=== PATIENT | male | born 1990 | race Caucasian/White ===

== ENCOUNTER 2021-05-21 18:14 | Emergency (ER) | payer OTHER, SELFPAY ==
[2021-05-21 18:15] VITALS: BP 151/82; PULSE 81; RESP 20; TEMP 37.2; O2SAT 97; BMI 54.2
[2021-05-21 18:50] LABS: UTC Strep Screen (Rapid) Positive (Negative)
[2021-05-21 18:51] LABS: UTC Influenza A Antigen Negative (Negative); UTC Influenza B Antigen Negative (Negative)
--- NOTE | 2021-05-21 19:00 | HMH.EDUTC ---
[facility] [place] Disposition Clinical Impression: Strep sore throat Disposition: Home, Self-Care Condition on Discharge: Good Instructions: DI for Strep Throat Additional Instructions: Start antibiotics today be sure to take it as ordered with the full length of time although you should start feeling better in 24-48 hours. Change toothbrush and toothpaste 24-48 hours after starting antibiotics Tylenol or Motrin as needed for fever or pain Encourage fluids, water, Gatorade, Powerade, try cold fluids, popsicles, ice cream will make it feel better You are contagious for 24 hours. Avoid kissing anyone, no eating or drinking after anyone. You are contagious. Follow-up the ER for new or worsening symptoms or no noticeable improvement over the next 24-48 hours. Follow-up with PCP this week. Prescriptions: Azithromycin [Zithromax 200mg/5ml Oral Susp.] 500 mg PO ONCE 5 Days #100 ml Transmission Status: Pending to [facility] Referrals: Kaelyn Sanchez [Primary Care Provider] - Time of Disposition: 19:04 Medical Decision Making - Marin Inquiry Pt receiving controlled substance: No Vital Signs: 05/21/21 18:15 Temperature 99.0 F Temperature Source Oral Pulse Rate [Right Brachial] 81 Respiratory Rate 20 Blood Pressure [Right Arm] 151/82 H Blood Pressure Mean [Right Arm] 105 Blood Pressure Source [Right Arm] Automatic Cuff Blood Pressure Position [Right Arm] Sitting 02 Sat by Pulse Oximetry 97 Oxygen Delivery Method Room Air - Lab Data Lab Results 05/21/21 18:33: Influenza Type A Ag Negative, Influenza Type B Ag Negative 05/21/21 18:33: Strep Scn Rapid Clinic Positive A Orders (Tests/Meds): ORDERS Category Date Time Status Covid-19 Nasal PCR ([facility]) Routine Lab 05/21/21 18:[address] [facility] [place] HPI - General Chief complaint: Urgent Treatment Center Stated complaint: SORE THROAT,sob. COVID TEST Time Seen by Provider: 05/21/21 19:01 Mode of Arrival: Ambulatory Source of Information: Patient Limitations: No Limitations Description of Symptoms (Recalled from Triage Doc. by RN): PATIENT C/O SOA, SORE THROAT, AND FATIGUE X 2 DAYS. RECENTLY EXPOSED TO COVID HEENT Symptoms (Recalled from RN notes): Yes Resp Symptoms (Recalled from RN notes): No Skin Symptoms (Recalled from RN notes): No MS Symptoms (Recalled from RN notes): No Functional Status (Recalled from RN notes): WNL - History of Present Illness Provider Complaint: 31 yr old male presents for sore throat and soa. - Related Data Previous Rx's Medication Instructions Recorded Azithromycin [Zithromax 200mg/5ml 500 mg PO ONCE 5 Days #100 ml 05/21/21 Oral Susp.] Allergies Allergy/AdvReac Type Severity Reaction Status Date / Time No Known Allergies Allergy Verified 05/21/21 18:39 - Worker's Comp Is this a Worker's Comp case?: No [facility] History - Hepatitis A Screen Drug use history?: No High risk sexual behaviors?: No History of sexually transmitted infection?: No Currently employed?: No Childcare worker?: No Do you have indoor plumbing?: Yes Do you have electricity?: Yes Attestation statement:: This patient has been screened for Hepatitis A risk factors. I have reviewed the patient's past medical history: Yes ROS Obtained: Yes Systems reviewed as appropriate & no additional complaints - Constitutional Constitutional: Reports system reviewed and no additional complaints, except as docu, Denies fever(s) - Eyes Eyes: Reports system reviewed and no additional complaints, except as docu, Denies blurry vision - ENT Ears, Nose, Mouth, and Throat: Reports system reviewed and no additional complaints, except as docu, Reports sore throat - Cardiovascular Cardiovascular: Reports system reviewed and no additional complaints, except as docu, Denies chest pain - Respiratory Respiratory: Reports system reviewed and no additional complaints, except as docu, Reports shortness of breath, Denies chest congestion, Reports cough - Ga
[2021-05-21 19:06] VITALS: BP 151/82; PULSE 81; RESP 20; TEMP 37.2; O2SAT 97
== END 2021-05-21 19:13 | disposition home or self-care (01) ==
PROVIDERS: Emergency Provider Nurse Practitioner Family; PCP Nurse Practitioner Family
DX: J02.0 Streptococcal pharyngitis (principal)
CPT/HCPCS: 87804; 87880; 99203; C9803; G0463; U0003; U0005

== ENCOUNTER 2021-05-31 07:42 | Emergency (ER) | payer OTHER, SELFPAY ==
[2021-05-31 07:44] VITALS: BP 152/105; PULSE 88; RESP 18; TEMP 36.7; O2SAT 98; BMI 54.2
--- NOTE | 2021-05-31 08:06 | XR_ITS ---
PROCEDURE: XR CHEST 2V CLINICAL HISTORY: coughing up blood COMPARISON: No exams were available for comparison FINDINGS: The cardiomediastinal silhouette and pulmonary vascularity are within normal limits. The lungs are clear without infiltrates, suspicious nodules, or pleural effusions. Degenerative changes thoracic spine with mild kyphosis IMPRESSION: No acute findings. Dictated by: Jarrett Aguirre MD 05/31/2021 08:52 Jarrett Aguirre MD in [place] 05/31/2021 08:52
--- NOTE | 2021-05-31 08:24 | ECG_ITS ---
APPROVED REPORT Exam: Resting ECG HR:75 bpm ECG Measurements Heart Rate 75 AXES LA 148 P 30 QRSd 94 QRS 22 QT 376 T 16 QTc 419 Conclusion Normal sinus rhythm Normal ECG Electronically signed by : Zaire Downey MD 05/31/2021 20:33:43
[2021-05-31 08:42] LABS: Chloride 104 mmol/L (98-107); Sodium 140 mmol/L (136-145)
[2021-05-31 08:45] LABS: Alanine Aminotransferase 44 U/L (12-78); Albumin Level 4.5 g/dl (3.5-5.0); Albumin/Globulin Ratio 1.4 (1.1-1.8); Alkaline Phosphatase 73 U/L (38-126); Aspartate Amino Transferase 40 U/L (17-59); Bilirubin,Total 0.4 mg/dl (0.2-1.3); Blood Urea Nitrogen 15 mg/dl (9-20); Calcium 9.1 mg/dl (8.4-10.2); Carbon Dioxide 26 mmol/L (22.0-30.0); Creatinine Clearance Estimated 129 mL/min (50-200); Estimated Glomerular Filt Rate 98 ml/min (>60); GFR (African American) 118 ML/MIN (>60); Globulin 3.3 g/dL (1.3-3.2); Glucose 130 mg/dl (74-100); Total Protein,Serum 7.8 g/dl (6.3-8.2)
[2021-05-31 08:58] LABS: Troponin I < 0.01 ng/ml (0.00-0.034)
--- NOTE | 2021-05-31 09:29 | HMH.EDGENADL ---
ED Disposition Clinical Impression: Hemoptysis Disposition: Home, Self-Care Condition on Discharge: Fair Referrals: Kaelyn Sanchez [Primary Care Provider] - - Critical Care Critical Care Time: No Attestation: On 05/31/21, the high probability of a clinically significant, sudden or life threatening deterioration of the following system(s) required my full and direct attention, intervention and personal management. The time I documented below is in addition to time spent performing reported procedures but includes the following listed in this critical care notation. Medical Decision Making - Medical Records Medical records reviewed: Yes: I reviewed the patient's medical records. - Marin Inquiry Pt receiving controlled substance: No Marin was queried for this patient: No Vital Signs: 05/31/21 07:44 Temperature 98.1 F Temperature Source Oral Pulse Rate [Right Radial] 88 Respiratory Rate 18 Blood Pressure [Right Arm] 152/105 H Blood Pressure Mean [Right Arm] 120 Blood Pressure Source [Right Arm] Automatic Cuff Blood Pressure Position [Right Arm] Sitting 02 Sat by Pulse Oximetry 98 Oxygen Delivery Method Room Air - Lab Data Lab results reviewed: Yes: I reviewed the patient's lab results. Lab Results 05/31/21 08:15: WBC 9.7, RBC 5.21, Hgb 14.0 L, Hct 43.4, MCV 83.2, MCH 26.9 L, MCHC 32.4, RDW 14.5, Plt Count 288, MPV 8.6, Neut % (Auto) 72.7, Lymph % (Auto) 17.1, [place] % (Auto) 6.8, Eos % (Auto) 2.5, Baso % (Auto) 0.8, Neut # (Auto) 7.1, Lymph # (Auto) 1.7, [place] # (Auto) 0.7, Eos # (Auto) 0.2, Baso # (Auto) 0.1 05/31/21 08:15: PT 10.8, INR 0.95 05/31/21 08:15: D-Dimer 0.55 H 05/31/21 08:15: Sodium 140, Potassium 4.0, Chloride 104, Carbon Dioxide 26, Anion Gap 14.0, BUN 15, Creatinine 0.90, Estimated Creat Clear 129, Estimated GFR 98, Est GFR ( Amer) 118, Glucose 130 H, Calcium 9.1, Total Bilirubin 0.4, AST 40, ALT 44, Alkaline Phosphatase 73, Troponin I < 0.01, Total Protein 7.8, Albumin 4.5, Globulin 3.3 H, Albumin/Globulin Ratio 1.4 05/31/21 11:25: Troponin I < 0.01 Result diagrams: 05/31/21 08:15 05/31/21 08:15 Orders (Tests/Meds): ED MEDICATIONS Discontinued Medications Generic Name Dose Route Start Last Admin Trade Name Dayna PRN Reason Stop Dose Admin Iopamidol 100 ml 05/31/21 11:11 05/31/21 11:10 Iopamidol-370 (76%);100ml Bottle IV 05/31/21 11:12 100 ml ONCE ONE Administration Sodium Chloride 50 ml 05/31/21 11:11 05/31/21 11:10 0.9 % Sodium Chloride 50 Ml Vial IV 05/31/21 11:12 50 ml ONCE ONE Administration Sodium Chloride 10 ml 05/31/21 11:11 05/31/21 11:10 Sodium Chloride 0.9% 10ml Syr (Rad Only) IV 05/31/21 11:12 10 ml ONCE ONE Administration ORDERS Category Date Time Status Troponin I Q3H Lab 05/31/21 14:30 Ordered Medical Decision Narrative: Patient is a 31-year-old male past medical history presenting to the ED for hemoptysis. Patient is awake, alert, not in acute distress. Patient is hemodynamically stable, afebrile. Patient's physical exam is unremarkable. Has clear breath sounds bilaterally. Extremity edema, no calf tenderness. Differential includes but is not limited to airway irritation, bronchitis, low concern for pulmonary embolism, pulmonary infarct. given this a CBC, CMP, troponin, EKG, D-dimer, chest x-ray is performed. Lab work is unremarkable except for the D-dimer which is mildly elevated, chest x-ray is unremarkable. CT PE is performed which is negative for any pulmonary embolism, airspace disease. At this point patient stable for discharge. Patient is given strict return precautions and follow-up instructions. General Adult HPI - General Chief complaint: Upper Respiratory Infection Stated complaint: spitting up blood Time Seen by Provider: 05/31/21 08:29 Mode of Arrival: Ambulatory Limitations: No Limitations Description of Symptoms (Recalled from ER Triage Doc. by RN): Pt reports he woke up this morning
--- NOTE | 2021-05-31 10:17 | PC.NURSE ---
lab staff states they are working on cbc and ddimer at this time
[2021-05-31 10:29] LABS: D-Dimer 0.55 ug/mL (0.0-0.5)
[2021-05-31 10:37] LABS: Basophils # 0.1 K/mm3 (0-0.2); Basophils % 0.8 % (0.1-2.0); Eosinophils # 0.2 K/mm3 (0.0-0.4); Eosinophils % 2.5 % (0.1-12.0); Hematocrit 43.4 % (42.0-52.0); Lymphocytes # 1.7 K/mm3 (0.7-4.5); Lymphocytes % 17.1 % (10-50); Mean Corpuscular HGB Conc 32.4 g/dL (31.8-35.4); Mean Corpuscular Hemoglobin 26.9 pg (27.0-31.2); Mean Corpuscular Volume 83.2 fl (80-94); Mean Platelet Volume 8.6 fl (7.4-10.4); Monocytes # 0.7 K/mm3 (0.1-1.0); Monocytes % 6.8 % (1.7-9.3); Neutrophils # 7.1 K/mm3 (1.8-7.8); Neutrophils % 72.7 % (37.0-80.0); Platelet Count 288 K/mm3 (142-424); Red Blood Count 5.21 M/mm3 (4.60-6.20); Red Cell Distribution Width 14.5 % (11.5-17.5); White Blood Count 9.7 K/mm3 (4.8-10.8)
--- NOTE | 2021-05-31 10:39 | CT_ITS ---
PROCEDURE INFORMATION: Exam: CTA Chest With Contrast Exam date and time: 05/31/2021 10:39 AM Age: 31 years old Clinical indication: Abnormal findings; Other: Elevated d dimer; Other: Hemopytysis; Additional info: Elevated d dimer, hemopytysis TECHNIQUE: Imaging protocol: Computed tomographic angiography of the chest with contrast. 3D rendering (Not supervised by radiologist): MIP and/or 3D reconstructed images were created by the technologist. Radiation optimization: All CT scans at this facility use at least one of these dose optimization techniques: automated exposure control; mA and/or kV adjustment per patient size (includes targeted exams where dose is matched to clinical indication); or iterative reconstruction. Contrast material: ISOVUE 370; Contrast volume: 100 ml; Contrast route: INTRAVENOUS (IV); COMPARISON: CR XR CHEST 2V 05/31/2021 8:21 AM FINDINGS: Pulmonary arteries: Normal. No pulmonary emboli. Aorta: Unremarkable. No aortic aneurysm. No aortic dissection. Lungs: Unremarkable. No consolidation. No masses. Pleural spaces: Unremarkable. No pneumothorax. No pleural effusion. Heart: Unremarkable. No cardiomegaly. No pericardial effusion. Lymph nodes: Unremarkable. No enlarged lymph nodes. Gallbladder and bile ducts: Stones in the gallbladder. No inflammatory changes. Bones/joints: Unremarkable. No acute fracture. Soft tissues: Unremarkable. IMPRESSION: Unremarkable CT angiogram chest.
[2021-05-31 10:40] LABS: INR 0.95 (0.9-1.1); Prothrombin Time 10.8 seconds (10.1-12.5)
--- NOTE | 2021-05-31 10:55 | PC.NURSE ---
Going for CAT scan
[2021-05-31 11:54] LABS: Troponin I < 0.01 ng/ml (0.00-0.034)
[2021-05-31 12:30] VITALS: BP 152/105; PULSE 88; RESP 18; TEMP 36.7; O2SAT 98
== END 2021-05-31 12:30 | disposition home or self-care (01) ==
PROVIDERS: Emergency Provider Emergency Medicine; PCP Nurse Practitioner Family
DX: J06.9 Acute upper respiratory infection, unspecified (principal)
CPT/HCPCS: 36415; 71046; 71275; 80053; 84484; 85025; 85378; 85610; 93005; 99283; Q9967

== ENCOUNTER 2021-11-05 14:55 | Emergency (ER) | payer OTHER, SELFPAY ==
[2021-11-05 15:03] VITALS: BP 137/94; PULSE 87; RESP 18; O2SAT 99; BMI 51.3
--- NOTE | 2021-11-05 15:11 | XR_ITS ---
PROCEDURE INFORMATION: Exam: XR Left Ankle Exam date and time: 11/05/2021 3:30 PM Age: 31 years old Clinical indication: Pain; Ankle and foot; Left; Additional info: Pain- and swollen- no injury just pain TECHNIQUE: Imaging protocol: XR Left ankle. Views: 3 or more views. COMPARISON: No relevant prior studies available. FINDINGS: Bones/joints: No acute fracture or dislocation. Ankle mortise is intact. Normal bone mineralization. Soft tissues: Mild soft tissue swelling at the level of the ankle joint. IMPRESSION: Soft tissue swelling.
--- NOTE | 2021-11-05 15:11 | XR_ITS ---
PROCEDURE INFORMATION: Exam: XR Left Foot Exam date and time: 11/05/2021 3:32 PM Age: 31 years old Clinical indication: Pain; Ankle and foot; Left; Additional info: Pain and swollen at ankle -- no injury just pain TECHNIQUE: Imaging protocol: XR Left foot. Views: 3 or more views. COMPARISON: CR XR ANKLE LT MIN 3V 11/05/2021 3:30 PM FINDINGS: Bones/joints: No acute fracture or dislocation. Joint spaces are preserved. Normal bone mineralization. Soft tissues: Normal. IMPRESSION: No acute findings.
[2021-11-05 15:20] VITALS: BP 137/94; PULSE 87; RESP 18; TEMP 36.7; O2SAT 99; BMI 51.3
--- NOTE | 2021-11-05 15:44 | HMH.EDUTC ---
[facility] [place] Clinical Impression: Gout attack Qualifiers: Gout site: ankle Gout etiology: unspecified cause Laterality: left Qualified Code(s): M10.9 - Gout, unspecified Disposition: Home, Self-Care Condition on Discharge: Good Instructions: Gout, DI for Gout Additional Instructions: Take medication as prescribed Follow up with your Family Doctor for further treatment and evaluation Use Crutches to get around until able to walk on foot/ankle Return if needed Straight to ER if any life threatening symptoms Prescriptions: Colchicine [Colcrys 0.6mg tablet] 0.6 mg PO DIRECTED #6 tab Transmission Status: Received by [facility] [id number] Walker [Walker, Standard] 1 each MISCELLANE DIRECTED #1 each Prescription Printed Referrals: Kaelyn Sanchez [Primary Care Provider] - As needed Time of Disposition: 17:17 Medical Decision Making - Marin Inquiry Pt receiving controlled substance: No Marin was queried for this patient: No Vital Signs: 11/05/21 15:03 11/05/21 15:20 Temperature 98.0 F Temperature Source Oral Pulse Rate [Left Radial] 87 87 Respiratory Rate 18 18 Blood Pressure [Right Arm] 137/94 H 137/94 H Blood Pressure Mean [Right Arm] 108 108 Blood Pressure Source [Right Arm] Automatic Cuff Automatic Cuff Blood Pressure Position [Right Arm] Sitting Sitting 02 Sat by Pulse Oximetry 99 99 Oxygen Delivery Method Room Air Room Air - Lab Data Lab results reviewed: Yes: I reviewed the patient's lab results. Lab Results 11/05/21 16:30: Uric Acid 9.0 H Orders (Tests/Meds): ED MEDICATIONS Discontinued Medications Generic Name Dose Route Start Last Admin Trade Name Dayna PRN Reason Stop Dose Admin Ketorolac Tromethamine 60 mg 11/05/21 17:11 11/05/21 17:20 Ketorolac 60mg/2ml Vial IM 11/05/21 17:12 60 mg ONCE ONE Administration Methylprednisolone Sodium Succinate 125 mg 11/05/21 17:11 11/05/21 17:20 Methylprednisolone Sod Succ 125mg Vial IM 11/05/21 17:12 125 mg ONCE ONE Administration - Radiology Data #1 Image(s): Ankle Image Reviewed: Yes I have reviewed radiologist's interpretation IMPRESSION: Soft tissue swelling. #2 Image(s): Foot/Toes Image Reviewed: Yes I have reviewed radiologist's interpretation IMPRESSION: No acute findings. Medical Decision Narrative: Medication discussed with pharmacy [facility] [place] HPI - General Stated complaint: left foot pain, no accident Time Seen by Provider: 11/05/21 15:45 Mode of Arrival: Ambulatory Source of Information: Patient Limitations: No Limitations Description of Symptoms (Recalled from Triage Doc. by RN): PATIENT C/O PAIN TO LEFT FOOT AND INABILITY TO BEAR WEIGHT. 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 HEENT Symptoms (Recalled from RN notes): No Resp Symptoms (Recalled from RN notes): No Skin Symptoms (Recalled from RN notes): No MS Symptoms (Recalled from RN notes): Yes Functional Status (Recalled from RN notes): WNL - History of Present Illness Provider Complaint: Pt states that he started having pain in his left foot and ankle with swelling Denies known injury States that he has pain when he tries to bear weight on it and pain shoots through his foot and ankle States that he did twist it when he was younger not sure if he may have aggrivated an old injury - Related Data Home Medications Medication Instructions Recorded Confirmed Aspirin [Aspirin 81mg EC Tab] 81 mg PO DAILY 05/31/21 05/31/21 Previous Rx's Medication Instructions Recorded Azithromycin [Zithromax 200mg/5ml 500 mg PO ONCE 5 Days #100 ml 05/21/21 Oral Susp.] Fluticasone Propionate [Flonase 1 spr NS DAILY 14 Days #9.9 ml 05/21/21 50mcg nasal spray 16gm] Colchicine [Colcrys 0.6mg tablet] 0.6 mg PO DIRECTED #6 tab 11/05/21 Walker [Walker, Standard] 1 each MISCELLANE DIRECTED #1 11/05/21 each Allergies Allergy/AdvReac Type Severity Reacti
[2021-11-05 17:25] VITALS: BP 137/94; PULSE 87; RESP 18; TEMP 36.7; O2SAT 99
== END 2021-11-05 17:30 | disposition home or self-care (01) ==
LOC: UTC 15:16 → ER 16:01 → UTC 16:13
PROVIDERS: Emergency Provider Nurse Practitioner; PCP Nurse Practitioner Family
DX: M10.072 Idiopathic gout, left ankle and foot (principal)
CPT/HCPCS: 73610; 73630; 84550; 99213; G0463

== ENCOUNTER 2022-02-03 09:40 | Emergency (ER) | payer OTHER, SELFPAY ==
--- NOTE | 2022-02-03 10:06 | EXP.UTC ---
Discharge Plan Disposition Patient Disposition: Home, Self-Care Condition: Good Prescriptions Prescriptions: New methylprednisolone [Medrol (Cristian)] 4 mg tablets,dose pack 4 mg PO DIRECTED Qty: 21 0RF Rx Instructions: Per package instructions, starting Saturday morning No Action azithromycin 200 MG/5 ML suspension for reconstitution 500 mg PO ONCE 5 Days Qty: 100 0RF Rx Instructions: 500mg po day 1 then 250 mg po day 2-5 fluticasone propionate 120 SPR/BOT bottle 1 spr NS DAILY 14 Days Qty: 9.9 0RF aspirin 81 MG tablet,delayed release (DR/EC) 81 mg PO DAILY colchicine 0.6 MG tablet 0.6 mg PO DIRECTED Qty: 6 0RF Rx Instructions: Take 2 tablets now followed by 1 tablet (0.6mg) 1 hour later. may repeat in 72 hours (3 days) if still having pain (DME) Walker [Walker, Standard] 1 EACH Each 1 each MISCELLANE DIRECTED Qty: 1 0RF Referrals Follow up/Referrals: Kaelyn Sanchez [Primary Care Provider] - See instructions Activity Restrictions/Add. Instructions Additional Instructions/Restrictions: Follow up with Kaelyn Sanchez to discuss options to prevent future attacks Clinical Impressions Clinical Impression: Gout attack Instructions Patient Instructions: DI for Gout Discharge ED Provider: Tierra Lopez [facility] General Stated complaint: gout in L foot Time Seen by Provider: 02/03/22 10:06 History of Present Illness Provider Complaint: Pain, redness, swelling left ankle since he woke up this am. History of gout in same ankle a few months ago. Started after drinking mixed drink last night. No injury. Onset (ago): day(s) Location: left and lower extremity Radiation: non-radiation Relieving factors: none Exacerbating factors: none Associated symptoms: denies other symptoms Treatments prior to arrival: none Related Data Home Medications Medication Instructions Recorded Confirmed aspirin 81 mg tablet,delayed 81 mg PO DAILY heart health 05/31/21 05/31/21 release Previous Rx's Medication Instructions Recorded azithromycin 200 mg/5 mL oral 500 mg (12.5 mL) PO ONCE 5 days 05/21/21 suspension #100 mL fluticasone propionate 50 1 spr NS DAILY 14 days #9.9 mL 05/21/21 mcg/actuation nasal spray,suspension Walker [Walker, Standard] #1 ea 11/05/21 colchicine 0.6 mg tablet 0.6 mg PO DIRECTED #6 tabs 11/05/21 methylprednisolone 4 mg tablets in 4 mg PO DIRECTED #21 tabs 02/03/22 a dose pack (Medrol (Cristian)) Allergies Allergy/AdvReac Type Severity Reaction Status Date / Time No Known Allergies Allergy Verified 02/03/22 10:22 [facility] Social History (Updated 02/03/22 @ 10:22 by Jimi Grewal RN) Smoking Status: Unknown if ever smoked alcohol intake: current current occupational status: employed ROS Obtained: Yes All systems reviewed & no additional complaints except as documented Musculoskeletal Musculoskeletal: Reports abnormal gait and Reports arthralgias Neurologic Neurologic: Reports abnormal gait Physical Exam General General appearance: alert and in no apparent distress Head Head exam: atraumatic, normocephalic and normal inspection Eye Eye exam: Present normal appearance, PERRL and EOMI ENT ENT exam: Present normal exam, normal oropharynx, mucous membranes moist, TM's normal bilaterally and normal external ear exam Neck Neck exam: Present normal inspection, full ROM and trachea midline; Absent meningismus or lymphadenopathy Chest Chest inspection: Present normal inspection and symmetric chest wall rise; Absent tenderness Respiratory Respiratory exam: Present normal lung sounds bilaterally; Absent respiratory distress Cardiovascular Cardiovascular exam: Present regular rate and normal rhythm; Absent JVD Abdominal Exam Abdominal exam: Present soft and normal bowel sounds; Absent distention, tenderness or guarding Extremities Exam Extremities exam: Present normal inspection, full ROM and normal capillary
[2022-02-03 10:17] VITALS: BP 137/84; PULSE 84; RESP 15; TEMP 37.3; O2SAT 96; BMI 51.3
[2022-02-03 10:59] VITALS: BP 137/84; PULSE 84; RESP 15; TEMP 37.3
== END 2022-02-03 11:00 | disposition home or self-care (01) ==
PROVIDERS: Emergency Provider Physician Assistant; PCP Nurse Practitioner Family
DX: M10.9 Gout, unspecified (principal)
CPT/HCPCS: 96372; 99212; G0463; J1040

== ENCOUNTER 2022-05-23 13:06 | Emergency (ER) | payer OTHER, SELFPAY ==
[2022-05-23 14:45] VITALS: BP 123/74; PULSE 78; RESP 18; TEMP 37.1; O2SAT 98; BMI 51.3
--- NOTE | 2022-05-23 14:48 | EXP.UTC ---
Discharge Plan Disposition Patient Disposition: Home, Self-Care Condition: Good Prescriptions Prescriptions: New methylprednisolone 4 mg Tablets,Dose Pack 4 mg PO DIRECTED Qty: 21 0RF No Action azithromycin 200 MG/5 ML suspension for reconstitution 500 mg PO ONCE 5 Days Qty: 100 0RF Rx Instructions: 500mg po day 1 then 250 mg po day 2-5 fluticasone propionate 120 SPR/BOT bottle 1 spr NS DAILY 14 Days Qty: 9.9 0RF methylprednisolone [Medrol (Cristian)] 4 mg tablets,dose pack 4 mg PO DIRECTED Qty: 21 0RF Rx Instructions: Per package instructions, starting Saturday morning aspirin 81 MG tablet,delayed release (DR/EC) 81 mg PO DAILY colchicine 0.6 MG tablet 0.6 mg PO DIRECTED Qty: 6 0RF Rx Instructions: Take 2 tablets now followed by 1 tablet (0.6mg) 1 hour later. may repeat in 72 hours (3 days) if still having pain (DME) Walker [Walker, Standard] 1 EACH Each 1 each MISCELLANE DIRECTED Qty: 1 0RF Referrals Follow up/Referrals: Kaelyn Sanchez [Primary Care Provider] - See instructions Activity Restrictions/Add. Instructions Additional Instructions/Restrictions: Rest the extremity, apply ice for 15 minutes as tolerated three or four times per day, Wear the nohemi wrap for compression, Elevate the extremity as tolerated while you are resting. Take the mediction as directed. Don't start the oral steroids (methylprednisone) until tomorrow since you had the shot here today. Follow up with your regular doctor. GO TO THE ER FOR ANY WORSENING SYMPTOMS Clinical Impressions Clinical Impression: Gout attack Instructions Patient Instructions: NICOLA Enriquez for Gout Discharge ED Provider: Jude Pugh [facility] General Stated complaint: possible gout flare up Time Seen by Provider: 05/23/22 14:48 History of Present Illness Provider Complaint: He states that for the past 2 days he has had right ankle pain. He has a history of gout. It usually affects his other ankle, but he states that this feels just like his normal gout symptoms and he is sure that is what it is. He denies any injury. He denies any other joint pain. Related Data Home Medications Medication Instructions Recorded Confirmed aspirin 81 mg tablet,delayed 81 mg PO DAILY heart health 05/31/21 05/31/21 release Previous Rx's Medication Instructions Recorded azithromycin 200 mg/5 mL oral 500 mg (12.5 mL) PO ONCE 5 days 05/21/21 suspension #100 mL fluticasone propionate 50 1 spr NS DAILY 14 days #9.9 mL 05/21/21 mcg/actuation nasal spray,suspension Walker [Walker, Standard] #1 ea 11/05/21 colchicine 0.6 mg tablet 0.6 mg PO DIRECTED #6 tabs 11/05/21 methylprednisolone 4 mg tablets in 4 mg PO DIRECTED #21 tabs 02/03/22 a dose pack (Medrol (Cristian)) methylprednisolone 4 mg tablets in 4 mg PO DIRECTED #21 tabs 05/23/22 a dose pack Allergies Allergy/AdvReac Type Severity Reaction Status Date / Time No Known Allergies Allergy Verified 02/03/22 10:22 [facility] Disclaimer: The information contained in this section may have been updated after the patient was seen, as this information can be updated by other users. Social History Smoking Status: Unknown if ever smoked alcohol intake: current current occupational status: employed Travel in the last 8 weeks: None ROS Obtained: Yes All systems reviewed & no additional complaints except as documented Constitutional Constitutional: Denies chills and Denies fever(s) Integumentary/Breasts Skin/Breast: Denies redness, Denies rash and Denies wounds Neurologic Neurologic: Denies paresthesias Physical Exam General General appearance: alert and in no apparent distress Head Head exam: atraumatic, normocephalic and normal inspection Eye Eye exam: Present normal appearance, PERRL and EOMI ENT ENT exam: Present normal exam, normal oropharynx, mucous membranes
[2022-05-23 15:52] VITALS: BP 123/74; PULSE 78; RESP 18; TEMP 37.1
== END 2022-05-23 15:52 | disposition home or self-care (01) ==
PROVIDERS: Emergency Provider Nurse Practitioner Family; PCP Nurse Practitioner Family
DX: M25.571 Pain in right ankle and joints of right foot (principal); M10.9 Gout, unspecified; Z79.51 Long term (current) use of inhaled steroids; Z79.52 Long term (current) use of systemic steroids; Z79.82 Long term (current) use of aspirin; Z79.899 Other long term (current) drug therapy
CPT/HCPCS: 96372; 99213; G0463

== ENCOUNTER 2022-07-25 09:59 | Emergency (ER) | payer OTHER, SELFPAY ==
[2022-07-25 10:10] VITALS: BP 156/84; PULSE 83; RESP 20; TEMP 37.1; O2SAT 97; BMI 52.9
--- NOTE | 2022-07-25 10:10 | EXP.UTC ---
Discharge Plan Disposition Patient Disposition: Home, Self-Care Condition: Good Prescriptions Prescriptions: New esomeprazole magnesium [Nexium] 20 mg capsule,delayed release(DR/EC) 20 mg PO DAILY Qty: 30 2RF benzonatate [benzonatate] 100 mg capsule 100 mg PO TIDP PRN (Reason: Cough) Qty: 30 0RF methylprednisolone 4 mg Tablets,Dose Pack 4 mg PO DIRECTED Qty: 21 0RF amoxicillin [amoxicillin] 400 mg/5 mL suspension for reconstitution 500 mg PO TID 10 Days Qty: 187.5 0RF No Action aspirin 81 MG tablet,delayed release (DR/EC) 81 mg PO DAILY colchicine 0.6 MG tablet 0.6 mg PO DIRECTED Qty: 6 0RF Rx Instructions: Take 2 tablets now followed by 1 tablet (0.6mg) 1 hour later. may repeat in 72 hours (3 days) if still having pain (DME) Walker [Walker, Standard] 1 EACH Each 1 each MISCELLANE DIRECTED Qty: 1 0RF Referrals Follow up/Referrals: Nakul Zarate II, MD [Referring] - See instructions Kaelyn Sanchez [Primary Care Provider] - See instructions Activity Restrictions/Add. Instructions Additional Instructions/Restrictions: Drink plenty of fluids. Take tylenol or ibuprofen for pain or fever. Take the medications as directed. Follow up with your regular doctor. GO TO THE ER FOR ANY WORSENING SYMPTOMS Stop the prilosec that you are taking and start taking the nexium. If your insurance won't pay for the nexium, ask the pharmacist to call me here and we can discuss what your insurance will pay for. Keep taking the famotidine (pepcid). I am putting in a referral to the GI specialist (Dr. Zarate). Please call his office and get an appointment. If these symptoms have been going on for years despite taking medications for it, then you need to be checked out better to make sure it's not something besides acid reflux causing your symptoms. A GI specialist is the right person to do this. Clinical Impressions Clinical Impression: Pharyngitis, Acid reflux disease Stand Alone Forms Stand Alone Forms: Work/School Release Instructions Patient Instructions: DI for Pharyngitis/Tonsillopharyngitis -- Adult, DI for Gastroesophageal Reflux Disease (GERD), GERD Diet, Esomeprazole Discharge ED Provider: Jude [place]ugh [facility] [place] General Stated complaint: Sore throat congestion drainage sinus pain Time Seen by Provider: 07/25/22 10:09 History of Present Illness Provider Complaint: He states that for the past 1 day he has had sore throat, sinus congestion and malaise. Related Data Home Medications Medication Instructions Recorded Confirmed aspirin 81 mg tablet,delayed 81 mg PO DAILY heart health 05/31/21 05/31/21 release Previous Rx's Medication Instructions Recorded Jesus [Jesus, Ramone] #1 ea 11/05/21 colchicine 0.6 mg tablet 0.6 mg PO DIRECTED #6 tabs 11/05/21 amoxicillin 400 mg/5 mL oral 500 mg (6.25 mL) PO TID 10 days 07/25/22 suspension #187.5 mL benzonatate 100 mg capsule 100 mg PO TIDP PRN Cough #30 caps 07/25/22 esomeprazole magnesium 20 mg 20 mg PO DAILY #30 caps 07/25/22 capsule,delayed release (Nexium) methylprednisolone 4 mg tablets in 4 mg PO DIRECTED #21 tabs 07/25/22 a dose pack Allergies Allergy/AdvReac Type Severity Reaction Status Date / Time No Known Allergies Allergy Verified 07/25/22 10:43 [facility] Disclaimer: The information contained in this section may have been updated after the patient was seen, as this information can be updated by other users. Social History Smoking Status: Unknown if ever smoked alcohol intake: current current occupational status: employed Travel in the last 8 weeks: None ROS Obtained: Yes All systems reviewed & no additional complaints except as documented Constitutional Constitutional: Reports chills and Reports fever(s) Eyes Eyes: Denies eye discharge ENT Ears, Nose, Mouth, and Throat: Reports as per HPI [facility]
[2022-07-25 10:35] LABS: UTC Strep Screen (Rapid) Negative (Negative)
[2022-07-25 11:14] VITALS: BP 156/84; PULSE 83; RESP 20; TEMP 37.1; O2SAT 97
== END 2022-07-25 11:00 | disposition home or self-care (01) ==
PROVIDERS: Emergency Provider Nurse Practitioner Family; PCP Nurse Practitioner Family
DX: J02.9 Acute pharyngitis, unspecified (principal); K21.9 Gastro-esophageal reflux disease without esophagitis
CPT/HCPCS: 87880; 99212; 99213; G0463

== ENCOUNTER 2023-12-31 01:58 | Emergency (ER) | payer MEDICAID, SELFPAY ==
[2023-12-31 01:59] VITALS: BP 126/79; PULSE 92; RESP 18; TEMP 36.4; O2SAT 98; BMI 46.2
--- NOTE | 2023-12-31 02:06 | HMH.EDGENADL ---
Discharge Plan Disposition Patient Disposition: Home, Self-Care Prescriptions Prescriptions: No Action aspirin 81 MG tablet,delayed release (DR/EC) 81 mg PO DAILY colchicine 0.6 MG tablet 0.6 mg PO DIRECTED Qty: 6 0RF Rx Instructions: Take 2 tablets now followed by 1 tablet (0.6mg) 1 hour later. may repeat in 72 hours (3 days) if still having pain (DME) Walker [Walker, Standard] 1 EACH Each 1 each MISCELLANE DIRECTED Qty: 1 0RF esomeprazole magnesium [Nexium] 20 mg capsule,delayed release(DR/EC) 20 mg PO DAILY Qty: 30 2RF benzonatate [benzonatate] 100 mg capsule 100 mg PO TIDP PRN (Reason: Cough) Qty: 30 0RF methylprednisolone 4 mg Tablets,Dose Pack 4 mg PO DIRECTED Qty: 21 0RF amoxicillin [amoxicillin] 400 mg/5 mL suspension for reconstitution 500 mg PO TID 10 Days Qty: 187.5 0RF Referrals Follow up/Referrals: Kaelyn Sanchez [Primary Care Provider] - See instructions Activity Restrictions/Add. Instructions Additional Instructions/Restrictions: Please follow-up with your primary care provider. Please return to the emergency department if you develop any new or worsening symptoms or become concerned for your health. Please take NSAIDs every 6 hours for the next few days to improve inflammation. The steroid will be in your system for the next 2 to 3 days and should help as well. Clinical Impressions Clinical Impression: Gout flare Qualifiers: Gout site: ankle Encounter type: initial encounter Laterality: right Stand Alone Forms Stand Alone Forms: Work/School Release Instructions Patient Instructions: DI for Gout Discharge ED Provider: Mohan Wilks General Adult HPI General Chief complaint: PAIN Stated complaint: right ankle pain Time Seen by Provider: 12/31/23 02:00 History of Present Illness HPI narrative: 33-year-old male with history of morbid obesity, type 2 diabetes, gout presents with right ankle pain. He reports that it has been going on for the last couple of days, he came in tonight because the pain has become unbearable. He reports the symptoms are exactly the same as his prior gout flares. He denies any injury to the area, denies any IV drug use, denies any fever or chills or other systemic symptoms. He reports that his gout is always in the ankle. Related Data Home Medications Medication Instructions Recorded Confirmed aspirin 81 mg tablet,delayed 81 mg PO DAILY heart health 05/31/21 05/31/21 release Previous Rx's Medication Instructions Recorded Walker [Ramone Lee] #1 ea 11/05/21 colchicine 0.6 mg tablet 0.6 mg PO DIRECTED #6 tabs 11/05/21 amoxicillin 400 mg/5 mL oral 500 mg (6.25 mL) PO TID 10 days 07/25/22 suspension #187.5 mL benzonatate 100 mg capsule 100 mg PO TIDP PRN Cough #30 caps 07/25/22 esomeprazole magnesium 20 mg 20 mg PO DAILY #30 caps 07/25/22 capsule,delayed release (Nexium) methylprednisolone 4 mg tablets in 4 mg PO DIRECTED #21 tabs 07/25/22 a dose pack Allergies Allergy/AdvReac Type Severity Reaction Status Date / Time No Known Allergies Allergy Verified 07/25/22 10:43 [facility] Disclaimer: The information contained in this section may have been updated after the patient was seen, as this information can be updated by other users. Social History Smoking Status: Unknown if ever smoked alcohol intake: current current occupational status: employed Travel in the last 8 weeks: None ROS Obtained: Yes All systems reviewed & no additional complaints except as documented Physical Exam General General appearance: alert, in no apparent distress and obese Head Head exam: atraumatic and normocephalic Eye Eye exam: Present normal appearance, PERRL and EOMI ENT ENT exam: Present normal oropharynx and normal external ear exam Neck Neck exam: Present normal inspection and full ROM Chest Chest inspection: Present normal inspection and symmetric chest wall rise; Absent tenderness Respiratory Respiratory exam: Present normal lung sounds bilaterally; Absent respiratory distress Cardiovascular Cardiovascular exam: Present regular rate and normal rhythm Abdominal Exam Abdominal exam: Present soft; Absent distention, tenderness or guarding Extremities Exam Extremities exam: Present joint swelling (Circumferential right ankle swelling, tenderness, mild erythema, no skin breakdown); Absent edema Back Exam Back exam: Present normal inspection; Absent tenderness Neurological Exam Neurological exam: Present alert and oriented X3; Absent motor sensory deficit Psychiatric Psychiatric exam: Present normal affect and normal mood Skin Skin exam: Present warm, dry and normal color Lymphatic Lymphatic Findings: no adenopathy Medical Decision Making Medical Records Medical records reviewed: Yes I reviewed the patient's medical records. [place] Inquiry Pt receiving controlled substance: No [place] was queried for this patient: No Vital Signs: 12/31/23 01:59 12/31/23 02:47 Temperature 97.5 F L 98.0 F Temperature Source Oral Oral Pulse Rate 88 Pulse Rate [Left] 92 H Respiratory Rate 18 18 Blood Pressure 125/75 Blood Pressure [Right Arm] 126/79 Blood Pressure Mean [Right Arm] 94 02 Sat by Pulse Oximetry 98 Oxygen Delivery Method Room Air Room Air Lab Data Lab results reviewed: Yes I reviewed the patient's lab results. Orders (Tests/Meds): ED MEDICATIONS Discontinued Medications Generic Name Dose Route Start Last Admin Trade Name Freq PRN Reason Stop Dose Admin Acetaminophen 1,000 mg 12/31/23 02:11 12/31/23 02:19 Acetaminophen 500mg Tab PO 12/31/23 02:12 Not Given ONCE ONE Acetaminophen 1,000 mg 12/31/23 02:17 12/31/23 02:43 Acetaminophen 160mg/5ml 30ml Bottle PO 12/31/23 02:18 Not Given ONCE ONE Acetaminophen 1,000 mg 12/31/23 02:43 12/31/23 02:44 Acetaminophen 325mg/10.15ml Udc PO 12/31/23 02:44 1,000 mg ONCE ONE Administration Dexamethasone 10 mg 12/31/23 02:11 12/31/23 02:19 Dexamethasone 4mg Tablet PO 12/31/23 02:12 Not Given ONCE ONE Dexamethasone Sodium Phosphate 10 mg 12/31/23 02:17 12/31/23 02:41 Dexamethasone 4mg/Ml 1ml Vial IM 12/31/23 02:18 10 mg ONCE ONE Administration Ketorolac Tromethamine 30 mg 12/31/23 02:11 12/31/23 02:41 Ketorolac 30mg/Ml Vial IM 12/31/23 02:12 30 mg ONCE ONE Administration Morphine Sulfate 4 mg 12/31/23 02:17 12/31/23 02:41 Morphine 2mg/Ml Syringe IM 12/31/23 02:18 4 mg ONCE ONE Administration Oxycodone HCl 5 mg 12/31/23 02:11 12/31/23 02:18 Oxycodone 5mg Immediate Release Tablet PO 12/31/23 02:12 Not Given ONCE ONE Medical Decision Narrative: 33-year-old male with history of obesity, hypertension, type 2 diabetes, gout presents with symptoms consistent with prior gout flares in the right ankle. History was obtained via interactive discussion with patient. On arrival, patient is [afebrile, hemodynamically stable, satting appropriately, alert, oriented x4, GCS 15], moving all extremities spontaneously. Full physical exam performed and significant for right ankle swelling and tenderness Differential includes but is not limited to gout, pseudogout, septic arthritis. Given patient history, exam and workup, patient's presentation most likely represents acute gout flare. Joint tap was considered, but after discussion with patient it was decided that we will elect to treat it as a presumptive gout flare. There is no reason to suspect a underlying septic joint at this time. Patient reports that he has difficulty swallowing pills. Given this, patient was treated with IM Toradol 30, IM morphine 4 mg, IM dexamethasone 10 mg, p.o. Tylenol liquid 1 g. Patient was discharged in stable condition with instructions to follow-up with PCP and take NSAIDs for the next few days. Procedures Risk/Benefits of Procedure(s) Were Explained: Yes Critical Care Critical Care Time Critical Care Time: No
[2023-12-31] MEDS: DEXAMETHASONE 4MG/ML 1ML VIAL 10 MG IM (02:41)
[2023-12-31] MEDS: MORPHINE 2MG/ML SYRINGE 4 MG IM (02:41)
[2023-12-31] MEDS: KETOROLAC 30MG/ML VIAL 30 MG IM (02:41)
[2023-12-31] MEDS: ACETAMINOPHEN 325MG/10.15ML UDC 1000 MG PO (02:44)
[2023-12-31 02:47] VITALS: BP 125/75; PULSE 88; RESP 18; TEMP 36.7; O2SAT 98
== END 2023-12-31 02:56 | disposition home or self-care (01) ==
PROVIDERS: Emergency Provider Emergency Medicine; PCP Nurse Practitioner Family
DX: M10.071 Idiopathic gout, right ankle and foot (principal); M25.571 Pain in right ankle and joints of right foot
CPT/HCPCS: 96372; 99283; J1100; J1885; J2270

== ENCOUNTER 2024-07-10 08:21 | Emergency (ER) | payer MEDICAID, SELFPAY ==
[2024-07-10 08:42] VITALS: BP 124/80; PULSE 91; RESP 19; TEMP 37; O2SAT 99; BMI 55.1
--- NOTE | 2024-07-10 08:46 | ED_ITS ---
Discharge Plan Disposition Patient Disposition: Home, Self-Care Condition: Good Prescriptions Prescriptions: No Action losartan 50 mg tablet 50 mg PO DAILY Patient Comments: TAKE ONE TABLET BY MOUTH EVERY DAY metformin 500 mg tablet 500 mg PO DAILY aspirin 81 mg tablet,delayed release (DR/EC) 81 mg PO DAILY famotidine 20 mg tablet 20 mg PO BID Patient Comments: TAKE ONE TABLET BY MOUTH TWICE DAILY NEEDED metoprolol tartrate 50 mg tablet 50 mg PO BID Patient Comments: TAKE ONE TABLET BY MOUTH TWICE DAILY WITH A MEAL omeprazole 20 mg capsule,delayed release(DR/EC) 20 mg PO BID Patient Comments: TAKE ONE CAPSULE BY MOUTH TWICE DAILY FOR 7 DAYS then take 1 capsule once daily allopurinol 300 mg tablet 300 mg PO DAILY Patient Comments: TAKE ONE TABLET BY MOUTH ONCE DAILY FOR GOUT fluticasone propionate 50 mcg/actuation spray,suspension 1 spray INTRANASAL DAILY Patient Comments: Gans 1 spray into each nostril every day. loratadine 10 mg tablet 10 mg PO DAILY Patient Comments: TAKE ONE TABLET BY MOUTH EVERY DAY for allergies Ozempic 0.25 mg or 0.5 mg (2 mg/3 mL) pen injector 0.25 mg SQ WEEKLY Patient Comments: INJECT 0.5 MG WEEKLY SUBCUTANEOUSLY FOR DIABETES Referrals Follow up/Referrals: Kaelyn Sanchez [Primary Care Provider] - See instructions Activity Restrictions/Add. Instructions Additional Instructions/Restrictions: Rest the extremity, Elevate the extremity as tolerated while you are resting. Take the medications as directed. Follow up with your regular doctor. GO TO THE ER FOR ANY WORSENING SYMPTOMS Clinical Impressions Clinical Impression: Gout attack Stand Alone Forms Stand Alone Forms: Work/School Release Instructions Patient Instructions: DI for Gout, Dexamethasone Print Language Print Language: Serbian Discharge ED Provider: Jude Pugh [facility] [place] HPI General Stated complaint: foot pain, no acc Mode of Arrival: Ambulatory Source of Information: Patient Limitations: No Limitations Time Seen by Provider: 07/10/24 08:45 Description of Symptoms (Recalled from Triage Doc. by RN): PATIENT C/O GOUT PAIN TO LEFT FOOT X 3 DAYS HEENT Symptoms (Recalled from RN notes): No Resp Symptoms (Recalled from RN notes): No Skin Symptoms (Recalled from RN notes): No MS Symptoms (Recalled from RN notes): Yes Functional Status (Recalled from RN notes): WNL Related Data Home Medications ?Medication ?Instructions ?Recorded ?Confirmed allopurinol 300 mg tablet 300 mg PO DAILY 07/10/24 07/10/24 aspirin 81 mg tablet,delayed 81 mg PO DAILY 07/10/24 07/10/24 release famotidine 20 mg tablet 20 mg PO BID 07/10/24 07/10/24 fluticasone propionate 50 1 spray intranasal DAILY 07/10/24 07/10/24 mcg/actuation nasal spray,suspension loratadine 10 mg tablet 10 mg PO DAILY 07/10/24 07/10/24 losartan 50 mg tablet 50 mg PO DAILY 07/10/24 07/10/24 metformin 500 mg tablet 500 mg PO DAILY 07/10/24 07/10/24 metoprolol tartrate 50 mg tablet 50 mg PO BID 07/10/24 07/10/24 omeprazole 20 mg capsule,delayed 20 mg PO BID 07/10/24 07/10/24 release semaglutide 0.25 mg or 0.5 mg (2 0.25 mg SQ WEEKLY 07/10/24 07/10/24 mg/3 mL) subcutaneous pen injector (Citizen.VC) Allergies Allergy/AdvReac Type Severity Reaction Status Date / Time No Known Allergies Allergy Verified 07/25/22 10:43 Worker's Comp Is this a Worker's Comp case?: No [facility] Disclaimer: The information contained in this section may have been updated after the patient was seen, as this information can be updated by other users. Medical History (Updated 07/10/24 @ 09:28 by Jude Pugh APRN) Anxiety Diabetes mellitus, type 2 Hypertension Social History Smoking Status: Unknown if ever smoked alcohol intake: current current occupational status: employed Travel in the last 8 weeks: None Have you lived/traveled outside [place] in past 30 days?: No Contact w/someone who lives/traveled outside [place] past 30 days?: No Exposure to someone with infectious disease in past 14 days?: No Do you have a fever (greater than 100.4 F or 38 C)?: No Have you tested positive for COVID-19: No Exposed to someone with COVID-19 in past 14 days?: No Do you have a sore throat?: No Do you have a cough?: No Do you have any weakness?: No Do you have any diarrhea?: No Are you experiencing any unusual bleeding?: No Do you have any muscle aches/pain?: No Do you have any abdominal pain?: No Are you experiencing loss of taste or smell?: No ROS Obtained: Yes All systems reviewed & no additional complaints except as documented Constitutional Constitutional: Denies chills and Denies fever(s) Eyes Eyes: Denies eye discharge ENT Ears, Nose, Mouth, and Throat: Denies dizziness, Denies otalgia and Denies sore throat Cardiovascular Cardiovascular: Denies chest pain Respiratory Respiratory: Denies shortness of breath, Denies chest congestion, Denies cough, Denies stridor and Denies wheezing Gastrointestinal Gastrointestingal: Denies nausea or vomiting Musculoskeletal Musculoskeletal: Reports as per HPI and Denies numbness Integumentary/Breasts Skin/Breast: Denies redness, Denies rash and Denies wounds Neurologic Neurologic: Denies dizziness, Denies numbness, Denies paresthesias and Denies radicular pain Allergic/Immunologic Allergic/Immunologic: Denies wheezing Physical Exam General General appearance: alert and in no apparent distress Head Head exam: atraumatic, normocephalic and normal inspection Eye Eye exam: Present normal appearance, PERRL and EOMI ENT ENT exam: Present normal exam, normal oropharynx, mucous membranes moist, TM's normal bilaterally and normal external ear exam Neck Neck exam: Present normal inspection, full ROM and trachea midline; Absent meningismus or lymphadenopathy Chest Chest inspection: Present normal inspection and symmetric chest wall rise; Absent tenderness Respiratory Respiratory exam: Present normal lung sounds bilaterally; Absent respiratory distress Cardiovascular Cardiovascular exam: Present regular rate and normal rhythm; Absent JVD Abdominal Exam Abdominal exam: Present soft and normal bowel sounds; Absent distention, tenderness or guarding Extremities Exam Extremities exam: Present normal capillary refill; Absent calf tenderness Expanded Lower Extremity Exam Left: Knee exam: Present normal inspection, full ROM and knee extension intact; Absent tenderness Lower leg exam: Present normal inspection, full ROM and Achilles tendon intact; Absent tenderness or Homans' sign Ankle exam: Present normal inspection and full ROM; Absent tenderness or swelling Foot/toe exam: Present tenderness and swelling; Absent abrasion, laceration, ecchymosis, deformity, crepitus, dislocation, erythema, amputation, puncture wound, foreign body, calcaneal tenderness, tenderness at base of 5th metatarsal, nail avulsion or subungual hematoma Top foot image: 2 1. area of tenderness Neurovascular/Tendon exam: Present normal capillary refill, normal 2-point discrimination and normal fine/light touch; Absent pulse deficit, motor deficit, sensory deficit, tendon deficit, extremity cold to touch or pallor Gait: observed and limited by pain Back Exam Back exam: Present normal inspection; Absent tenderness Neurological Exam Neurological exam: Present alert and oriented X3 Psychiatric Psychiatric exam: Present normal affect and normal mood Skin Skin exam: Present warm, dry, intact and normal color Lymphatic Lymphatic Findings: no adenopathy Medical Decision Making Medical Records Medical records reviewed: No I reviewed the patient's medical records. Screening: Per USPSTF and CDC recommendations, given the prevalence of disease in our region, it is our hospital?s policy to screen for HIV and viral Hepatitis for all patients aged 18 and over and those with ongoing risk factors. [place] Inquiry Pt receiving controlled substance: No Vital Signs: 07/10/24 08:42 Temperature 98.6 F Temperature Source Oral Pulse Rate [Left Brachial] 91 H Respiratory Rate 19 Blood Pressure [Left Arm] 124/80 Blood Pressure Mean [Left Arm] 94 Blood Pressure Source [Left Arm] Automatic Cuff Blood Pressure Position [Left Arm] Sitting 02 Sat by Pulse Oximetry 99 Oxygen Delivery Method Room Air
[2024-07-10] MEDS: DEXAMETHASONE 4MG/ML 1ML VIAL 8 MG IM (09:09)
[2024-07-10] MEDS: KETOROLAC 60MG/2ML VIAL 60 MG IM (09:09)
[2024-07-10 09:32] VITALS: BP 124/80; PULSE 91; RESP 19; TEMP 37; O2SAT 99
== END 2024-07-10 09:36 | disposition home or self-care (01) ==
PROVIDERS: Emergency Provider Nurse Practitioner Family; PCP Nurse Practitioner Family
DX: M10.9 Gout, unspecified (principal)
CPT/HCPCS: 99213; G0381; J1100; J1885

== ENCOUNTER 2025-04-25 10:03 | Emergency (ER) | payer MEDICAID, SELFPAY ==
--- OUTSIDE RECORDS SUMMARY | 2025-04-25 10:18 | XMS_ITS | Continuity of Care Document ---
Author Organization [place] Address [address] [place] [address] Assessment Encounter Date Assessment Date Assessment LastModified by Organization Details LastModified Time 03/16/2025 03/16/2025 Bob Munoz presented with fatigue and difficulty losing weight. His medical history included low testosterone, hypothyroidism, and vitamin D deficiency. Recent labs confirmed low vitamin D (23.3), borderline low thyroid function, and low testosterone (191). Treatment plan included daily vitamin D supplementation, levothyroxine for hypothyroidism, and biweekly testosterone injections after PSA testing and urine drug screen. Patient was instructed to sign a controlled substance agreement and follow up in 2 weeks for his next injection, with testosterone levels to be rechecked after 3 months. [email or web address] Not available 03/16/2025 15:56:36 Plan of Treatment Reminders Order Date Submit Date Provider Last Modified By Organization Details Last Modified Time Details Appointments FOLLOW UP 30 2025 08:00A Anand Sanchez APRN Not available Not available Not available Lab drug screen, urine 2024 025 [email or web address] ([place]), [facility] [place], [address], 03/17/2025 18:07:58 PSA, total, serum or plasma 2024 025 [email or web address] ([place]), [address] [place], [address], 03/17/2025 18:07:59 Referral None recorded. Procedures None recorded. Surgeries None recorded. Imaging None recorded. Medication Orders levothyro xine 25 mcg tablet 2024 [facility], [address] [place] [address], [id number], 03/17/2025 10:47:55 ergocalci ferol (vitamin D2) 1,250 mcg (50,000 unit) capsule 2024 [facility], [address] [place] [address], [id number], 03/17/2025 10:47:55 testoster one cypionate 200 mg/mL intramusc ular oil 2024 [facility], [address] [place] [address], [id number], 03/16/2025 12:18:58 testoster one cypionate 200 mg/mL intramusc ular oil 2024 [email or web address] Not available 03/16/2025 12:20:32 Patient TargetsNo targets recorded. Patient InstructionsNo instructions recorded. Reason for Referral None Reported. Results Created Date Observation Date Name Description Value Unit Range Abnormal Flag Note LastModifiedBy Organization Detail LastModifiedTime 03/02/2003/03/2025 CMP14 +EGFR glucose 148 mg/dL 70-99 above high normal Not Available [facility] ([facility]) [address] [place], [address], 03/03/2025 13:08:23 03/02/20 25 03/03/2025 CMP14 +EGFR BUN 11 mg/dL 6-20 normal Not Available [facility] ([facility]) [address] [place], [address], 03/03/2025 13:08:23 03/02/20 25 03/03/2025 CMP14 +EGFR creatinine 1.13 mg/dL 0.76-1 .27 normal Not Available [facility] ([facility]) [address] [facility] [place], [address], 03/03/2025 13:08:23 03/02/20 25 03/03/2025 CMP14 +EGFR eGFR 87 mL/mi n/1.7 3 >59 normal Not Available [facility] ([facility]) [address] [facility], [place], [address], 03/03/2025 13:08:23 03/02/20 25 03/03/2025 CMP14 +EGFR BUN/creatini ne ratio 10 9-20 normal Not Available [facility] ([facility]) [address] [facility], [place], [address], 03/03/2025 13:08:23 03/02/20 25 03/03/2025 CMP14 +EGFR sodium 139 mmol/ L 134-14 4 normal Not Available [facility] ([facility]) [address] [place], [address], 03/03/2025 13:08:23 03/02/20 25 03/03/2025 CMP14 +EGFR potassium 4.6 mmol/ L 3.5-5. 2 normal Not Available [facility] ([facility]) [address] [facility], [place], [address], 03/03/2025 13:08:23 03/02/20 25 03/03/2025 CMP14 +EGFR chloride 102 mmol/ L 96-106 normal Not Available [facility] ([facility]) [address] [place], [address], 03/03/2025 13:08:23 03/02/20 25 03/03/2025 CMP14 +EGFR carbon dioxide, total 22 mmol/ L 20-29 normal Not Available [facility] ([facility]) [address] [place], [address], 03/03/2025 13:08:23 03/02/20 25 03/03/2025 CMP14 +EGFR calcium 9.0 mg/dL 8.7-10 .2 normal Not Available [facility] ([facility]) [address] [facility] [place], [address], 03/03/2025 13:08:23 03/02/20 25 03/03/2025 CMP14 +EGFR protein, total 6.9 g/dL 6.0-8. 5 normal Not Available [facility] ([facility]) [address] [place], [address], 03/03/2025 13:08:23 03/02/20 25 03/03/2025 CMP14 +EGFR albumin 4.1 g/dL 4.1-5. 1 normal Not Available [facility] ([facility]) [address] [facility] [place], [address], 03/03/2025 13:08:23 03/02/20 25 03/03/2025 CMP14 +EGFR globulin, total 2.8 g/dL 1.5-4. 5 Not Available [facility] ([facility]) [address] [facility] [place], [address], 03/03/2025 13:08:23 03/02/20 25 03/03/2025 CMP14 +EGFR bilirubin, total 0.3 mg/dL 0.0-1. 2 normal Not Available [facility] ([facility]) [address] [facility] [place], [address], 03/03/2025 13:08:23 03/02/20 25 03/03/2025 CMP14 +EGFR alkaline phosphatase 116 IU/L 47-123 normal Ple ase note refer ence inter ruperto phillip e Not Available [facility] ([facility]) [address] [facility] [place], [address], 03/03/2025 13:08:23 03/02/20 25 03/03/2025 CMP14 +EGFR AST (SGOT) 14 IU/L 0-40 normal Not Available [facility] ([facility]) [address] [facility], [place], [address], 03/03/2025 13:08:23 03/02/20 25 03/03/2025 CMP14 +EGFR ALT (SGPT) 18 IU/L 0-44 normal Not Available [facility] ([facility]) [address] [facility], [place], [address], 03/03/2025 13:08:23 03/02/20 25 03/03/2025 CBC WITH DIFFE RENTI AL/PL ATELE T WBC 7.4 x10e3 /uL 3.4-10 .8 normal Not Available [facility] ([facility]) [address] [facility] [place], [address], 03/03/2025 13:08:24 03/02/20 25 03/03/2025 CBC WITH DIFFE RENTI AL/PL ATELE T RBC 4.77 x10e6 /uL 4.14-5 .80 normal Not Available [facility] ([facility]) [address] [facility], [place], [address], 03/03/2025 13:08:24 03/02/20 25 03/03/2025 CBC WITH DIFFE RENTI AL/PL ATELE T hemoglobin 12.0 g/dL 13.0-1 7.7 below low normal Not Available [facility] ([facility]) [address] [place], [address], 03/03/2025 13:08:24 03/02/20 25 03/03/2025 CBC WITH DIFFE RENTI AL/PL ATELE T hematocrit 39.8 % 37.5-5 1.0 normal Not Available [facility] ([facility]) [address] [place], [address], 03/03/2025 13:08:24 03/02/20 25 03/03/2025 CBC WITH DIFFE RENTI AL/PL ATELE T MCV 83 fL 79-97 normal Not Available [facility] ([facility]) [address] [place], [address], 03/03/2025 13:08:24 03/02/20 25 03/03/2025 CBC WITH DIFFE RENTI AL/PL ATELE T MCH 25.2 pg 26.6-3 3.0 below low normal Not Available [facility] ([facility]) [address] [facility], [place], [address], 03/03/2025 13:08:24 03/02/20 25 03/03/2025 CBC WITH DIFFE RENTI AL/PL ATELE T MCHC 30.2 g/dL 31.5-3 5.7 below low normal Not Available [facility] ([facility]) [address] [facility], [place], [address], 03/03/2025 13:08:24 03/02/20 25 03/03/2025 CBC WITH DIFFE RENTI AL/PL ATELE T RDW 13.7 % 11.6-1 5.4 Not Available [facility] ([facility]) [address] [facility], [place], [address], 03/03/2025 13:08:24 03/02/20 25 03/03/2025 CBC WITH DIFFE RENTI AL/PL ATELE T platelets 252 x10e3 /uL 150-45 0 normal Not Available [facility] ([facility]) [address] [facility], [place], [address], 03/03/2025 13:08:24 03/02/20 25 03/03/2025 CBC WITH DIFFE RENTI AL/PL ATELE T neutrophils 60 % not estab. normal Not Available [facility] ([facility]) [address] [place], [address], 03/03/2025 13:08:24 03/02/20 25 03/03/2025 CBC WITH DIFFE RENTI AL/PL ATELE T lymphs 26 % not estab. normal Not Available [facility] ([facility]) [address] [place], [address], 03/03/2025 13:08:24 03/02/20 25 03/03/2025 CBC WITH DIFFE RENTI AL/PL ATELE T monocytes 7 % not estab. normal Not Available [facility] ([facility]) [address] [facility], [place], [address], 03/03/2025 13:08:24 03/02/20 25 03/03/2025 CBC WITH DIFFE RENTI AL/PL ATELE T eos 5 % not estab. normal Not Available [facility] ([facility]) [address] [place], [address], 03/03/2025 13:08:24 03/02/20 25 03/03/2025 CBC WITH DIFFE RENTI AL/PL ATELE T basos 1 % not estab. 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 0 normal Not Available [facility] ([facility]) [address] [place], [address], 03/03/2025 13:08:24 03/02/20 25 03/03/2025 CBC WITH DIFFE RENTI AL/PL ATELE T lymphs (absolute) 1.9 x10e3 /uL 0.7-3. 1 normal Not Available [facility] ([facility]) [address] [place], [address], 03/03/2025 13:08:24 03/02/20 25 03/03/2025 CBC WITH DIFFE RENTI AL/PL ATELE T monocytes(ab solute) 0.5 x10e3 /uL 0.1-0. 9 normal Not Available [facility] ([facility]) [address] [facility], [place], [address], 03/03/2025 13:08:24 03/02/20 25 03/03/2025 CBC WITH DIFFE RENTI AL/PL ATELE T eos (absolute) 0.4 x10e3 /uL 0.0-0. 4 normal Not Available [facility] ([facility]) [address] [facility], [place], [address], 03/03/2025 13:08:24 03/02/20 25 03/03/2025 CBC WITH DIFFE RENTI AL/PL ATELE T baso (absolute) 0.1 x10e3 /uL 0.0-0. 2 normal Not Available [facility] ([facility]) [address] [facility], [place], [address], 03/03/2025 13:08:24 03/02/20 25 03/03/2025 CBC WITH DIFFE RENTI AL/PL ATELE T immature granulocytes 1 % not estab. Not Available [facility] ([facility]) [address] [facility], [place], [address], 03/03/2025 13:08:24 03/02/20 25 03/03/2025 CBC WITH DIFFE RENTI AL/PL ATELE T immature grans (abs) 0.1 x10e3 /uL 0.0-0. 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 Not Available [facility] ([facility]) [address] [facility], [place], [address], 03/03/2025 13:08:24 03/02/20 25 03/03/2025 LIPID PANEL cholesterol, total 136 mg/dL 100-19 9 normal Not Available [facility] ([facility]) [address] [place], [address], 03/03/2025 13:08:24 03/02/20 25 03/03/2025 LIPID PANEL triglyceride s 210 mg/dL 0-149 above high normal Not Available [facility] ([facility]) [address] [place], [address], 03/03/2025 13:08:24 03/02/20 25 03/03/2025 LIPID PANEL HDL cholesterol 29 mg/dL >39 below low normal Not Available [facility] ([facility]) [address] [place], [address], 03/03/2025 13:08:24 03/02/20 25 03/03/2025 LIPID PANEL VLDL cholesterol kristina 35 mg/dL 5-40 Not Available [facility] ([facility]) [address] [place], [address], 03/03/2025 13:08:24 03/02/20 25 03/03/2025 LIPID PANEL LDL chol calc ([facility]) 72 mg/dL 0-99 Not Available [facility] ([facility]) [address] [place], [address], 03/03/2025 13:08:24 03/02/20 25 03/03/2025 LIPID PANEL LDL calc 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 normal Not Available [facility] ([facility]) [address] [place], [address], 03/03/2025 13:08:25 03/02/2003/03/2025 ALBUM IN/CR EATIN INE RATIO ,URIN E albumin, urine 8.5 ug/mL not estab. Not Available [facility] ([facility]) [address] [place], [address], 03/03/2025 13:08:25 03/02/2003/03/2025 ALBUM IN/CR EATIN INE RATIO ,URIN E alb/creat ratio 6 mg/g_ creat 0-29 Kat l: 0 - 29 Moder ately incre ased: 30 - 300 Sever oleg incre ased: >300 Not Available [facility] ([facility]) [address] [place], [address], 03/03/2025 13:08:25 03/02/2003/03/2025 TESTO STERO NE testosterone 191 NG/dL 264-91 6 below low normal Adult male refer ence inter ruperto is based on a popul ation of healt hy nonob manjula males (BMI <30) betwe en 19 and 39 years old. Joy catherine et.al . JCEM 2017, 102;1 161-1 173. PMID: 18297 103. Not Available [facility] ([facility]) [address] [place], [address], 03/03/2025 13:08:25 03/02/2003/03/2025 VITAM IN D, 25-HY DROXY vitamin D, 25-hydroxy 23.3 NG/mL 30.0-1 00.0 below low normal Vitam in D defic iency has been defin ed by the Insti tute of Medic ine and an Endoc rine Socie ty pract ice guide line as a level of serum 25-OH vitam in D less than 20 ng/mL (1,2) . The Endoc rine Socie ty went on to furth er defin e vitam in D insuf ficie ncy as a level betwe en 21 and 29 ng/mL (2). 1. IOM (Inst itute of Medic ine). 2010. Dieta ry refer ence ari es for calci um and D. Victorina mcgowan [place]: The [facility] . 2. Sulma javier [place], Scott zamorano [place], Bisch off-F errar i LERMA, et al. Evalu ation , treat ment, and preve ntion of vitam in D defic iency : an Endoc rine Socie ty clini kristina pract ice guide line. JCEM. 2010; 96(7) :1911 -30. Not Available [facility] ([facility]) [address] [place], [address], 03/03/2025 13:08:26 03/02/20 25 03/03/2025 TSH RFX ON ABNOR MAL TO FREE T4 TSH 5.350 uIU/m L 0.450- 4.500 above high normal Not Available [facility] ([facility]) [address] [place], [address], 03/03/2025 13:08:27 03/02/20 25 03/03/2025 TSH RFX ON ABNOR MAL TO FREE T4 T4,free (direct) 0.98 NG/dL 0.82-1 .77 normal Not Available [facility] ([facility]) [address] [place], [address], 03/03/2025 13:08:27 03/02/20 25 03/02/2025 HbA1c (hemo globi n A1c), blood HbA1c 6.3 Not Available [address], [place], [address], 03/02/2025 11:42:14 03/16/2003/16/2025 [id number] 0 7 DRUG- SCR drug screen comment: Commen t This bereket sis is perfo rmed by immun oassa y. Posit malcom findi ngs are uncon firme d bereket tical test resul ts; if resul ts do not suppo rt expec murray clini kristina findi ng, confi rmati on by an alter swapna metho dolog y is recom dedrick d. Patie nt metab olic varia bles, speci fic drug chemi stry, and speci men aden cteri stics can affec t test outco me. Techn ical consu ltati on is avail able at [facility] @[facility] or.c om, or call toll free [phone]. Not Available [facility] ([facility]) [address] [place], [address], 03/17/2025 18:07:58 03/16/2003/17/2025 [id number] 0 7 DRUG- SCR amphetamines , urine Negati ve NG/mL cutoff =1000 Amphe tamin e test inclu sixto Amphe tamin e and Metha mphet amine . Not Available [facility] ([facility]) [address] [place], [address], 03/17/2025 18:07:58 03/16/20 25 03/17/2025 [id number] 0 7 DRUG- SCR barbiturates Negati ve NG/mL cutoff =200 Not Available [facility] ([facility]) [address] [place], [address], 03/17/2025 18:07:58 03/16/20 25 03/17/2025 [id number] 0 7 DRUG- SCR benzodiazepi disha Negati ve NG/mL cutoff =300 Not Available [facility] ([facility]) [address] [place], [address], 03/17/2025 18:07:58 03/16/20 25 03/17/2025 [id number] 0 7 DRUG- SCR cannabinoid Positi ve NG/mL cutoff =50 abnormal Not Available [facility] ([facility]) [address] [place], [address], 03/17/2025 18:07:58 03/16/20 25 03/17/2025 [id number] 0 7 DRUG- SCR cocaine (metab.) Negati ve NG/mL cutoff =300 Not Available [facility] ([facility]) [address] [facility], [place], [address], 03/17/2025 18:07:58 03/16/20 25 03/17/2025 [id number] 0 7 DRUG- SCR opiates Negati ve NG/mL cutoff =300 Opiat e test inclu sixto Codei ne and Morph ine only. Not Available [facility] ([facility]) [address] [place], [address], 03/17/2025 18:07:58 03/16/20 25 03/17/2025 [id number] 0 7 DRUG- SCR phencyclidin e Negati ve NG/mL cutoff =25 Not Available [facility] ([facility]) [address] [facility], [place], [address], 03/17/2025 18:07:58 03/16/20 25 03/17/2025 PROST ATE-S PECIF IC AG prostate specific Ag 0.4 NG/mL 0.0-4. 0 normal Leonel ECLIA metho dolog y. Accor ding to the Ameri can Urolo gical Assoc iatio n, Serum PSA shoul d decre ase and remai n at undet ectab le level s after radic al prost atect yarely. The AUA defin es bioch emica l recur rence as an initi al PSA value 0.2 ng/mL or great er follo wed by a subse quent confi rmato ry PSA value 0.2 ng/mL or great er. Value s obtai bette with diffe rent assay metho ds or kits canno t be used inter phillip eably . Resul ts canno t be inter prete d as absol [place] evide nce of the prese nce or absen ce of yajaira gu se. Not Available [facility] ([facility]) [address] [facility], [place], [address], 03/17/2025 18:07:58 Result Notes None recorded. Problems Name Problem SNOMED Code Status Onset Date Resolution Date Notes Provider Name and Address Organization Details Recorded Time Hyperten sive disorder 62036938 Completed 201601/24/2017 Problem Code: I10; Problem Code Type: ICD-10; Not Available [facility] 22:37:50 Pain in right knee Completed 201602/23/2017 Problem Code: M25.561; Problem Code Type: ICD-10; Not Available [facility] 22:37:52 Benign essentia l hyperten artemio [id number] Completed 201609/20/2017 Problem Code: 401.1; Problem Code Type: ICD-9; Not Available [facility] 2 22:37:57 Knee pain Completed 201602/23/2017 Problem Code: 719.46; Problem Code Type: ICD-9; Not Available [facility] 22:37:59 Severe obesity [id number] 104 Completed 201609/20/2017 Problem Code: E66.01; Problem Code Type: ICD-10; Not Available [facility] 22:37:50 Generali zed anxiety disorder 46085023 Completed 201609/20/2017 Problem Code: F41.1; Problem Code Type: ICD-10; Not Available [facility] 22:37:50 Morbid obesity 421610983 Completed 201609/20/2017 Problem Code: 278.01; Problem Code Type: ICD-9; Not Available [facility] 22:37:57 Acute laryngop haryngit is 38777950 Completed 201709/20/2017 Problem Code: J06.0; Problem Code Type: ICD-10; Not Available [facility] 2 22:37:51 Cough [id number] Completed 201709/20/2017 Problem Code: R05; Problem Code Type: ICD-10; Not Available [facility] 2 22:37:52 Acute upper respirat ory infectio n of multiple sites Completed 201709/20/2017 Problem Code: 465.8; Problem Code Type: ICD-9; Not Available [facility] 2 22:37:58 Body mass index 40+ - severely obese 914395490 Completed 201706/06/2021 Problem Code: V85.43; Problem Code Type: ICD-9; Not Available [facility] 2 22:37:59 Body mass index 30+ - obesity 434904950 Completed 201708/09/2019 Problem Code: Z68.43; Problem Code Type: ICD-10; Not Available [facility] 22:38:00 Residual hemorrho idal skin tags 39112095 Completed 201708/09/2019 Problem Code: K64.4; Problem Code Type: ICD-10; Not Available [facility] 2 22:37:52 Heartbur n 45431943 Completed 201712/20/2017 Problem Code: R12; Problem Code Type: ICD-10; Not Available [facility] 22:37:53 Body mass index 30+ - obesity 989368133 Completed 201708/09/2019 Problem Code: Z68.43; Problem Code Type: ICD-10; Not Available [facility] 2 22:37:56 External hemorrho ids 85306221 Completed 201706/06/2021 Problem Code: 455.3; Problem Code Type: ICD-9; Kaelyn Sanchez APRN [address] [place] [address], [address] , [facility] [employer] 14:07:34 Body mass index 40+ - severely obese [id number] Completed 201706/06/2021 Problem Code: V85.43; Problem Code Type: ICD-9; Not Available [facility] 2 22:38:01 Allergic rhinitis caused by pollen 22313773 Completed 201704/12/2018 Problem Code: J30.1; Problem Code Type: ICD-10; Not Available [facility] 2 22:37:51 Body mass index 30+ - obesity 784887365 Completed 201708/09/2019 Problem Code: Z68.43; Problem Code Type: ICD-10; Not Available [facility] 22:37:56 Body mass index 40+ - severely obese 954659211 Completed 201706/06/2021 Problem Code: V85.43; Problem Code Type: ICD-9; Not Available [facility] 22:38:01 Acute frontal sinusiti s 43593671 Completed 201903/07/2020 Problem Code: J01.10; Problem Code Type: ICD-10; Not Available [facility] 22:37:50 Acute bronchit is 18105442 Completed 201903/07/2020 Problem Code: J20.9; Problem Code Type: ICD-10; ALEKS gonzalez [employer] 2 14:24:25 Wheezing 05415327 Completed 201905/04/2022 Problem Code: R06.2; Problem Code Type: ICD-10; ALEKS gonzalez [employer] 2 14:24:25 General examinat ion of patient Completed 201902/20/2021 ALKES gonzalez [employer] 2 14:24:25 Body mass index 30+ - obesity 543713780 Completed 201901/23/2021 Problem Code: Z68.43; Problem Code Type: ICD-10; Not Available [facility] 2 22:37:56 Allergic rhinitis 22284224 Active 2019 Problem Code: J30.9; Problem Code Type: ICD-10; Not Available [facility] 2 22:37:51 Umbilica l hernia 058887154 Completed 201907/15/2020 Problem Code: K42.9; Problem Code Type: ICD-10; Bia Santiago NP [address] [place], [address] , [employer] 4 14:40:56 Body mass index 30+ - obesity 628957416 Active 2019 Problem Code: Z68.43; Problem Code Type: ICD-10; Not Available [employer] 2 22:37:55 Acute bronchit is 05098733 Completed 202005/04/2022 Problem Code: J20.9; Problem Code Type: ICD-10; ALEKSMERRITT gonzalez, [employer] 2 14:24:25 Dizzines s and giddines s 974432550 Completed 202005/04/2022 Problem Code: R42; Problem Code Type: ICD-10; ALEKS gonzalez, [employer] 14:24:25 Vitamin D deficien cy 73013445 Active 2020 Problem Code: E55.9; Problem Code Type: ICD-10; Kaelyn Sanchez APRN [address] [place], [address] , [employer] 5 11:43:28 Tobacco dependen ce caused by chewing tobacco [id number] 452230 Active 2020 Problem Code: F17.220; Problem Code Type: ICD-10; Not Available [facility] 2 22:37:50 General examinat ion of patient Completed 202005/04/2022 ALEKSMERRITT gonzalez, [employer] 2 14:24:25 Body mass index 30+ - obesity 432073049 Completed 202002/20/2021 Problem Code: Z68.43; Problem Code Type: ICD-10; Not Available [employer] 2 22:37:56 Acute sinusiti s 37198872 Completed 202006/06/2021 Problem Code: J01.90; Problem Code Type: ICD-10; Kaelyn Sanchez APRN [address] [place], [address] , [employer] 5 14:07:29 COVID-19 491128021 Completed 202006/06/2021 Problem Code: U07.1; Problem Code Type: ICD-10; ALEKS gonzalez, [employer] 2 14:24:25 COVID-19 932969340 Completed 202006/06/2021 Problem Code: U07.1; Problem Code Type: ICD-10; ALEKS gonzalez, [employer] 14:24:25 Acute tonsilli tis caused by Streptoc occus 94267720424 777511 Completed 202007/20/2021 Problem Code: J03.00; Problem Code Type: ICD-10; Not Available [facility] 22:37:51 Influenz a caused by Influenz a A virus 564971839 Completed 202105/04/2022 ALEKS gonzalez, [employer] 14:24:25 COVID-19 386123106 Completed 202105/04/2022 Problem Code: U07.1; Problem Code Type: ICD-10; ALEKS gonzalez, [employer] 14:24:25 Acute sinusiti s 06227924 Completed 202105/04/2022 Problem Code: J01.90; Problem Code Type: ICD-10; Kaelyn Sancehz APRN [address] [place], [address] , [employer] 5 14:07:29 Myositis 78465636 Completed 202105/04/2022 Problem Code: M60.9; Problem Code Type: ICD-10; ALEKS gonzalez, [employer] 2 14:24:25 Dyspnea 629984933 Completed 202105/04/2022 Problem Code: R06.02; Problem Code Type: ICD-10; ALEKS gonzalez, [employer] 2 14:24:25 Finding of sensatio n of nose 646248631 Completed 202105/04/2022 Problem Code: R43.9; Problem Code Type: ICD-10; ALEKS gonzalez, [employer] 2 14:24:25 Exposure to SARS-CoV -2 Completed 202105/04/2022 Problem Code: Z20.822; Problem Code Type: ICD-10; ALEKS gonzalez, [employer] 2 14:24:25 Noninfec tious gastroen teritis 86430935 Completed 202105/04/2022 ALEKS gonzalez, [employer]. 2 14:24:25 Umbilica l hernia 692358731 Active 2023 Problem Code: K42.9; Problem Code Type: ICD-10; Bia Santiago NP [address] [place], [address] , [employer] 4 14:40:56 Type 2 diabetes mellitus without complica tion 356908592 Active 2023 Kaelyn Sanchez APRN [address] [place] [address], [address] [place] [address] , [employer] 5 12:09:41 Essentia l hyperten artemio 92854481 Active 2023 Kaelyn Sanchez APRN [address] [place], [address] , [employer] 5 11:42:00 Gastroes ophageal reflux disease without esophagi tis 339191308 Active 2024 Bia Santiago NP [address] [place], [address] , [employer] 5 14:14:09 Streptoc occal sore throat 64669963 Active 2024 Bia Santiago NP [address] [place] [address], [address] , [employer] 14:41:39 Sore throat 952690068 Active 2024 Bia Santiago NP [address] [place] [address], [address] , [employer] 14:41:40 Type 2 diabetes mellitus 23299146 Active 2024 Kaelyn Sanchez APRN [address] [place] [address], [address] , [employer] 14:14:00 Recurren t sinusiti s 417248006 Active 2024 Kaelyn Sanchez APRN [address] [place] [address], [address] , [employer] 14:18:29 Fatigue 65455818 Active 2024 Kaelyn Sanchez APRN [address] [place] [address], [address] , [employer] 11:49:34 Acquired hypothyr oidism 490049205 Active 2024 Kaelyn Sanchez APRN [address] [place] [address], [address] , [employer] 11:46:15 Male hypogona dism 67412754 Active 2024 Kaelyn Sanchez APRN [address] [place] [address], [address] , [employer] 11:46:25 Problem Notes None recorded. Procedures Surgical History Date Name Laterality Status Provider Name and Address Organization Details Recorded Time 5 Skin Tag Removal completed Kaelyn Sanchez APRN [address] [place] [address], [address], [employer] 07/13/2024 16:37:13 4 Cerumen Removal completed Kaelyn Sanchez APRN [address] [place] [address], [address], [employer] 07/15/2023 10:09:28 Imaging Results None recorded. Procedure Notes None recorded. Medical Equipment None Reported. Allergies Allergen ID Allergen Name Allergen Category Reaction Reaction Severity Criticality Documentation Date Start Date Code Code System Note Provider Name and Address Organization Details Recorded Time 81628 hydrochlo rothiazid e medicatio n other Not available low 02/05/2023 5487 RxNorm GOUT Kaelyn Daniel, FOOD SERVICES COORDINATOR [address] [place], [address], [facility] [employer]. 15:34:21 Medications Name Sig Start Date Stop Date Status Note LastModified by Organization Details LastModified Time losartan 50 mg tablet TAKE ONE TABLET BY MOUTH DAILY active Not Available Not Available No t Available metformin 500 mg tablet TAKE ONE TABLET BY MOUTH IN THE MORNING AND IN THE EVENING WITH A MEAL active Not Available Not Available No t Available promethazi ne-DM 6.25 mg-15 mg/5 mL oral syrup Take 1 teaspoon by mouth q 4 to 6 hr 09/20 completed Not Available Not Available Not Available atorvastat in 10 mg tablet take 1 tablet (10 mg) by oral route once daily at bedtime 05/04 completed not been taking Not Available Not Available Not Available azithromyc in 250 mg tablet TAKE 2 TABLETS BY MOUTH ON DAY 1, THEN TAKE 1 TABLET DAILY ON DAYS 2-5 07/23 completed Not Available Not Available Not Available metoprolol succinate ER 50 mg tablet,ext ended release 24 hr Take 1 tablet(s ) by mouth bid 07/31 completed Not Available Not Available Not Available citalopram 10 mg tablet TAKE ONE TABLET BY MOUTH AT BEDTIME 06/18 completed Not Available Not Available Not Available amoxicilli n 250 mg-potassi um clavulanat e 62.5 mg/5 mL oral suspension take 10 millilit ers by oral route every 8 hours for 10 days 01/26 completed Not Available Not Available Not Available fluconazol e 200 mg tablet TAKE 1 TABLET 1 TIME EACH DAY FOR 14 DAYS 11/21 completed Not Available Not Available Not Available famotidine 40 mg tablet TAKE 1 TABLET 2 TIMES EACH DAY FOR HEARTBUR N 11/21 completed Not Available Not Available Not Available amlodipine 5 mg tablet Take 1 tablet(s ) by mouth daily 12/05 completed Not Available Not Available Not Available allopurino l 100 mg tablet Take 1 tablet every day by oral route. 06/18 completed Not Available Not Available Not Available aspirin 81 mg tablet,del ayed release TAKE ONE TABLET BY MOUTH ONCE DAILY active Not Available Not Available No t Available ondansetro n 8 mg disintegra ting tablet PLACE 1 TABLET ON TOP OF THE TONGUE AND ALLOW TO DISSOLVE EVERY 8 HOURS NEEDED FOR NAUSEA AND VOMITING 05/04 completed Not Available Not Available Not Available levothyrox ine 25 mcg tablet TAKE 1 TABLET BY MOUTH EVERY DAY IN THE MORNING FOR thyroid active Not Available Not Available No t Available Kenalog 40 mg/mL suspension for injection Take 1 mL by injectio n route. 02/13 completed Not Available Not Available Not Available lancets Use to check glucose BID 09/14 completed Not Available Not Available Not Available famotidine 20 mg tablet TAKE ONE TABLET BY MOUTH TWICE DAILY NEEDED active Not Available Not Available No t Available benzonatat e 100 mg capsule TAKE 1 CAPSULE 3 TIMES EACH DAY NEEDED FOR COUGH 11/21 completed Not Available Not Available Not Available oseltamivi r 75 mg capsule TAKE ONE CAPSULE BY MOUTH TWICE DAILY FOR 5 DAYS FOR flu 04/20 completed Not Available Not Available Not Available metoprolol tartrate 50 mg tablet TAKE ONE TABLET BY MOUTH TWICE DAILY with meals 2024 active Not Available Not Available Not Avai lable indomethac in 50 mg capsule Take 1 capsule 3 times a day by oral route with meals for 5 days. 02/13 completed Not Available Not Available Not Available omeprazole 20 mg capsule,de layed release active Not Available Not Available Not Available hydrocorti sone 2.5 % topical cream APPLY A THIN LAYER TO THE AFFECTED AREA(S) BY TOPICAL ROUTE 2 TIMES PER DAY 05/18 completed Not Available Not Available Not Available allopurino l 300 mg tablet TAKE ONE TABLET BY MOUTH ONCE DAILY FOR GOUT 03/02 completed Not Available Not Available Not Available amoxicilli n 400 mg/5 mL oral suspension Take 7 mL by mouth every 12 hours for 10 days. discard any remainin g liquid 11/11 completed Not Available Not Available Not Available testostero ne cypionate 200 mg/mL intramuscu lar oil Inject 1 mL into muscel every 2 weeks active Not Available Not Available No t Available azithromyc in 200 mg/5 mL oral suspension TAKE 12.5 ML (2 AND 1/2 TEASPOON FUL) TODAY. THEN, TAKE 6.25 ML (1 and 1/4 TEASPOON FUL) 1 TIME EACH DAY FOR 4 DAYS 05/04 completed Not Available Not Available Not Available polyethyle ne glycol 3350 17 gram/dose oral powder mix 17 g with liquid and drink every day by oral route as needed, for constipa tion. active Not Available Not Available No t Available methylpred nisolone 4 mg tablets in a dose pack TAKE ACCORDIN G TO PACKAGE INSTRUCT IONS 11/21 completed Not Available Not Available Not Available Vitamin D2 1,250 mcg (50,000 unit) capsule TAKE 1 CAPSULE BY MOUTH EVERY WEEK active Not Available Not Available No t Available losartan 50 mg-hydroch lorothiazi de 12.5 mg tablet TAKE 1 TABLET 1 TIME EACH DAY 02/05 completed Not Available Not Available Not Available colchicine 0.6 mg tablet TAKE TWO TABLETS BY MOUTH EVERY DAY NEEDED FOR 3 DAYS FOR GOUT flare active Not Available Not Available No t Available Naprosyn 500 mg tablet Take 1 tablet(s ) by mouth bid 04/25 completed Not Available Not Available Not Available ondansetro n 4 mg disintegra ting tablet Place 1 tablet every 4-6 hours by translin gual route as needed. 09/14 completed Not Available Not Available Not Available fluticason e propionate 50 mcg/actuat ion nasal spray,susp ension [place] 1 spray into each nostril every day. active Not Available Not Available No t Available loratadine 10 mg tablet TAKE ONE TABLET BY MOUTH EVERY DAY FOR allergie s active Not Available Not Available No t Available amoxicilli n 875 mg-potassi um clavulanat e 125 mg tablet Take 1 tablet every 12 hours by oral route with meal(s) for 10 days, for Sinus. 09/15 completed Not Available Not Available Not Available Ventolin HFA 90 mcg/actuat ion aerosol inhaler INHALE ONE TO TWO puffs BY MOUTH EVERY 4 HOURS NEEDED active Not Available Not Available No t Available esomeprazo le magnesium 20 mg capsule,de layed release Take 1 capsule every day by oral route. 02/13 completed Not Available Not Available Not Available rosuvastat in 10 mg tablet TAKE ONE TABLET BY MOUTH EVERY DAY 01/14 completed Not Available Not Available Not Available Prilosec OTC 20 mg tablet,del ayed release Take 1 tablet BID x 7 days PO then take 1 tablet QD PO. 09/14 completed Not Available Not Available Not Available cefdinir 250 mg/5 mL oral suspension take 10 ML BY MOUTH EVERY DAY FOR 10 DAYS, FOR sinus 03/16 completed Not Available Not Available Not Available selenium sulfide 2.25 % shampoo 11/21 completed Not Available Not Available Not Available OneTouch Verio test strips USE TO TEST BLOOD SUGAR 2 TIMES EACH DAY active Not Available Not Available No t Available OneTouch Verio Flex Meter Use to check glucose active Not Available Not Available No t Available Anusol-HC 2.5 % topical cream with perineal applicator Apply thin film to affected area tid 02/04 completed Not Available Not Available Not Available Ozempic 0.25 mg or 0.5 mg (2 mg/1.5 mL) subcutaneo us pen injector Inject 0.25 mg every week by subcutan eous route, for Diabetes . 03/16 completed Not Available Not Available Not Available OneTouch Ultra Blue Test Strip USE TO TEST BLOOD SUGAR 2 TIMES EACH DAY 2021 active Not Available Not Available Not Avai lable OneTouch Delica Plus Lancet 33 gauge USE TO TEST BLOOD SUGAR 2 TIMES EACH DAY active Not Available Not Available No t Available OneTouch Delica Plus Lancet 30 gauge active Not Available Not Available Not Available Mounjaro 2.5 mg/0.5 mL subcutaneo us pen injector Inject 0.5 mL every week by subcutan eous route, for diabetic . 11/11 completed Not Available Not Available Not Available Astepro Allergy 205.5 mcg (0.15 %) nasal spray [place] 1 spray twice a day by intranas al route. 03/16 completed Not Available Not Available Not Available Ozempic 0.25 mg or 0.5 mg (2 mg/3 mL) subcutaneo us pen injector Inject 0.5 mg every week by subcutan eous route, for Diabetes . active Not Available Not Available No t Available Vitals Date Recorded Body height Body mass index (BMI) Body weight Body temperature Heart rate Oxygen saturation Oxygen saturation in Arterial blood by Pulse oximetry Systolic And Diastolic Provider Name and Address Organization Details Last Updated DateTime 187.96 cm 52.6 kg/m2 307364. 15 g 97 [degF] 85 /min 95 % 95 % 138/82 mm[Hg] ROSA WALDROP [employer] 11:31:47 Social History Question Answer Notes LastModified by Organizat ion Details LastModified Time Tobacco Smoking Status Former Smoker Mary gonzalez, [employer]. 01/20/2024 16:04:43 Do You Have An Advance Directive? No Information not available 05/04/2022 Is Your Home Air Conditioned? Yes Information not available 11/21/2022 Do You Wear A Helmet When Biking? No [email or web address] Information not available 06/11/2024 Are You Blind Or Do You Have Difficulty Seeing? No Information not available 05/04/2022 Are You A Caregiver? No [email or web address] Information not available 02/13/2023 In The 14 Days Before Symptom Onset, Have You Had Close Contact With A Laboratory-confir med COVID-19 While That Case Was Ill? No Information not available 05/04/2022 In The 14 Days Before Symptom Onset, Have You Had Close Contact With A Person Who Is Under Investigation For COVID-19 While That Person Was Ill? No [email or web address] Information not available 05/04/2022 Have You Been To An Area Known To Be High Risk For COVID-19? No [email or web address] Information not available 05/04/2022 Are You Deaf Or Do You Have Serious Difficulty Hearing? No [email or web address] Information not available 05/04/2022 What Type Of Diet Are You Following? REGULAR [email or web address] Information not available 06/11/2024 Who Is Your Employer? [employer] [email or web address] Information not available 01/15/2024 Have There Been Any Changes To Your Family Or Social Situation? No [email or web address] Information no t available 02/13/2023 When Did You Quit Smoking? 1-5yearssincel [email or web address] Information not available 01/28/2024 Are There Any Guns Present In Your Home? Yes [email or web address] Information not available 05/04/2022 Which Of Your Hands Is Dominant? Right Information not available 12/19/2022 Do You Have A Medical Power Of Heel Gouger? No [email or web address] Information not available 05/04/2022 What Was The Date Of Your Most Recent Tobacco Screening? 03/16/2025 Information not available 03/16/2025 What Is Your Current Pack Years? 10-19packyears Information not available 01/28/2024 Do You Have Any Pets? Yes [email or web address] Information not available 02/13/2023 What Is Your Relationship Status? Information not available 05/04/2022 Do You Use Your Seat Belt Or Car Seat Routinely? Yes Information not available 05/04/2022 Are You Sexually Active? Yes Information not available 06/11/2024 Do You Have Smoke And Carbon Monoxide Detectors In Your Home? Yes Information not available 11/21/2022 Are You Passively Exposed To Smoke? No Information no t available 11/21/2022 Are There Any Smokers In Your House? No Information not available 11/21/2022 Do You Participate In Social Media? Yes [email or web address] Information not available 06/11/2024 Do You Use Sunscreen Routinely? No [email or web address] Information not available 05/04/2022 Has Tobacco Cessation Counseling Been Provided? No [email or web address] Information not available 02/13/2023 Have You Recently Traveled Abroad? No Information not available 05/04/2022 Do You Have Difficulty Walking Or Climbing Stairs? No [email or web address] Information not available 05/04/2022 Are You Currently In School? No [email or web address] Information not available 05/04/2022 Do You Have Any Dietary Restrictions? No [email or web address] Information not available 06/11/2024 Sex: Male Functional Status Question Answer Note LastModified by Organizat ion Details LastModified Time Do you use any illicit or recreational drugs? No [email or web address] Information not available 02/13/2023 Do you or have you ever used any other forms of tobacco or nicotine? No [email or web address] Information not available 02/08/2024 What is your level of alcohol consumption? None [email or web address] Information not available 05/04/2022 Do you or have you ever used smokeless tobacco? Current snuff user Information not available 05/04/2022 Are you currently employed? Yes [email or web address] Information not available 02/13/2023 Do you have transportation difficulties? No [email or web address] Information not available 05/04/2022 Are you able to walk independently without assistance or assistive devices? YESWOREST [email or web address] Information not available 05/04/2022 Do you have difficulty doing errands alone? No [email or web address] Information not available 05/04/2022 Are you able to care for yourself independently? Yes [email or web address] Information not available 05/04/2022 Do you have difficulty dressing, bathing, grooming, or toileting? No [email or web address] Information not available 05/04/2022 Do you or have you ever used e-cigarettes or vape? Never used electronic cigarettes [email or web address] Information not available 02/13/2023 Mental Status Question Answer Note LastModified by Organizat ion Details LastModified Time Do you feel stressed (tense, restless, nervous, or anxious, or unable to sleep at night)? [id number] [email or web address] Information not available 06/11/2024 Do you have difficulty concentrating, remembering or making decisions? No [email or web address] Information no t available 05/04/2022 Family History Relationship Description Onset Age of this Age Resolved Age Notes LastModified by Organization Details LastModified Time Sister Family history of breast cancer [email or web address] Not available 11/2022 14:20:18 Mother Family history of Hypertension [email or web address] Not available 02/13/2023 14:20:27 Mother Family history of diabetes mellitus type 2 [email or web address] Not available 11/2022 14:21:09 Father Family history of alcoholism [email or web address] Not available 14:20:41 Paternal Grandmother Family history of Anxiety state Not available 11/2022 14:20:51 Maternal Grandmother Family history of breast cancer [email or web address] Not available 11/2022 14:20:22 Medical History Condition Response Emergency room visit since last appointm ent. N Obesity Y Acid Reflux (GERD) Y Allergies/Hayfever N Hospitalizations N Acne N Diabetes Y Hypertension Y Immunizations Vaccine Type Date Status Note Provider Nam e and Address Organization Details Recorded Time Tdap 5 completed Not Available [facility] 02/13/2022 23:17:26 Tdap 1 completed ALEKS CARDENAS null, [employer]. 05/04/2022 14:34:20 Td (adult), 2 Lf tetanus toxoid, preservative free, adsorbed 4 completed Quality Systems[employer] null, [employer] 05/04/2022 14:34:20 Hep B, adolescent or pediatric 3 completed ALEKS THERESA null, [employer] 05/04/2022 14:34:20 Hep B, adolescent or pediatric 2 completed ALEKS THERESA null, [employer] 05/04/2022 14:34:20 Influenza, split virus, trivalent, preservative 0 completed ALEKS THERESA null, [employer] 05/04/2022 14:34:20 MMR 2 completed ALEKS THERESA null, [employer] 05/04/2022 14:34:20 Hep B, adolescent or pediatric 2 completed ALEKS THERESA null, [employer] 05/04/2022 14:34:20 varicella 2 completed ALEKS THERESA null, [employer] 05/04/2022 14:34:20 Influenza, split virus, trivalent, preservative 9 completed ALEKS THERESA [facility], [facility] 05/04/2022 14:34:20 Past Encounters Encounter ID Performer Location Encounter Start Date Encounter Closed Date Diagnosis/Indication Diagnosis SNOMED-CT Code Diagnosis ICD10 Code Diagnosis IMO Codes Diagnosis [id number] [place] [address] 03/02/2025 11:13:12 03/02/2025 12:35:24 Type 2 diabetes mellitus without complication 716174748 E11.9 Increase Ozempic 0.5 mg, DM diet and exercise encouraged . No other med changes today. Essential hypertension 16811649 I10 DASH diet, exercise, continue weight loss efforts. Vitamin D deficiency 347 18977 E55.9 14417 Body mass index 40+ - severely obese 327528178 Z68.43 6466526446 Fatigue 71961719 R53.83 61402150 [id number] [place] [address] 03/16/2025 11:21:58 03/16/2025 12:45:34 Acquired hypothyroidism 866507341 E03.9 21029 Start Synthroid Male hypogonadism 200284 06 E29.1 73310608 Start biweekly testostero ne injections for 3 months, [place] reviewed, UDS and PSA obtained. 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 Vitamin D deficiency 347 28367 E55.9 05878 Start ergocal weekly for 3 months. Long-term current use of drug therapy 771388471 Z79.089 [id number] Health Concerns Section Related Observation LastModified by Organization Detai ls LastModified Time None Recorded Concern Status LastModified by Organization Details LastModified Time None Recorded Payers Encounter Date Sequence Insurance Name Policy Number Policy Gomez Covered Member ID Gomez Member ID Guarantor Name 03/16/2025 1 [facility] (MEDICAID REPLACEMENT - HMO) Bob Munoz [id number] Bob Munoz Notes Date Note Type Note Provider Name and Address Organization Details Recorded Time 5 text/html ROS as noted in the HPI Chief ComplaintFatigueHistory of Present IllnessJasalvador Munoz presents with fatigue and for lab review. He reports feeling very tired, stating I could go sleep right now. I feel tired. I'm so tired. The patient mentions difficulty losing weight despite his efforts, suggesting this may be related to his fatigue. Kaelyn Sanchez, JOSE [address] [place], [address], [facility] [employer] 03/16/2025 15:57:10
--- OUTSIDE RECORDS SUMMARY | 2025-04-25 10:18 | XMS_ITS | Continuity of Care Document ---
Author Organization [place] - [employer], [facility] Address [address] [place] [id number] Assessment No assessment recorded. Plan of Treatment Reminders Order Date Submit Date Provider Last Modified By Organization Details Last Modified Time Details Appointments FOLLOW UP 30 2025 08:00A M Steffany Sanchez APRN Not available Not available Not available Lab None recorded. Referral None recorded. Procedures None recorded. Surgeries None recorded. Imaging None recorded. Medication Orders testoster one cypionate 200 mg/mL intramusc ular oil 2024 025 [email or web address] [facility], [address] [place] [address], [address], 04/12/2025 15:19:29 Patient TargetsNo targets recorded. Patient InstructionsNo instructions recorded. Reason for Referral None Reported. Results Created Date Observation Date Name Description Value Unit Range Abnormal Flag Note LastModifiedBy Organization Detail LastModifiedTime 03/16/2003/16/2025 [id number] 0 7 DRUG- SCR drug screen comment: [...] consu ltati on is avail able at jennifer sun [email or web address], or call toll free [phone] 17. Not Available [facility] ([facility]) [address] [place], [address], 03/17/2025 18:07:58 03/16/20 25 03/17/2025 [id number] 0 7 DRUG- SCR amphetamines , urine Negati ve NG/mL cutoff =1000 Amphe tamin e test inclu sixto Amphe tamin e and Metha mphet amine . Not Available [facility] ([facility]) [address], [place], [address], 03/17/2025 18:07:58 03/16/20 25 03/17/2025 [id number] 0 7 DRUG- SCR barbiturates Negati ve NG/mL cutoff =200 Not Available [facility] ([facility]) [address] [place], [address], 03/17/2025 18:07:58 03/16/20 25 03/17/2025 [id number] 0 7 DRUG- SCR benzodiazepi disha Negati ve NG/mL cutoff =300 Not Available [facility] ([facility]) [address] [place], [address], 03/17/2025 18:07:58 03/16/20 25 03/17/2025 44007 0 7 DRUG- SCR cannabinoid Positi ve NG/mL cutoff =50 abnormal Not Available [facility] ([facility]) [address] [place], [address], 03/17/2025 18:07:58 03/16/20 25 03/17/2025 [id number] 0 7 DRUG- SCR cocaine (metab.) Negati ve NG/mL cutoff =300 Not Available [facility] ([facility]) [address] [place], [address], 03/17/2025 18:07:58 03/16/20 25 03/17/2025 72061 0 7 DRUG- SCR opiates Negati ve NG/mL cutoff =300 Opiat e test inclu sixto Codei ne and Morph ine only. Not Available [facility] ([facility]) [address], [place], [address], 03/17/2025 18:07:58 03/16/20 25 03/17/2025 [id number] 0 7 DRUG- SCR phencyclidin e Negati ve NG/mL cutoff =25 Not Available [facility] ([facility]) [address], [place], [address], 03/17/2025 18:07:58 03/16/2003/17/2025 PROST ATE-S PECIF IC AG prostate specific [...] t be inter prete d as absol miguel angel evide nce of the prese nce or absen ce of yajaira gu se. Not Available [facility] ([facility]) [address], [place], [address], 03/17/2025 18:07:58 Result Notes None recorded. Problems Name Problem SNOMED Code Status Onset Date Resolution Date Notes Provider Name and Address Organization Details Recorded Time Hyperten sive disorder 43215426 Completed 201601/24/2017 Problem Code: I10; Problem Code Type: ICD-10; Not Available [facility] 22:37:50 Pain in right knee Completed 201602/23/2017 Problem Code: M25.561; Problem Code Type: ICD-10; Not Available [facility] 22:37:52 Benign essentia l hyperten artemio 3781958 Completed 201609/20/2017 Problem Code: 401.1; Problem Code Type: ICD-9; Not Available [facility] 2 22:37:57 Knee pain Completed 201602/23/2017 Problem Code: 719.46; Problem Code Type: ICD-9; Not Available [facility] 2 22:37:59 Severe obesity [id number] 104 Completed 201609/20/2017 Problem Code: E66.01; Problem Code Type: ICD-10; Not Available [facility] 22:37:50 Generali zed anxiety disorder 66313035 Completed 201609/20/2017 Problem Code: F41.1; Problem Code Type: ICD-10; Not Available [facility] 2 22:37:50 Morbid obesity 916521010 Completed 201609/20/2017 Problem Code: 278.01; Problem Code Type: ICD-9; Not Available [facility] 22:37:57 Acute laryngop haryngit is 10843784 Completed 201709/20/2017 Problem Code: J06.0; Problem Code Type: ICD-10; Not Available [facility] 2 22:37:51 Cough 64811515 Completed 201709/20/2017 Problem Code: R05; Problem Code Type: ICD-10; Not Available [facility] 2 22:37:52 Acute upper respirat ory infectio n of multiple sites Completed 201709/20/2017 Problem Code: 465.8; Problem Code Type: ICD-9; Not Available [facility] 2 22:37:58 Body mass index 40+ - severely obese 834102643 Completed 201706/06/2021 Problem Code: V85.43; Problem Code Type: ICD-9; Not Available [facility] 2 22:37:59 Body mass index 30+ - obesity 420792574 Completed 201708/09/2019 Problem Code: Z68.43; Problem Code Type: ICD-10; Not Available [facility] 22:38:00 Residual hemorrho idal skin tags 29063506 Completed 201708/09/2019 Problem Code: K64.4; Problem Code Type: ICD-10; Not Available [facility] 2 22:37:52 Heartbur n 90071414 Completed 201712/20/2017 Problem Code: R12; Problem Code Type: ICD-10; Not Available [facility] 22:37:53 Body mass index 30+ - obesity 451845035 Completed 201708/09/2019 Problem Code: Z68.43; Problem Code Type: ICD-10; Not Available [facility] 2 22:37:56 External hemorrho ids 20119179 Completed 201706/06/2021 Problem Code: 455.3; Problem Code Type: ICD-9; Kaelyn Sanchez, JOSE [address] [place] [address], [phone] , [facility], [facility]. 5 14:07:34 Body mass index 40+ - severely obese 561798372 Completed 201706/06/2021 Problem Code: V85.43; Problem Code Type: ICD-9; Not Available [facility] 22:38:01 Allergic rhinitis caused by pollen 11087238 Completed 201704/12/2018 Problem Code: J30.1; Problem Code Type: ICD-10; Not Available [facility] 22:37:51 Body mass index 30+ - obesity 404748811 Completed 201708/09/2019 Problem Code: Z68.43; Problem Code Type: ICD-10; Not Available [facility] 22:37:56 Body mass index 40+ - severely obese 450706677 Completed 201706/06/2021 Problem Code: V85.43; Problem Code Type: ICD-9; Not Available [facility] 2 22:38:01 Acute frontal sinusiti s 03463453 Completed 201903/07/2020 Problem Code: J01.10; Problem Code Type: ICD-10; Not Available [facility] 2 22:37:50 Acute bronchit is 82788246 Completed 201903/07/2020 Problem Code: J20.9; Problem Code Type: ICD-10; ALEKS gonzalez, [employer] 2 14:24:25 Wheezing 10044227 Completed 201905/04/2022 Problem Code: R06.2; Problem Code Type: ICD-10; ALEKS gonzalez, [employer] 2 14:24:25 General examinat ion of patient Completed 201902/20/2021 ALEKS gonzalez, [employer] 2 14:24:25 Body mass index 30+ - obesity 094002892 Completed 201901/23/2021 Problem Code: Z68.43; Problem Code Type: ICD-10; Not Available [facility] 2 22:37:56 Allergic rhinitis 45726732 Active 2019 Problem Code: J30.9; Problem Code Type: ICD-10; Not Available [facility] 2 22:37:51 Umbilica l hernia 126665330 Completed 201907/15/2020 Problem Code: K42.9; Problem Code Type: ICD-10; Bia Santiago, JANET [address] [place] [address], [address] , [employer] 4 14:40:56 Body mass index 30+ - obesity 178473225 Active 2019 Problem Code: Z68.43; Problem Code Type: ICD-10; Not Available [facility] 2 22:37:55 Acute bronchit is 98045311 Completed 202005/04/2022 Problem Code: J20.9; Problem Code Type: ICD-10; ALEKS gonzalez, [employer] 2 14:24:25 Dizzines s and giddines s 473556762 Completed 202005/04/2022 Problem Code: R42; Problem Code Type: ICD-10; ALEKS GROSSNER carlos, [employer] 2 14:24:25 Vitamin D deficien cy 96404000 Active 2020 Problem Code: E55.9; Problem Code Type: ICD-10; Kaelyn Sanchez APRN [address] [place], [address] , [employer] 5 11:43:28 Tobacco dependen ce caused by chewing tobacco 48134983834 910181 Active 2020 Problem Code: F17.220; Problem Code Type: ICD-10; Not Available [facility] 2 22:37:50 General examinat ion of patient Completed 202005/04/2022 ALEKS THERESA carlos, [employer] 2 14:24:25 Body mass index 30+ - obesity 626886160 Completed 202002/20/2021 Problem Code: Z68.43; Problem Code Type: ICD-10; Not Available [facility] 22:37:56 Acute sinusiti s 99155956 Completed 202006/06/2021 Problem Code: J01.90; Problem Code Type: ICD-10; Kaelyn Sanchez APRN [address] [place], [address] , [employer] 5 14:07:29 COVID-19 735837541 Completed 202006/06/2021 Problem Code: U07.1; Problem Code Type: ICD-10; ALEKS THERESA carlos, [employer] 2 14:24:25 COVID-19 795058498 Completed 202006/06/2021 Problem Code: U07.1; Problem Code Type: ICD-10; ALEKSMERRITT gonzalez [employer] 14:24:25 Acute tonsilli tis caused by Streptoc occus 75390097576 047561 Completed 202007/20/2021 Problem Code: J03.00; Problem Code Type: ICD-10; Not Available [facility] 22:37:51 Influenz a caused by Influenz a A virus 393509419 Completed 202105/04/2022 ALEKS GROSSNER [employer] 14:24:25 COVID-19 562724946 Completed 202105/04/2022 Problem Code: U07.1; Problem Code Type: ICD-10; ALEKS CARDENAS [employer] 14:24:25 Acute sinusiti s 81908181 Completed 202105/04/2022 Problem Code: J01.90; Problem Code Type: ICD-10; aKelyn Sanchez, JOSE [address] [place] [address], [address] [facility] [employer] 14:07:29 Myositis 85578847 Completed 202105/04/2022 Problem Code: M60.9; Problem Code Type: ICD-10; ALEKS THERESA [employer] 14:24:25 Dyspnea 955700924 Completed 202105/04/2022 Problem Code: R06.02; Problem Code Type: ICD-10; ALEKS GROSSNER [employer] 14:24:25 Finding of sensatio n of nose 340423438 Completed 202105/04/2022 Problem Code: R43.9; Problem Code Type: ICD-10; ALEKSMERRITT GROSSNER [employer] 14:24:25 Exposure to SARS-CoV -2 Completed 202105/04/2022 Problem Code: Z20.822; Problem Code Type: ICD-10; [employer] 2 14:24:25 Noninfec tious gastroen teritis 77020771 Completed 202105/04/2022 ALEKS CARDENAS carlos, [employer] 2 14:24:25 Umbilica l hernia 723241167 Active 2023 Problem Code: K42.9; Problem Code Type: ICD-10; Bia Santiago NP [address] [place] [address], [address] , [employer] 4 14:40:56 Type 2 diabetes mellitus without complica tion 602806587 Active 2023 Kaelyn Sanchez APRN [address] [place] [address], [address] [place] [address] , [employer] 5 12:09:41 Essentia l hyperten artemio 68994128 Active 2023 Kaelyn Sanchez APRN [address] [place] [address], [address] , [employer] 5 11:42:00 Gastroes ophageal reflux disease without esophagi tis 103013358 Active 2024 Bia Santiago NP [address] [place] [address], [address] , [employer] 5 14:14:09 Streptoc occal sore throat 81985837 Active 2024 Bia Santiago NP [address] [place] [address], [address] , [employer] 5 14:41:39 Sore throat 108899542 Active 2024 Bia Santiago NP [address] [place] [address], [address] , [employer] 5 14:41:40 Type 2 diabetes mellitus 12946220 Active 2024 Kaelyn Sanchez APRN [address] [place] [address], [address] , [employer] 5 14:14:00 Recurren t sinusiti s 158595575 Active 2024 Kaelyn Sanchez APRN [address] [place] [address], [address] [place] [address] , [employer] 5 14:18:29 Fatigue 81368803 Active 2024 Kaelyn Sanchez APRN [address] [place] [address], [address] [place] [address] , [employer] 5 11:49:34 Acquired hypothyr oidism 432515552 Active 2024 Kaelyn Sanchez APRN [address] [place] [address], [address] [place] [address] , [employer] 5 11:46:15 Male hypogona dism 20099396 Active 2024 Kaelyn Sanchez APRN [address] [place] [address], [address] [place] [address] , [employer] 5 11:46:25 Problem Notes None recorded. Procedures Surgical History Date Name Laterality Status Provider Name and Address Organization Details Recorded Time 5 Skin Tag Removal completed Kaelyn Sanchez APRN [address] [place] [address], [address] [place] [address], [employer] 07/13/2024 16:37:13 4 Cerumen Removal completed Kaelyn Sanchez APRN [address] [place] [address], [address] [place] [address], [employer] 07/15/2023 10:09:28 Imaging Results None recorded. Procedure Notes None recorded. Medical Equipment None Reported. Allergies Allergen ID Allergen Name Allergen Category Reaction Reaction Severity Criticality Documentation Date Start Date Code Code System Note Provider Name and Address Organization Details Recorded Time 10324 hydrochlo rothiazid e medicatio n other Not available low 02/05/2023 5487 RxNorm GOUT Kaelyn Sanchez APRN [address] [place] [address], [phone], [employer] 3 15:34:21 Medications Name Sig Start Date Stop [...] propionate 50 mcg/actuat ion nasal spray,susp ension Ey[place] 1 spray into each nostril every day. [...] Allergy 205.5 mcg (0.15 %) nasal spray Eyota 1 spray twice a day by intranas al route. 03/16 completed Not Available Not Available Not Available Ozempic 0.25 mg or 0.5 mg (2 mg/3 mL) subcutaneo us pen injector Inject 0.5 mg every week by subcutan eous route, for Diabetes . active Not Available Not Available No t Available Vitals None Recorded Social History Question Answer Notes LastModified by Organizat ion Details LastModified Time Tobacco Smoking Status Former Smoker Mary gonzalez, [facility] [employer] 01/20/2024 16:04:43 Do You Have An Advance Directive? No Information not available 05/04/2022 Is Your Home Air Conditioned? Yes Information not available 11/21/2022 Do You Wear A Helmet When Biking? No [email or web address] Information not available 06/11/2024 Are You Blind Or Do You Have Difficulty Seeing? No [email or web address] Information not available 05/04/2022 Are You A Caregiver? No [email or web address] Information not available 02/13/2023 In The 14 Days Before Symptom Onset, Have You Had Close Contact With A Laboratory-confir med COVID-19 While That Case Was Ill? No [email or web address] Information not available 05/04/2022 In The 14 Days Before Symptom Onset, Have You Had Close Contact With A Person Who Is Under Investigation For COVID-19 While That Person Was Ill? No [email or web address] Information not available 05/04/2022 Have You Been To An Area Known To Be High Risk For COVID-19? No [email or web address] Information not available 05/04/2022 Are You Deaf Or Do You Have Serious Difficulty Hearing? No [email or web address] Information not available 05/04/2022 What Type Of Diet Are You Following? REGULAR [email or web address] Information not available 06/11/2024 Who Is Your Employer? [employer] [email or web address] Information not available 01/15/2024 Have There Been Any Changes To Your Family Or Social Situation? No [email or web address] Information no t available 02/13/2023 When Did You Quit Smoking? 1-5yearssincel ashlee Information not available 01/28/2024 Are There Any Guns Present In Your Home? Yes [email or web address] Information not available 05/04/2022 Which Of Your Hands Is Dominant? Right Information not available 12/19/2022 Do You Have A Medical Power Of Presales Senior Specialist? No [email or web address] Information not available 05/04/2022 What Was The Date Of Your Most Recent Tobacco Screening? 03/16/2025 Information not available 03/16/2025 What Is Your Current Pack Years? 10-19packyears Information not available 01/28/2024 Do You Have Any Pets? Yes [email or web address] Information not available 02/13/2023 What Is Your Relationship Status? [email or web address] Information not available 05/04/2022 Do You Use Your Seat Belt Or Car Seat Routinely? Yes [email or web address] Information not available 05/04/2022 Are You Sexually Active? Yes [email or web address] Information not available 06/11/2024 Do You Have Smoke And Carbon Monoxide Detectors In Your Home? Yes Information not available 11/21/2022 Are You Passively Exposed To Smoke? No Information no t available 11/21/2022 Are There Any Smokers In Your House? No Information not available 11/21/2022 Do You Participate In Social Media? Yes [email or web address] Information not available 06/11/2024 Do You Use Sunscreen Routinely? No [email or web address] Information not available 05/04/2022 Has Tobacco Cessation Counseling Been Provided? No [email or web address] Information not available 02/13/2023 Have You Recently Traveled Abroad? No [email or web address] Information not available 05/04/2022 Do You Have Difficulty Walking Or Climbing Stairs? No Information not available 05/04/2022 Are You Currently In School? No [email or web address] Information not available 05/04/2022 Do You Have Any Dietary Restrictions? No [email or web address] Information not available 06/11/2024 Sex: Male Functional Status Question Answer Note LastModified by Organizat ion Details LastModified Time Do you use any illicit or recreational drugs? No Information not available 02/13/2023 Do you or have you ever used any other forms of tobacco or nicotine? No [email or web address] Information not available 02/08/2024 What is your level of alcohol consumption? None [email or web address] Information not available 05/04/2022 Do you or have you ever used smokeless tobacco? Current snuff user [email or web address] Information not available 05/04/2022 Are you currently employed? Yes [email or web address] Information not available 02/13/2023 Do you have transportation difficulties? No Information not available 05/04/2022 Are you able to walk independently without assistance or assistive devices? YESWOREST [email or web address] Information not available 05/04/2022 Do you have difficulty doing errands alone? No [email or web address] Information not available 05/04/2022 Are you able to care for yourself independently? Yes [email or web address] Information not available 05/04/2022 Do you have difficulty dressing, bathing, grooming, or toileting? No [email or web address] Information not available 05/04/2022 Do you or have you ever used e-cigarettes or vape? Never used electronic cigarettes [email or web address] Information not available 02/13/2023 Mental Status Question Answer Note LastModified by Organizat ion Details LastModified Time Do you feel stressed (tense, restless, nervous, or anxious, or unable to sleep at night)? [id number] Information not available 06/11/2024 Do you have difficulty concentrating, remembering or making decisions? No [email or web address] Information no t available 05/04/2022 Family History Relationship Description Onset Age of this Age Resolved Age Notes LastModified by Organization Details LastModified Time Sister Family history of breast cancer [email or web address] Not available 11/2022 14:20:18 Mother Family history of Hypertension [email or web address] Not available 02/13/2023 14:20:27 Mother Family history of diabetes mellitus type 2 Not available 11/2022 14:21:09 Father Family history of alcoholism [email or web address] Not available 14:20:41 Paternal Grandmother Family history of Anxiety state [email or web address] Not available 11/2022 14:20:51 Maternal Grandmother Family history of breast cancer [email or web address] Not available 11/2022 14:20:22 Medical History Condition Response Hospitalizations N Diabetes Y Allergies/Hayfever N Acid Reflux (GERD) Y Obesity Y Emergency room visit since last appointm ent. N Hypertension Y Acne N Immunizations Vaccine Type Date Status Note Provider Nam e and Address Organization Details Recorded Time Tdap 5 completed Not Available [employer] 02/13/2022 23:17:26 Tdap 1 completed ALEKS CARDENAS [email or web address] 05/04/2022 14:34:20 Td (adult), 2 Lf tetanus toxoid, preservative free, adsorbed 4 completed ALEKS CARDENAS null, [employer] 05/04/2022 14:34:20 Hep B, adolescent or pediatric 3 completed ALEKS CARDENAS null, [employer] 05/04/2022 14:34:20 Hep B, adolescent or pediatric 2 completed ALEKS CARDENAS null, [employer] 05/04/2022 14:34:20 Influenza, split virus, trivalent, preservative 0 completed ALEKS CARDENAS null, [employer] 05/04/2022 14:34:20 MMR 2 completed ALEKS CARDENAS null, [employer] 05/04/2022 14:34:20 Hep B, adolescent or pediatric 2 completed ALEKS CARDENAS null, [employer] 05/04/2022 14:34:20 varicella 2 completed ALEKS THERESA null, [employer] 05/04/2022 14:34:20 Influenza, split virus, trivalent, preservative 9 completed ALEKS THERESA [email or web address] 05/04/2022 14:34:20 Past Encounters Encounter ID Performer Location Encounter Start Date Encounter Closed Date Diagnosis/Indication Diagnosis SNOMED-CT Code Diagnosis ICD10 Code Diagnosis IMO Codes Diagnosis Note [id number] Kaelyn [address] [address] 03/16/2025 11:21:58 03/16/2025 12:45:34 Acquired hypothyroidism 581990037 E03.9 31122 Start Synthroid Male hypogonadism 883291 06 E29.1 80978235 Start biweekly testostero ne injections for 3 months, mich reviewed, UDS and PSA obtained. [employer] controlled substance agreement obtained. Vitamin D deficiency 347 40362 E55.9 57117 Start ergocal weekly for 3 months. Long-term current use of drug therapy 938703018 Z79.576 [id number] Kaelyn [address] [place] [address] 03/29/2025 09:42:14 03/29/2025 10:11:54 Male hypogonadism 00367500 E29.1 94519748 Start biweekly testostero ne injections for 3 months, [place] reviewed, UDS and PSA obtained. [employer] controlled substance agreement obtained. [id number] Kaelyn Daniel [employer] OharaLior [address] [address] 04/12/2025 13:28:29 04/12/2025 14:00:16 Male hypogonadism 53142077 E29.1 92005483 Start biweekly testostero ne injections for 3 months, [place] reviewed, UDS and PSA obtained. [place] controlled substance agreement obtained. Health Concerns Section Related Observation LastModified by Organization Detai ls LastModified Time None Recorded Concern Status LastModified by Organization Details LastModified Time None Recorded Payers Encounter Date Sequence Insurance Name Policy Number Policy Gomez Covered Member ID Gomez Member ID Guarantor Name 04/12/2025 1 [facility] (MEDICAID REPLACEMENT - HMO) Bob Munoz [id number] Bob Munoz
--- OUTSIDE RECORDS SUMMARY | 2025-04-25 10:19 | XMS_ITS | Continuity of Care Document ---
Author Organization [place] [facility], [employer] Formerly [facility] Address [address] [place] [address] Assessment No assessment recorded. Plan of Treatment Reminders Order Date Submit Date Provider Last Modified By Organization Details Last Modified Time Details Appointments FOLLOW UP 2025 08:00A M Steffany Sanchez APRN Not available Not available Not available Lab None recorded. Referral None recorded. Procedures None recorded. Surgeries None recorded. Imaging None recorded. Medication Orders testoster one cypionate 200 mg/mL intramusc ular oil 2024 025 [email or web address] Not available 03/29/2025 11:05:35 Patient TargetsNo targets recorded. Patient InstructionsNo instructions recorded. Reason for Referral None Reported. Results Created Date Observation Date Name Description Value Unit Range Abnormal Flag Note LastModifiedBy Organization Detail LastModifiedTime 03/02/2003/03/2025 CMP14 +EGFR glucose 148 mg/dL 70-99 above high normal Not Available [facility] ([facility]) [address] [facility], [place], [address], 03/03/2025 13:08:23 03/02/20 25 03/03/2025 CMP14 +EGFR BUN 11 mg/dL 6-20 normal Not Available [facility] ([facility]) [address] [facility], [place], [address], 03/03/2025 13:08:23 03/02/20 25 03/03/2025 CMP14 +EGFR creatinine 1.13 mg/dL 0.76-1 .27 normal Not Available [facility] ([facility]) [address] [facility], [place], [address], 03/03/2025 13:08:23 03/02/20 25 03/03/2025 CMP14 +EGFR eGFR 87 mL/mi n/1.7 3 >59 normal Not Available [facility] ([facility]) [address] [facility], [place], [address], 03/03/2025 13:08:23 03/02/20 25 03/03/2025 CMP14 +EGFR BUN/creatini ne ratio 10 9-20 normal Not Available [facility] ([facility]) [address] [facility], [place], [address], 03/03/2025 13:08:23 03/02/20 25 03/03/2025 CMP14 +EGFR sodium 139 mmol/ L 134-14 4 normal Not Available [facility] ([facility]) [address] [facility], [place], [address], 03/03/2025 13:08:23 03/02/20 25 03/03/2025 CMP14 +EGFR potassium 4.6 mmol/ L 3.5-5. 2 normal Not Available [facility] ([facility]) [address] [facility], [place], [address], 03/03/2025 13:08:23 03/02/20 25 03/03/2025 CMP14 +EGFR chloride 102 mmol/ L 96-106 normal Not Available [facility] ([facility]) [address] [facility], [place], [address], 03/03/2025 13:08:23 03/02/20 25 03/03/2025 CMP14 +EGFR carbon dioxide, total 22 mmol/ L 20-29 normal Not Available [facility] ([facility]) [address] [facility], [place], [address], 03/03/2025 13:08:23 03/02/20 25 03/03/2025 CMP14 +EGFR calcium 9.0 mg/dL 8.7-10 .2 normal Not Available [facility] ([facility]) [address] [facility], [place], [address], 03/03/2025 13:08:23 03/02/20 25 03/03/2025 CMP14 +EGFR protein, total 6.9 g/dL 6.0-8. 5 normal Not Available [facility] ([facility]) [address] [facility], [place], [address], 03/03/2025 13:08:23 03/02/20 25 03/03/2025 CMP14 +EGFR albumin 4.1 g/dL 4.1-5. 1 normal Not Available [facility] ([facility]) [address] [facility], [place], [address], 03/03/2025 13:08:23 03/02/20 25 03/03/2025 CMP14 +EGFR globulin, total 2.8 g/dL 1.5-4. 5 Not Available [facility] ([facility]) [address] [place], [address], 03/03/2025 13:08:23 03/02/20 25 03/03/2025 CMP14 +EGFR bilirubin, total 0.3 mg/dL 0.0-1. 2 normal Not Available [facility] ([facility]) [address] [place], [address], 03/03/2025 13:08:23 03/02/20 25 03/03/2025 CMP14 +EGFR alkaline phosphatase 116 IU/L 47-123 normal Ple ase note refer ence jillian phillip e Not Available [facility] ([facility]) [address] [place], [address], 03/03/2025 13:08:23 03/02/20 25 03/03/2025 CMP14 +EGFR AST (SGOT) 14 IU/L 0-40 normal Not Available [facility] ([facility]) [address] [facility], [place], [address], 03/03/2025 13:08:23 03/02/20 25 03/03/2025 CMP14 +EGFR ALT (SGPT) 18 IU/L 0-44 normal Not Available [facility] ([facility]) [address] [facility], [place], [address], 03/03/2025 13:08:23 03/02/20 25 03/03/2025 CBC WITH DIFFE RENTI AL/PL ATELE T WBC 7.4 x10e3 /uL 3.4-10 .8 normal Not Available [facility] ([facility]) [address] [facility], [place], [address], 03/03/2025 13:08:24 03/02/20 25 03/03/2025 CBC WITH DIFFE RENTI AL/PL ATELE T RBC 4.77 x10e6 /uL 4.14-5 .80 normal Not Available [facility] ([facility]) [address] [place], [address], 03/03/2025 13:08:24 03/02/20 25 03/03/2025 CBC WITH DIFFE RENTI AL/PL ATELE T hemoglobin 12.0 g/dL 13.0-1 7.7 below low normal Not Available [facility] ([facility]) [address] [place], [address], 03/03/2025 13:08:24 03/02/20 25 03/03/2025 CBC WITH DIFFE RENTI AL/PL ATELE T hematocrit 39.8 % 37.5-5 1.0 normal Not Available [facility] ([facility]) [address] [place], [address], 03/03/2025 13:08:24 03/02/20 25 03/03/2025 CBC WITH DIFFE RENTI AL/PL ATELE T MCV 83 fL 79-97 normal Not Available [facility] ([facility]) [address] [facility], [place], [address], 03/03/2025 13:08:24 03/02/20 25 03/03/2025 CBC WITH DIFFE RENTI AL/PL ATELE T MCH 25.2 pg 26.6-3 3.0 below low normal Not Available [facility] ([facility]) [address] [facility], [place], [address], 03/03/2025 13:08:24 03/02/20 25 03/03/2025 CBC WITH DIFFE RENTI AL/PL ATELE T MCHC 30.2 g/dL 31.5-3 5.7 below low normal Not Available [facility] ([facility]) [address] [facility], [place], [address], 03/03/2025 13:08:24 03/02/20 25 03/03/2025 CBC WITH DIFFE RENTI AL/PL ATELE T RDW 13.7 % 11.6-1 5.4 Not Available [facility] ([facility]) [address] [place], [address], 03/03/2025 13:08:24 03/02/20 25 03/03/2025 CBC WITH DIFFE RENTI AL/PL ATELE T platelets 252 x10e3 /uL 150-45 0 normal Not Available [facility] ([facility]) [address] [facility], [place], [address], 03/03/2025 13:08:24 03/02/20 25 03/03/2025 CBC WITH DIFFE RENTI AL/PL ATELE T neutrophils 60 % not estab. normal Not Available [facility] ([facility]) [address] [facility], [place], [address], 03/03/2025 13:08:24 03/02/20 25 03/03/2025 CBC WITH DIFFE RENTI AL/PL ATELE T lymphs 26 % not estab. normal Not Available [facility] ([facility]) [address] [place], [address], 03/03/2025 13:08:24 03/02/20 25 03/03/2025 CBC WITH DIFFE RENTI AL/PL ATELE T monocytes 7 % not estab. normal Not Available [facility] ([facility]) [address] [facility], [place], [address], 03/03/2025 13:08:24 03/02/20 25 03/03/2025 CBC WITH DIFFE RENTI AL/PL ATELE T eos 5 % not estab. normal Not Available [facility] ([facility]) [address] [place], [address], 03/03/2025 13:08:24 03/02/20 25 03/03/2025 CBC WITH DIFFE RENTI AL/PL ATELE T basos 1 % not estab. normal Not Available [facility] ([facility]) [address] [facility], [place], [address], 03/03/2025 13:08:24 03/02/20 25 03/03/2025 CBC WITH DIFFE RENTI AL/PL ATELE T immature cells [employer] Not Available [facility] ([facility]) [address] [place], [address], 03/03/2025 13:08:24 03/02/20 25 03/03/2025 CBC WITH DIFFE RENTI AL/PL ATELE T neutrophils (absolute) 4.5 x10e3 /uL 1.4-7. 0 normal Not Available [facility] ([facility]) [address] [place], [address], 03/03/2025 13:08:24 03/02/20 25 03/03/2025 CBC WITH DIFFE RENTI AL/PL ATELE T lymphs (absolute) 1.9 x10e3 /uL 0.7-3. 1 normal Not Available [facility] ([facility]) [address] [place], [address], 03/03/2025 13:08:24 03/02/20 25 03/03/2025 CBC WITH DIFFE RENTI AL/PL ATELE T monocytes(ab solute) 0.5 x10e3 /uL 0.1-0. 9 normal Not Available [facility] ([facility]) [address] [facility], [place], [address], 03/03/2025 13:08:24 03/02/20 25 03/03/2025 CBC WITH DIFFE RENTI AL/PL ATELE T eos (absolute) 0.4 x10e3 /uL 0.0-0. 4 normal Not Available [facility] ([facility]) [address] [facility], [place], [address], 03/03/2025 13:08:24 03/02/20 25 03/03/2025 CBC WITH DIFFE RENTI AL/PL ATELE T baso (absolute) 0.1 x10e3 /uL 0.0-0. 2 normal Not Available [facility] ([facility]) [address] [facility], [place], [address], 03/03/2025 13:08:24 03/02/20 25 03/03/2025 CBC WITH DIFFE RENTI AL/PL ATELE T immature granulocytes 1 % not estab. Not Available [facility] ([facility]) [address] [facility], [place], [address], 03/03/2025 13:08:24 03/02/20 25 03/03/2025 CBC WITH DIFFE RENTI AL/PL ATELE T immature grans (abs) 0.1 x10e3 /uL 0.0-0. 1 Not Available [facility] ([facility]) [address] [place], [address], 03/03/2025 13:08:24 03/02/20 25 03/03/2025 CBC WITH DIFFE RENTI AL/PL ATELE T NRBC [employer] Not Available [facility] ([facility]) [address] [facility], [place], [address], 03/03/2025 13:08:24 03/02/20 25 03/03/2025 CBC WITH DIFFE CHANTALE AL/PL ATELE T hematology comments: [employer] Not Available [facility] ([facility]) [address] [facility], [place], [address], 03/03/2025 13:08:24 03/02/20 25 03/03/2025 LIPID PANEL cholesterol, total 136 mg/dL 100-19 9 normal Not Available [facility] ([facility]) [address] [place], [address], 03/03/2025 13:08:24 03/02/20 25 03/03/2025 LIPID PANEL triglyceride s 210 mg/dL 0-149 above high normal Not Available [facility] ([facility]) [address] [place], [address], 03/03/2025 13:08:24 03/02/20 25 03/03/2025 LIPID PANEL HDL cholesterol 29 mg/dL >39 below low normal Not Available [facility] ([facility]) [address] [place], [address], 03/03/2025 13:08:24 03/02/20 25 03/03/2025 LIPID PANEL VLDL cholesterol kristina 35 mg/dL 5-40 Not Available [facility] ([facility]) [address] [place], [address], 03/03/2025 13:08:24 03/02/20 25 03/03/2025 LIPID PANEL LDL chol calc ([facility]) 72 mg/dL 0-99 Not Available [facility] ([facility]) [address] [place], [address], 03/03/2025 13:08:24 03/02/20 25 03/03/2025 LIPID PANEL LDL calc comment: [employer] Not Available [facility] ([facility]) [address] [place], [address], 03/03/2025 13:08:24 03/02/20 25 03/03/2025 ALBUM IN/CR EATIN INE RATIO ,URIN E creatinine, urine 148.7 mg/dL not estab. normal Not Available [facility] ([facility]) [address] [place], [address], 03/03/2025 13:08:25 03/02/20 25 03/03/2025 ALBUM IN/CR EATIN INE RATIO ,URIN E albumin, urine 8.5 ug/mL not estab. Not Available [facility] ([facility]) [address] [place], [address], 03/03/2025 13:08:25 03/02/20 25 03/03/2025 ALBUM IN/CR EATIN INE RATIO ,URIN E alb/creat ratio 6 mg/g_ creat 0-29 Kat l: 0 - 29 Moder ately incre ased: 30 - 300 Sever oleg incre ased: >300 Not Available [facility] ([facility]) [address] [place], [address], 03/03/2025 13:08:25 03/02/20 25 03/03/2025 TESTO STERO NE testosterone 191 NG/dL 264-91 6 below low normal Adult male refer ence inter ruperto is based on a popul ation of healt hy nonob manjula males (BMI <30) betwe en 19 and 39 years old. Joy catherine et.al . JCEM 2017, 102;1 161-1 173. PMID: 73120 103. Not Available [facility] ([facility]) [address] [place], [address], 03/03/2025 13:08:25 03/02/20 25 03/03/2025 VITAM IN D, 25-HY DROXY vitamin D, [...] Medic ine). 2010. Dieta ry refer ence intak es for calci um and D. Victorina mcgowan [place]: [facility] . 2. Sulma javier [place], Scott zamorano [place], Elmer off-F cliftonar i LERMA, et al. Evalu ation , treat ment, and preve ntion of vitam in D defic iency : an Endoc rine Socie ty clini kristina pract ice guide line. JCEM. 2010; 96(7) :1911 -30. Not Available [facility] ([facility]) [address] [place], [address], 03/03/2025 13:08:26 03/02/20 25 03/03/2025 TSH RFX ON ABNOR MAL TO FREE T4 TSH 5.350 uIU/m L 0.450- 4.500 above high normal Not Available [facility] ([facility]) [address] [place], [address], 03/03/2025 13:08:27 03/02/20 25 03/03/2025 TSH RFX ON ABNOR MAL TO FREE T4 T4,free (direct) 0.98 NG/dL 0.82-1 .77 normal Not Available [facility] ([facility]) [address] [place], [address], 03/03/2025 13:08:27 03/02/20 25 03/02/2025 HbA1c (hemo globi n A1c), blood HbA1c 6.3 Not Available [address], [address], 03/02/2025 11:42:14 03/16/2003/16/2025 06243 0 7 DRUG- SCR drug screen comment: [...] on is avail able at jennifer sun [email or web address], or call toll free [phone] 17. Not Available [facility] ([facility]) [address] [place], [address], 03/17/2025 18:07:58 03/16/2003/17/2025 53484 0 7 DRUG- SCR amphetamines , urine Negati ve NG/mL cutoff =1000 Amphe tamin e test inclu sixto Amphe tamin e and Metha mphet amine . Not Available [facility] ([facility]) [address] [place], [address], 03/17/2025 18:07:58 03/16/20 25 03/17/2025 64066 0 7 DRUG- SCR barbiturates Negati ve NG/mL cutoff =200 Not Available [facility] ([facility]) [address] [place], [address], 03/17/2025 18:07:58 03/16/20 25 03/17/2025 27597 0 7 DRUG- SCR benzodiazepi disha Negati ve NG/mL cutoff =300 Not Available [facility] ([facility]) [address] [place], [address], 03/17/2025 18:07:58 03/16/20 25 03/17/2025 52123 0 7 DRUG- SCR cannabinoid Positi ve NG/mL cutoff =50 abnormal Not Available [facility] ([facility]) [address] [facility], [place], [address], 03/17/2025 18:07:58 03/16/20 25 03/17/2025 04678 0 7 DRUG- SCR cocaine (metab.) Negati ve NG/mL cutoff =300 Not Available [facility] ([facility]) [address] [facility], [place], [address], 03/17/2025 18:07:58 03/16/20 25 03/17/2025 88871 0 7 DRUG- SCR opiates Negati ve NG/mL cutoff =300 Opiat e test inclu sixto Codei ne and Morph ine only. Not Available [facility] ([facility]) [address] [facility], [place], [address], 03/17/2025 18:07:58 03/16/20 25 03/17/2025 83943 0 7 DRUG- SCR phencyclidin e Negati ve NG/mL cutoff =25 Not Available [facility] ([facility]) [address] [facility], [place], [address], 03/17/2025 18:07:58 03/16/20 25 03/17/2025 PROST ATE-S [...] of yajaira gu se. Not Available [facility] ([facility]) [address] [facility], [place], [address], 03/17/2025 18:07:58 Result Notes None recorded. Problems Name Problem SNOMED Code Status Onset Date Resolution Date Notes Provider Name and Address Organization Details Recorded Time Hyperten sive disorder 21471191 Completed 201601/24/2017 Problem Code: I10; Problem Code Type: ICD-10; Not Available [facility] Pain in right knee Completed 201602/23/2017 Problem Code: M25.561; Problem Code Type: ICD-10; Not Available [facility] 22:37:52 Benign essentia l hyperten artemio 8292245 Completed 201609/20/2017 Problem Code: 401.1; Problem Code Type: ICD-9; Not Available [facility] 22:37:57 Knee pain Completed 201602/23/2017 Problem Code: 719.46; Problem Code Type: ICD-9; Not Available [facility] 22:37:59 Severe obesity [id number] 104 Completed 201609/20/2017 Problem Code: E66.01; Problem Code Type: ICD-10; Not Available [facility] 22:37:50 Generali zed anxiety disorder 04436156 Completed 201609/20/2017 Problem Code: F41.1; Problem Code Type: ICD-10; Not Available [facility] 22:37:50 Morbid obesity 007138427 Completed 201609/20/2017 Problem Code: 278.01; Problem Code Type: ICD-9; Not Available [facility] 22:37:57 Acute laryngop haryngit is 87132488 Completed 201709/20/2017 Problem Code: J06.0; Problem Code Type: ICD-10; Not Available [facility] 2 22:37:51 Cough 24652799 Completed 201709/20/2017 Problem Code: R05; Problem Code Type: ICD-10; Not Available [facility] 22[facility]37[facility]52 Acute upper respirat ory infectio n of multiple sites Completed 201709/20/2017 Problem Code: 465.8; Problem Code Type: ICD-9; Not Available [facility] 22:37:58 Body mass index 40+ - severely obese 414183607 Completed 201706/06/2021 Problem Code: V85.43; Problem Code Type: ICD-9; Not Available [facility] 22:37:59 Body mass index 30+ - obesity 503474624 Completed 201708/09/2019 Problem Code: Z68.43; Problem Code Type: ICD-10; Not Available [facility] 22:38[facility]00 Residual hemorrho idal skin tags 51882794 Completed 201708/09/2019 Problem Code: K64.4; Problem Code Type: ICD-10; Not Available [facility] 22:37:52 Heartbur n 40272738 Completed 201712/20/2017 Problem Code: R12; Problem Code Type: ICD-10; Not Available [facility] 22:37:53 Body mass index 30+ - obesity 081400199 Completed 201708/09/2019 Problem Code: Z68.43; Problem Code Type: ICD-10; Not Available [facility] 22:37:56 External hemorrho ids 36859955 Completed 201706/06/2021 Problem Code: 455.3; Problem Code Type: ICD-9; Kaelyn Sanchez APRN [address] [place], [address] , [facility] [employer] 5 14:07:34 Body mass index 40+ - severely obese 967368588 Completed 201706/06/2021 Problem Code: V85.43; Problem Code Type: ICD-9; Not Available [facility] 22:38:01 Allergic rhinitis caused by pollen 19088530 Completed 201704/12/2018 Problem Code: J30.1; Problem Code Type: ICD-10; Not Available [facility] 22:37:51 Body mass index 30+ - obesity 148602739 Completed 201708/09/2019 Problem Code: Z68.43; Problem Code Type: ICD-10; Not Available [facility] 22:37:56 Body mass index 40+ - severely obese 330452207 Completed 201706/06/2021 Problem Code: V85.43; Problem Code Type: ICD-9; Not Available [facility] 22:38:01 Acute frontal sinusiti s 51853441 Completed 201903/07/2020 Problem Code: J01.10; Problem Code Type: ICD-10; Not Available [facility] 22:37:50 Acute bronchit is 43019439 Completed 201903/07/2020 Problem Code: J20.9; Problem Code Type: ICD-10; ALEKS gonzalez, [employer] 2 14:24:25 Wheezing 42992321 Completed 201905/04/2022 Problem Code: R06.2; Problem Code Type: ICD-10; ALEKS gonzalez, [employer] 2 14:24:25 General examinat ion of patient Completed 201902/20/2021 ALEKS gonzalez, [employer] 2 14:24:25 Body mass index 30+ - obesity 294256671 Completed 201901/23/2021 Problem Code: Z68.43; Problem Code Type: ICD-10; Not Available [facility] 22:37:56 Allergic rhinitis 70788335 Active 2019 Problem Code: J30.9; Problem Code Type: ICD-10; Not Available [facility] 22:37:51 Umbilica l hernia 432094560 Completed 201907/15/2020 Problem Code: K42.9; Problem Code Type: ICD-10; Bia Santiago, JANET [address] [place], [address] , [employer] 4 14:40:56 Body mass index 30+ - obesity 211396589 Active 2019 Problem Code: Z68.43; Problem Code Type: ICD-10; Not Available [facility] 2 22:37:55 Acute bronchit is 61116940 Completed 202005/04/2022 Problem Code: J20.9; Problem Code Type: ICD-10; ALEKS gonzalez, [employer] 2 14:24:25 Dizzines s and giddines s 101142890 Completed 202005/04/2022 Problem Code: R42; Problem Code Type: ICD-10; ALEKS gonzalez, [employer] 2 14:24:25 Vitamin D deficien cy 43777447 Active 2020 Problem Code: E55.9; Problem Code Type: ICD-10; Kaelyn Sanchez, CUTLERY GRINDER [address] [place], [address] , [employer] 5 11:43:28 Tobacco dependen ce caused by chewing tobacco 39584930739 539235 Active 2020 Problem Code: F17.220; Problem Code Type: ICD-10; Not Available [facility] 2 22:37:50 General examinat ion of patient Completed 202005/04/2022 ALEKSMERRITT gonzalez, [employer] 2 14:24:25 Body mass index 30+ - obesity 520916130 Completed 202002/20/2021 Problem Code: Z68.43; Problem Code Type: ICD-10; Not Available [facility] 2 22:37:56 Acute sinusiti s 66426198 Completed 202006/06/2021 Problem Code: J01.90; Problem Code Type: ICD-10; Kaelyn Sanchez, JOSE [address] [place], [address] , [employer] 5 14:07:29 COVID-19 879437926 Completed 202006/06/2021 Problem Code: U07.1; Problem Code Type: ICD-10; ALEKS GROSSPAM gonzalez, [employer] 2 14:24:25 COVID-19 683552673 Completed 202006/06/2021 Problem Code: U07.1; Problem Code Type: ICD-10; ALEKS GROSSNER carlos, [employer] 14:24:25 Acute tonsilli tis caused by Streptoc occus 72289389164 322320 Completed 202007/20/2021 Problem Code: J03.00; Problem Code Type: ICD-10; Not Available [facility] 22:37:51 Influenz a caused by Influenz a A virus 952755571 Completed 202105/04/2022 ALEKS GROSSPAM gonzalez, [employer] 2 14:24:25 COVID-19 415612486 Completed 202105/04/2022 Problem Code: U07.1; Problem Code Type: ICD-10; ALEKS GROSSPAM gonzalez, [employer] 2 14:24:25 Acute sinusiti s 00839332 Completed 202105/04/2022 Problem Code: J01.90; Problem Code Type: ICD-10; Kaelyn Sanchez APRN [address] [place], [address] , [employer] 5 14:07:29 Myositis 36904404 Completed 202105/04/2022 Problem Code: M60.9; Problem Code Type: ICD-10; ALEKS THERESAPAM gonzalez, [employer] 2 14:24:25 Dyspnea 877818043 Completed 202105/04/2022 Problem Code: R06.02; Problem Code Type: ICD-10; ALEKS gonzalez, [employer] 2 14:24:25 Finding of sensatio n of nose 149982791 Completed 202105/04/2022 Problem Code: R43.9; Problem Code Type: ICD-10; ALEKS gonzalez, [employer] 2 14:24:25 Exposure to SARS-CoV -2 Completed 202105/04/2022 Problem Code: Z20.822; Problem Code Type: ICD-10; ALEKS gonzalez, [employer] 2 14:24:25 Noninfec tious gastroen teritis 16166831 Completed 202105/04/2022 ALEKS gonzalez, [employer] 2 14:24:25 Umbilica l hernia 006270278 Active 2023 Problem Code: K42.9; Problem Code Type: ICD-10; Bia Santiago NP [address] [place], [address] , [employer] 4 14:40:56 Type 2 diabetes mellitus without complica tion 128675067 Active 2023 Kaelyn Sanchez APRN [address] [place], [address] , [employer] 5 12:09:41 Essentia l hyperten artemio 86779605 Active 2023 Kaelyn Sanchez APRN [address] [place], [address] , [employer] 5 11:42:00 Gastroes ophageal reflux disease without esophagi tis 962250226 Active 2024 Bia Santiago NP [address] [place], [address] , [employer] 5 14:14:09 Streptoc occal sore throat 96138368 Active 2024 Bia Santiago, [employer] [address] [place], [address] , [employer] 14:41:39 Sore throat 719989525 Active 2024 Bia Santiago, [employer] [address] [place] [address], [address] , [employer] 14:41:40 Type 2 diabetes mellitus 91405133 Active 2024 Kaelyn Sanchez APRN [address] [place] [address], [address] , [employer] 14:14:00 Recurren t sinusiti s 246364776 Active 2024 Kaelyn Sanchez APRN [address] [place] [address], [address] , [employer] 14:18:29 Fatigue 21329044 Active 2024 Kaelyn Sanchez APRN [address] [place] [address], [address] [place] [address] , [employer] 11:49:34 Acquired hypothyr oidism 927178612 Active 2024 Kaelyn Sanchez APRN [address] [place] [address], [address] , [employer] 11:46:15 Male hypogona dism 39518069 Active 2024 Kaelyn Sanchez APRN [address] [place] [address], [address] , [employer] 11:46:25 Problem Notes None recorded. Procedures Surgical History Date Name Laterality Status Provider Name and Address Organization Details Recorded Time 5 Skin Tag Removal completed Kaelyn Sanchez APRN [address] [place] [address], [id number], [employer] 07/13/2024 16:37:13 4 Cerumen Removal completed Kaelyn Sanchez, [employer] [address] [place], [address], [employer] 07/15/2023 10:09:28 Imaging Results None recorded. Procedure Notes None recorded. Medical Equipment None Reported. Allergies Allergen ID Allergen Name Allergen Category Reaction Reaction Severity Criticality Documentation Date Start Date Code Code System Note Provider Name and Address Organization Details Recorded Time 28616 hydrochlo rothiazid e medicatio n other Not available low 02/05/2023 5487 RxNorm GOUT Kaelyn Sanchez, C[employer] [address] [place], [address], [employer] 3 15:34:21 Medications Name Sig Start [...] propionate 50 mcg/actuat ion nasal spray,susp ension [place] 1 spray into each nostril every day. [...] Allergy 205.5 mcg (0.15 %) nasal spray [place] 1 spray twice a day by intranas [...] Tobacco Smoking Status Former Smoker Mary gonzalez, [employer] 01/20/2024 16:04:43 Do You Have An Advance Directive? No Information not available 05/04/2022 Is Your Home Air Conditioned? Yes Information not available 11/21/2022 Do You Wear A Helmet When Biking? No [email or web address] Information not available 06/11/2024 Are You Blind Or Do You Have Difficulty Seeing? No [email or web address] Information not available 05/04/2022 Are You A Caregiver? No [email or web address] Information not available 02/13/2023 In The 14 Days Before Symptom Onset, Have You Had Close Contact With A Laboratory-confir med COVID-19 While That Case Was Ill? No [email or web address] Information not available 05/04/2022 In The 14 Days Before Symptom Onset, Have You Had Close Contact With A Person Who Is Under Investigation For COVID-19 While That Person Was Ill? No [email or web address] Information not available 05/04/2022 Have You Been To An Area Known To Be High Risk For COVID-19? No [email or web address] Information not available 05/04/2022 Are You Deaf Or Do You Have Serious Difficulty Hearing? No [email or web address] Information not available 05/04/2022 What Type Of Diet Are You Following? REGULAR [email or web address] Information not available 06/11/2024 Who Is Your Employer? [employer] [email or web address] Information not available 01/15/2024 Have There Been Any Changes To Your Family Or Social Situation? No [email or web address] Information no t available 02/13/2023 When Did You Quit Smoking? 1-5yearssincel ashlee Information not available 01/28/2024 Are There Any Guns Present In Your Home? Yes [email or web address] Information not available 05/04/2022 Which Of Your Hands Is Dominant? Right Information not available 12/19/2022 Do You Have A Medical Power Of Trauma Coordinator? No [email or web address] Information not available 05/04/2022 What Was The Date Of Your Most Recent Tobacco Screening? 03/16/2025 Information not available 03/16/2025 What Is Your Current Pack Years? 10-19packyears Information not available 01/28/2024 Do You Have Any Pets? Yes [email or web address] Information not available 02/13/2023 What Is Your Relationship Status? [email or web address] Information not available 05/04/2022 Do You Use Your Seat Belt Or Car Seat Routinely? Yes [email or web address] Information not available 05/04/2022 Are You Sexually Active? Yes [email or web address] Information not available 06/11/2024 Do You Have Smoke And Carbon Monoxide Detectors In Your Home? Yes Information not available 11/21/2022 Are You Passively Exposed To Smoke? No Information no t available 11/21/2022 Are There Any Smokers In Your House? No Information not available 11/21/2022 Do You Participate In Social Media? Yes [email or web address] Information not available 06/11/2024 Do You Use Sunscreen Routinely? No [email or web address] Information not available 05/04/2022 Has Tobacco Cessation Counseling Been Provided? No [email or web address] Information not available 02/13/2023 Have You Recently Traveled Abroad? No [email or web address] Information not available 05/04/2022 Do You Have Difficulty Walking Or Climbing Stairs? No [email or web address] Information not available 05/04/2022 Are You Currently In School? No [email or web address] Information not available 05/04/2022 Do You Have Any Dietary Restrictions? No [email or web address] Information not available 06/11/2024 Sex: Male Functional Status Question Answer Note LastModified by Organizat ion Details LastModified Time Do you use any illicit or recreational drugs? No [email or web address] Information not available 02/13/2023 Do you or have you ever used any other forms of tobacco or nicotine? No drobirds Information not available 02/08/2024 What is your level of alcohol consumption? None [email or web address] Information not available 05/04/2022 Do you or have you ever used smokeless tobacco? Current snuff user [email or web address] Information not available 05/04/2022 Are you currently employed? Yes [email or web address] Information not available 02/13/2023 Do you have transportation difficulties? No [email or web address] Information not available 05/04/2022 Are you able to walk independently without assistance or assistive devices? YESWOREST [email or web address] Information not available 05/04/2022 Do you have difficulty doing errands alone? No [email or web address] Information not available 05/04/2022 Are you able to care for yourself independently? Yes [email or web address] Information not available 05/04/2022 Do you have difficulty dressing, bathing, grooming, or toileting? No [email or web address] Information not available 05/04/2022 Do you or have you ever used e-cigarettes or vape? Never used electronic cigarettes Information not available 02/13/2023 Mental Status Question Answer Note LastModified by Organizat ion Details LastModified Time Do you feel stressed (tense, restless, nervous, or anxious, or unable to sleep at night)? [id number] [email or web address] Information not available 06/11/2024 Do you have difficulty concentrating, remembering or making decisions? No Information no t available 05/04/2022 Family History Relationship Description Onset Age of this Age Resolved Age Notes LastModified by Organization Details LastModified Time Sister Family history of breast cancer Not available 11/2022 14:20:18 Mother Family history of Hypertension [email or web address] Not available 02/13/2023 14:20:27 Mother Family history of diabetes mellitus type 2 [email or web address] Not available 11/2022 14:21:09 Father Family history of alcoholism [email or web address] Not available 14:20:41 Paternal Grandmother Family history of Anxiety state [email or web address] Not available 11/2022 14:20:51 Maternal Grandmother Family history of breast cancer [email or web address] Not available 11/2022 14:20:22 Medical History Condition Response Allergies/Hayfever N Diabetes Y Hospitalizations N Obesity Y Acid Reflux (GERD) Y Emergency room visit since last appointm ent. N Hypertension Y Acne N Immunizations Vaccine Type Date Status Note Provider Nam e and Address Organization Details Recorded Time Tdap 5 completed Not Available [employer] 02/13/2022 23:17:26 Tdap 1 completed ALEKS THERESA null, [employer] 05/04/2022 14:34:20 Td (adult), 2 Lf tetanus toxoid, preservative free, adsorbed 4 completed [employer] [place], [employer] 05/04/2022 14:34:20 Hep B, adolescent or pediatric 3 completed [employer], [employer] 05/04/2022 14:34:20 Hep B, adolescent or pediatric 2 completed [employer] null, [employer] 05/04/2022 14:34:20 Influenza, split virus, trivalent, preservative 0 completed [employer] null, [employer] 05/04/2022 14:34:20 MMR 2 completed [employer] null, [employer] 05/04/2022 14:34:20 Hep B, adolescent or pediatric 2 completed [employer] null, [employer] 05/04/2022 14:34:20 varicella 2 completed [employer] null, [employer] 05/04/2022 14:34:20 Influenza, split virus, trivalent, preservative 9 completed [employer] null, [employer] 05/04/2022 14:34:20 Past Encounters Encounter ID Performer Location Encounter Start Date Encounter Closed Date Diagnosis/Indication Diagnosis SNOMED-CT Code Diagnosis ICD10 Code Diagnosis IMO Codes [place] [id number] [id number] [place] 03/02/2025 11:13:12 03/02/2025 12:35:24 Type 2 diabetes mellitus without complication 446154129 E11.9 Increase Ozempic 0.5 mg, DM diet and exercise encouraged . No other med changes today. Essential hypertension 66769049 I10 DASH diet, exercise, continue weight loss efforts. Vitamin D deficiency 347 55452 E55.9 46782 Body mass index 40+ - severely obese 004554403 Z68.43 [id number] Fatigue 49950740 R53.83 [id number] Kaelyn Sanchez [place] [id number] 0 03/16/2025 11:21:58 03/16/2025 12:45:34 Acquired hypothyroidism 741670891 E03.9 85363 Start Synthroid Male hypogonadism 496677 06 E29.1 53464421 Start biweekly testostero ne injections for 3 months, [place] reviewed, UDS and PSA obtained. prison controlled substance agreement obtained. Vitamin D deficiency 347 27054 E55.9 64206 Start ergocal weekly for 3 months. Long-term current use of drug therapy 173936508 Z79.516 [id number] [place] [id number] 03/29/2025 09:42:14 03/29/2025 10:11:54 Male hypogonadism 81053533 E29.1 [id number] Start biweekly testostero ne injections for 3 months, [place] reviewed, UDS and PSA obtained. prison controlled substance agreement obtained. Health Concerns Section Related Observation LastModified by Organization Detai ls LastModified Time None Recorded Concern Status LastModified by Organization Details LastModified Time None Recorded Payers Encounter Date Sequence Insurance Name Policy Number Policy Gomez Covered Member ID Gomez Member ID Guarantor Name 03/29/2025 1 [facility] (MEDICAID REPLACEMENT - HMO) Bob Munoz [id number] Bob Munoz
--- OUTSIDE RECORDS SUMMARY | 2025-04-25 10:19 | XMS_ITS | Data Portability ---
Author Organization [employer] [facility] Address [address] [place] [address] Assessment Encounter Date Assessment Date Assessment LastModified [...] available Lab drug screen, urine 2024 025 THREAT STREAM [facility] ([place]), [facility] [place], [address], 03/17/2025 18:07:58 PSA, total, serum or plasma 2024 025 THREAT STREAM [facility] ([place]), [address] [place], [address], 03/17/2025 18:07:59 TSH, ultra-sen sitive, serum 2024 025 [facility] [address] [place], [address], 03/03/2025 13:08:27 vitamin D, 25-hydrox y, total, serum 2024 025 [facility] ([place]), [address] [place], [address], 03/03/2025 13:08:26 HbA1c (hemoglob in A1c), blood [address], [address], 03/02/2025 11:44:41 lipid panel, serum 2024 025 [facility] ([place]), [address] [place], [address], 03/03/2025 13:08:24 albumin/c reatinine , mass ratio, urine 2024 025 [facility] ([place]), [address] [place], [address], 03/03/2025 13:08:25 CBC w/ auto diff 2024 025 [facility] ([place]), [address] [place], [address], 03/03/2025 13:08:24 CMP, serum or plasma 2024 025 [facility] ([place]), [address] [place], [address], 03/03/2025 13:08:23 testoster one, total, serum 2024 025 [facility] ([place]), [address] [place], [address], 03/03/2025 13:08:26 Referral None recorded. Procedures None recorded. Surgeries None recorded. Imaging None recorded. Medication Orders testoster one cypionate 200 mg/mL intramusc ular oil [email or web address] [facility], [address] [place] [address], [address], 04/12/2025 15:19:29 testoster one cypionate 200 mg/mL intramusc ular oil 2024 025 [email or web address] Not available 03/29/2025 11:05:35 levothyro xine 25 mcg tablet 2024 [facility], [address] [place] [address], [address], 03/17/2025 10:47:55 ergocalci ferol (vitamin D2) 1,250 mcg (50,000 unit) capsule 2024 [facility], [address] [place] [address], [address], 03/17/2025 10:47:55 testoster one cypionate 200 mg/mL intramusc ular oil 2024 025 [facility], [address] [place] [address], [address], 03/16/2025 12:18:58 testoster one cypionate 200 mg/mL intramusc ular oil 2024 025 [email or web address] Not available 03/16/2025 12:20:32 Ozempic 0.25 mg or 0.5 mg (2 mg/3 mL) subcutane ous pen injector 2024 025 [facility], [address] [place] [address], [address], 04/03/2025 09:37:17 Ozempic 0.25 mg or 0.5 mg (2 mg/1.5 mL) subcutane ous pen injector 2024 025 [facility], [address] [place] [address], [address], 03/16/2025 12:13:55 cefdinir 250 mg/5 mL oral suspensio n 2024 025 [facility], [address] [place] [address], [address], 03/16/2025 12:13:54 Patient TargetsNo targets recorded. Patient InstructionsNo instructions recorded. Reason for Referral None Reported. Results Created Date Observation Date Name Description Value Unit Range Abnormal Flag Note LastModifiedBy Organization Detail LastModifiedTime 03/02/2003/03/2025 CMP14 +EGFR glucose 148 mg/dL 70-99 above high normal Not Available [facility] ([facility]) [address] [place], [address], 03/03/2025 13:08:23 03/02/20 25 03/03/2025 CMP14 +EGFR BUN 11 mg/dL 6-20 normal Not Available [facility] ([facility]) [address] [facility], [place], [address], 03/03/2025 13:08:23 03/02/20 25 03/03/2025 CMP14 +EGFR creatinine 1.13 mg/dL 0.76-1 .27 normal Not Available [facility] ([facility]) [address] [place], [address], 03/03/2025 13:08:23 03/02/20 25 03/03/2025 CMP14 +EGFR eGFR 87 mL/mi n/1.7 3 >59 normal Not Available [facility] ([facility]) [address] [facility], [place], [address], 03/03/2025 13:08:23 03/02/20 25 03/03/2025 CMP14 +EGFR BUN/creatini ne ratio 10 9-20 normal Not Available [facility] ([facility]) [address] [facility], [place], [address], 03/03/2025 13:08:23 03/02/20 25 03/03/2025 CMP14 +EGFR sodium 139 mmol/ L 134-14 4 normal Not Available [facility] ([facility]) [address] [facility], [place], [address], 03/03/2025 13:08:23 03/02/20 25 03/03/2025 CMP14 +EGFR potassium 4.6 mmol/ L 3.5-5. 2 normal Not Available [facility] ([facility]) [address] [facility], [place], [address], 03/03/2025 13:08:23 03/02/20 25 03/03/2025 CMP14 +EGFR chloride 102 mmol/ L 96-106 normal Not Available [facility] ([facility]) [address] [facility], [place], [address], 03/03/2025 13:08:23 03/02/20 25 03/03/2025 CMP14 +EGFR carbon dioxide, total 22 mmol/ L 20-29 normal Not Available [facility] ([facility]) [address] [facility], [place], [address], 03/03/2025 13:08:23 03/02/20 25 03/03/2025 CMP14 +EGFR calcium 9.0 mg/dL 8.7-10 .2 normal Not Available [facility] ([facility]) [address] [facility], [place], [address], 03/03/2025 13:08:23 03/02/20 25 03/03/2025 CMP14 +EGFR protein, total 6.9 g/dL 6.0-8. 5 normal Not Available [facility] ([facility]) [address] [facility], [place], [address], 03/03/2025 13:08:23 03/02/20 25 03/03/2025 CMP14 +EGFR albumin 4.1 g/dL 4.1-5. 1 normal Not Available [facility] ([facility]) [address] [facility], [place], [address], 03/03/2025 13:08:23 03/02/20 25 03/03/2025 CMP14 +EGFR globulin, total 2.8 g/dL 1.5-4. 5 Not Available [facility] ([facility]) [address] [facility], [place], [address], 03/03/2025 13:08:23 03/02/20 25 03/03/2025 CMP14 +EGFR bilirubin, total 0.3 mg/dL 0.0-1. 2 normal Not Available [facility] ([facility]) [address] [facility], [place], [address], 03/03/2025 13:08:23 03/02/20 25 03/03/2025 CMP14 +EGFR alkaline phosphatase 116 IU/L 47-123 normal Ple ase note refer ence inter ruperto barros Not Available [facility] ([facility]) [address] [facility], [place], [address], 03/03/2025 13:08:23 03/02/20 25 03/03/2025 CMP14 +EGFR AST (SGOT) 14 IU/L 0-40 normal Not Available [facility] ([facility]) [address] [facility], [place], [address], 03/03/2025 13:08:23 03/02/20 25 03/03/2025 CMP14 +EGFR ALT (SGPT) 18 IU/L 0-44 normal Not Available [facility] ([facility]) [address] [facility], [place], [address], 03/03/2025 13:08:23 03/02/20 25 03/03/2025 CBC WITH DIFFE RENTI AL/PL ATELE T WBC 7.4 x10e3 /uL 3.4-10 .8 normal Not Available [facility] ([facility]) [address] [place], [address], 03/03/2025 13:08:24 03/02/20 25 03/03/2025 CBC WITH DIFFE RENTI AL/PL ATELE T RBC 4.77 x10e6 /uL 4.14-5 .80 normal Not Available [facility] ([facility]) [address] [facility], [place], [address], 03/03/2025 13:08:24 03/02/20 25 03/03/2025 CBC WITH DIFFE RENTI AL/PL ATELE T hemoglobin 12.0 g/dL 13.0-1 7.7 below low normal Not Available [facility] ([facility]) [address] [place], [address], 03/03/2025 13:08:24 03/02/20 25 03/03/2025 CBC WITH DIFFE RENTI AL/PL ATELE T hematocrit 39.8 % 37.5-5 1.0 normal Not Available [facility] ([facility]) [address] [place], [address], 03/03/2025 13:08:24 03/02/20 25 03/03/2025 CBC WITH DIFFE RENTI AL/PL ATELE T MCV 83 fL 79-97 normal Not Available [facility] ([facility]) [address] [place], [address], 03/03/2025 13:08:24 03/02/20 25 03/03/2025 CBC WITH DIFFE RENTI AL/PL ATELE T MCH 25.2 pg 26.6-3 3.0 below low normal Not Available [facility] ([facility]) [address] [place], [address], 03/03/2025 13:08:24 03/02/20 25 03/03/2025 CBC WITH DIFFE RENTI AL/PL ATELE T MCHC 30.2 g/dL 31.5-3 5.7 below low normal Not Available [facility] ([facility]) [address] [facility], [place], [address], 03/03/2025 13:08:24 03/02/20 25 03/03/2025 CBC WITH DIFFE RENTI AL/PL ATELE T RDW 13.7 % 11.6-1 5.4 Not Available [facility] ([facility]) [address] [facility], [place], [address], 03/03/2025 13:08:24 03/02/20 25 03/03/2025 CBC WITH DIFFE RENTI AL/PL ATELE T platelets 252 x10e3 /uL 150-45 0 normal Not Available [facility] ([facility]) [address] [facility], [place], [address], 03/03/2025 13:08:24 03/02/20 25 03/03/2025 CBC WITH DIFFE RENTI AL/PL ATELE T neutrophils 60 % not estab. normal Not Available [facility] ([facility]) [address] [facility], [place], [address], 03/03/2025 13:08:24 03/02/20 25 03/03/2025 CBC WITH DIFFE RENTI AL/PL ATELE T lymphs 26 % not estab. normal Not Available [facility] ([facility]) [address] [facility], [place], [address], 03/03/2025 13:08:24 03/02/20 25 03/03/2025 CBC WITH DIFFE RENTI AL/PL ATELE T monocytes 7 % not estab. normal Not Available [facility] ([facility]) [address] [place], [address], 03/03/2025 13:08:24 03/02/20 25 03/03/2025 CBC WITH DIFFE RENTI AL/PL ATELE T eos 5 % not estab. normal Not Available [facility] ([facility]) [address] [place], [address], 03/03/2025 13:08:24 03/02/20 25 03/03/2025 CBC WITH DIFFE RENTI AL/PL ATELE T basos 1 % not estab. normal Not Available [facility] ([facility]) [address] [facility], [place], [address], 03/03/2025 13:08:24 03/02/20 25 03/03/2025 CBC WITH DIFFE RENTI AL/PL ATELE T immature cells WAISTLINE JOINER OVERLOCK Not Available [facility] ([facility]) [address] [facility], [place], [address], 03/03/2025 13:08:24 03/02/20 25 03/03/2025 CBC WITH DIFFE RENTI AL/PL ATELE T neutrophils (absolute) 4.5 x10e3 /uL 1.4-7. 0 normal Not Available [facility] ([facility]) [address] [facility], [place], [address], 03/03/2025 13:08:24 03/02/20 25 03/03/2025 CBC WITH DIFFE RENTI AL/PL ATELE T lymphs (absolute) 1.9 x10e3 /uL 0.7-3. 1 normal Not Available [facility] ([facility]) [address] [facility], [place], [address], 03/03/2025 13:08:24 03/02/20 25 03/03/2025 CBC WITH DIFFE RENTI AL/PL ATELE T monocytes(ab solute) 0.5 x10e3 /uL 0.1-0. 9 normal Not Available [facility] ([facility]) [address] [place], [address], 03/03/2025 13:08:24 03/02/20 25 03/03/2025 CBC WITH DIFFE RENTI AL/PL ATELE T eos (absolute) 0.4 x10e3 /uL 0.0-0. 4 normal Not Available [facility] ([facility]) [address] [facility], [place], [address], 03/03/2025 13:08:24 03/02/20 25 03/03/2025 CBC WITH DIFFE RENTI AL/PL ATELE T baso (absolute) 0.1 x10e3 /uL 0.0-0. 2 normal Not Available [facility] ([facility]) [address] [facility], [place], [address], 03/03/2025 13:08:24 03/02/20 25 03/03/2025 CBC WITH DIFFE RENTI AL/PL ATELE T immature granulocytes 1 % not estab. Not Available [facility] ([facility]) [address] [facility], [place], [address], 03/03/2025 13:08:24 03/02/20 25 03/03/2025 CBC WITH DIFFE RENTI AL/PL ATELE T immature grans (abs) 0.1 x10e3 /uL 0.0-0. 1 Not Available [facility] ([facility]) [address] [facility], [place], [address], 03/03/2025 13:08:24 03/02/20 25 03/03/2025 CBC WITH DIFFE RENTI AL/PL ATELE T NRBC WAISTLINE JOINER OVERLOCK Not Available [facility] ([facility]) [address] [facility], [place], [address], 03/03/2025 13:08:24 03/02/20 25 03/03/2025 CBC WITH DIFFE RENTI AL/PL ATELE T hematology comments: WAISTLINE JOINER OVERLOCK Not Available [facility] ([facility]) [address] [facility], [place], [address], 03/03/2025 13:08:24 03/02/20 25 03/03/2025 LIPID PANEL cholesterol, total 136 mg/dL 100-19 9 normal Not Available [facility] ([facility]) [address] [place], [address], 03/03/2025 13:08:24 03/02/20 25 03/03/2025 LIPID PANEL triglyceride s 210 mg/dL 0-149 above high normal Not Available [facility] ([facility]) [address] [facility], [place], [address], 03/03/2025 13:08:24 03/02/20 25 03/03/2025 LIPID PANEL HDL cholesterol 29 mg/dL >39 below low normal Not Available [facility] ([facility]) [address] [place], [address], 03/03/2025 13:08:24 03/02/20 25 03/03/2025 LIPID PANEL VLDL cholesterol kristina 35 mg/dL 5-40 Not Available [facility] ([facility]) [address] [place], [address], 03/03/2025 13:08:24 03/02/20 25 03/03/2025 LIPID PANEL LDL chol calc ([facility]) 72 mg/dL 0-99 Not Available [facility] ([facility]) [address] [place], [address], 03/03/2025 13:08:24 03/02/20 25 03/03/2025 LIPID PANEL LDL calc comment: WAISTLINE JOINER OVERLOCK Not Available [facility] ([facility]) [address] [place], [address], 03/03/2025 13:08:24 03/02/20 25 03/03/2025 ALBUM IN/CR EATIN INE RATIO ,URIN E creatinine, urine 148.7 mg/dL not estab. normal Not Available [facility] ([facility]) [address] [place], [address], 03/03/2025 13:08:25 03/02/20 25 03/03/2025 ALBUM IN/CR EATIN INE RATIO ,URIN E albumin, urine 8.5 ug/mL not estab. Not Available [facility] ([facility]) [address] [facility], [place], [address], 03/03/2025 13:08:25 03/02/2003/03/2025 ALBUM IN/CR EATIN INE RATIO ,URIN E alb/creat ratio 6 mg/g_ creat 0-29 Kat l: 0 - 29 Moder ately incre ased: 30 - 300 Sever oleg incre ased: >300 Not Available [facility] ([facility]) [address] [facility], [place], [address], 03/03/2025 13:08:25 03/02/2003/03/2025 TESTO STERO NE testosterone 191 NG/dL 264-91 6 below low normal Adult male refer ence inter ruperto is based on a popul ation of healt hy nonob manjula males (BMI <30) betwe en 19 and 39 years old. Joy catherine et.al . JCEM 2017, 102;1 161-1 173. PMID: 50181 103. Not Available [facility] ([facility]) [address] [facility], [place], [address], 03/03/2025 13:08:25 03/02/2003/03/2025 VITAM IN D, 25-HY [...] um and D. Victorina mcgowan [place]: [facility] . 2. Sulma k [place], Scott zamorano [place], Bisshari off-F errar i [place]OR[place], et al. Evalu ation , treat ment, and preve ntion of vitam in D defic iency : an Endoc rine Socie ty clini kristina pract ice guide line. JCEM. 2010; 96(7) :1911 -30. Not Available [facility] ([facility]) [address] [facility], [place], [address], 03/03/2025 13:08:26 03/02/20 25 03/03/2025 TSH RFX ON ABNOR MAL TO FREE T4 TSH 5.350 uIU/m L 0.450- 4.500 above high normal Not Available [facility] ([facility]) [address] [place], [address], 03/03/2025 13:08:27 03/02/20 25 03/03/2025 TSH RFX ON ABNOR MAL TO FREE T4 T4,free (direct) 0.98 NG/dL 0.82-1 .77 normal Not Available [facility] ([facility]) [address] [facility], [place], [address], 03/03/2025 13:08:27 03/02/20 25 03/02/2025 HbA1c (hemo globi n A1c), blood HbA1c 6.3 Not Available [address], [address], 03/02/2025 11:42:14 03/16/20 25 03/16/2025 [id number] 0 7 DRUG- SCR drug screen comment: [...] ltati on is avail able at jennifer dino [email or web address], or call toll free [phone]. Not Available [facility] ([facility]) [address] [facility], [place], [address], 03/17/2025 18:07:58 03/16/20 25 03/17/2025 98373 0 7 DRUG- SCR amphetamines , urine Negati ve NG/mL cutoff =1000 Amphe tamin e test inclu sixto Amphe tamin e and Metha mphet amine . Not Available [facility] ([facility]) [address] [facility], [place], [address], 03/17/2025 18:07:58 03/16/20 25 03/17/2025 73104 0 7 DRUG- SCR barbiturates Negati ve NG/mL cutoff =200 Not Available [facility] ([facility]) [address] [place], [address], 03/17/2025 18:07:58 03/16/20 25 03/17/2025 94325 0 7 DRUG- SCR benzodiazepi disha Negati ve NG/mL cutoff =300 Not Available [facility] ([facility]) [address] [place], [address], 03/17/2025 18:07:58 03/16/20 25 03/17/2025 70376 0 7 DRUG- SCR cannabinoid Positi ve NG/mL cutoff =50 abnormal Not Available [facility] ([facility]) [address] [place], [address], 03/17/2025 18:07:58 03/16/20 25 03/17/2025 84703 0 7 DRUG- SCR cocaine (metab.) Negati ve NG/mL cutoff =300 Not Available [facility] ([facility]) [address] [place], [address], 03/17/2025 18:07:58 03/16/20 25 03/17/2025 97175 0 7 DRUG- SCR opiates Negati ve NG/mL cutoff =300 Opiat e test inclu sixto Codei ne and Morph ine only. Not Available [facility] ([facility]) [address] [facility], [place], [address], 03/17/2025 18:07:58 03/16/20 25 03/17/2025 45927 0 7 DRUG- SCR phencyclidin e Negati ve NG/mL cutoff =25 Not Available [facility] ([facility]) [address] [facility], [place], [address], 03/17/2025 18:07:58 03/16/2003/17/2025 PROST ATE-S PECIF IC [...] of yajaira gu se. Not Available [facility] ([facility]) [address] [facility], [place], [address], 03/17/2025 18:07:58 Result Notes None recorded. Problems Name Problem SNOMED Code Status Onset Date Resolution Date Notes Provider Name and Address Organization Details Recorded Time Hyperten sive disorder 04083875 Completed 201601/24/2017 Problem Code: I10; Problem Code Type: ICD-10; Not Available [facility] 22:37:50 Pain in right knee Completed 201602/23/2017 Problem Code: M25.561; Problem Code Type: ICD-10; Not Available [facility] 22:37:52 Benign essentia l hyperten artemio 2953607 Completed 201609/20/2017 Problem Code: 401.1; Problem Code Type: ICD-9; Not Available [facility] 22:37:57 Knee pain Completed 201602/23/2017 Problem Code: 719.46; Problem Code Type: ICD-9; Not Available [facility] 22:37:59 Severe obesity [id number] 104 Completed 201609/20/2017 Problem Code: E66.01; Problem Code Type: ICD-10; Not Available [facility] 22:37:50 Generali zed anxiety disorder 31413381 Completed 201609/20/2017 Problem Code: F41.1; Problem Code Type: ICD-10; Not Available [facility] 2 22:37:50 Morbid obesity 291298998 Completed 201609/20/2017 Problem Code: 278.01; Problem Code Type: ICD-9; Not Available [facility] 22:37:57 Acute laryngop haryngit is 54462041 Completed 201709/20/2017 Problem Code: J06.0; Problem Code Type: ICD-10; Not Available [facility] 22:37:51 Cough 63318469 Completed 201709/20/2017 Problem Code: R05; Problem Code Type: ICD-10; Not Available [facility] 22:37:52 Acute upper respirat ory infectio n of multiple sites Completed 201709/20/2017 Problem Code: 465.8; Problem Code Type: ICD-9; Not Available [facility] 22:37:58 Body mass index 40+ - severely obese 250207456 Completed 201706/06/2021 Problem Code: V85.43; Problem Code Type: ICD-9; Not Available [facility] 09/05/202 2 22:37:59 Body mass index 30+ - obesity 354401966 Completed 201708/09/2019 Problem Code: Z68.43; Problem Code Type: ICD-10; Not Available [facility] 2 22:38:00 Residual hemorrho idal skin tags 89296427 Completed 201708/09/2019 Problem Code: K64.4; Problem Code Type: ICD-10; Not Available [facility] 2 22:37:52 Heartbur n 06454220 Completed 201712/20/2017 Problem Code: R12; Problem Code Type: ICD-10; Not Available [facility] 22:37:53 Body mass index 30+ - obesity 019436963 Completed 201708/09/2019 Problem Code: Z68.43; Problem Code Type: ICD-10; Not Available [facility] 2 22:37:56 External hemorrho ids 08714952 Completed 201706/06/2021 Problem Code: 455.3; Problem Code Type: ICD-9; Kaelyn Sanchez, JOSE [address] [place] [address], [phone] , [facility] [employer], [facility]. 5 14:07:34 Body mass index 40+ - severely obese 539204677 Completed 201706/06/2021 Problem Code: V85.43; Problem Code Type: ICD-9; Not Available [facility] 2 22:38:01 Allergic rhinitis caused by pollen 74640681 Completed 201704/12/2018 Problem Code: J30.1; Problem Code Type: ICD-10; Not Available [facility] 2 22:37:51 Body mass index 30+ - obesity 873459380 Completed 201708/09/2019 Problem Code: Z68.43; Problem Code Type: ICD-10; Not Available [facility] 2 22:37:56 Body mass index 40+ - severely obese 222041575 Completed 201706/06/2021 Problem Code: V85.43; Problem Code Type: ICD-9; Not Available [facility] 2 22:38:01 Acute frontal sinusiti s 85305429 Completed 201903/07/2020 Problem Code: J01.10; Problem Code Type: ICD-10; Not Available [facility] 2 22:37:50 Acute bronchit is 27740085 Completed 201903/07/2020 Problem Code: J20.9; Problem Code Type: ICD-10; ALEKS gonzalez, [employer] 2 14:24:25 Wheezing 39772946 Completed 201905/04/2022 Problem Code: R06.2; Problem Code Type: ICD-10; ALEKS gonzalez, [employer] 2 14:24:25 General examinat ion of patient Completed 201902/20/2021 ALEKS gonzalez, [employer] 2 14:24:25 Body mass index 30+ - obesity 895899119 Completed 201901/23/2021 Problem Code: Z68.43; Problem Code Type: ICD-10; Not Available [facility] 2 22:37:56 Allergic rhinitis 77002169 Active 2019 Problem Code: J30.9; Problem Code Type: ICD-10; Not Available [facility] 2 22:37:51 Umbilica l hernia 364955204 Completed 201907/15/2020 Problem Code: K42.9; Problem Code Type: ICD-10; Bia Santiago, JANET [address] [place] [address], [phone] , [employer] 4 14:40:56 Body mass index 30+ - obesity 574759949 Active 2019 Problem Code: Z68.43; Problem Code Type: ICD-10; Not Available [facility] 2 22:37:55 Acute bronchit is 39411345 Completed 202005/04/2022 Problem Code: J20.9; Problem Code Type: ICD-10; ALEKS gonzalez, [employer] 2 14:24:25 Dizzines s and giddines s 783679254 Completed 202005/04/2022 Problem Code: R42; Problem Code Type: ICD-10; ALEKS GROSSPAM gonzalez, [employer] 2 14:24:25 Vitamin D deficien cy 86386271 Active 2020 Problem Code: E55.9; Problem Code Type: ICD-10; Kaelyn Sanchez APRN [address] [place] [address], [phone] , [employer] 5 11:43:28 Tobacco dependen ce caused by chewing tobacco 08979927187 828985 Active 2020 Problem Code: F17.220; Problem Code Type: ICD-10; Not Available [facility] 2 22:37:50 General examinat ion of patient Completed 202005/04/2022 ALEKS THERESA carlos, [employer] 2 14:24:25 Body mass index 30+ - obesity 545645532 Completed 202002/20/2021 Problem Code: Z68.43; Problem Code Type: ICD-10; Not Available [facility] 2 22:37:56 Acute sinusiti s 85993285 Completed 202006/06/2021 Problem Code: J01.90; Problem Code Type: ICD-10; Kaelyn Sanchez APRN [address] [place], [address] , [employer] 5 14:07:29 COVID-19 520940300 Completed 202006/06/2021 Problem Code: U07.1; Problem Code Type: ICD-10; ALEKSMERRITT gonzalez [employer] 2 14:24:25 COVID-19 528912220 Completed 202006/06/2021 Problem Code: U07.1; Problem Code Type: ICD-10; ALEKS gonzalez [employer] 14:24:25 Acute tonsilli tis caused by Streptoc occus [id number] 769435 Completed 202007/20/2021 Problem Code: J03.00; Problem Code Type: ICD-10; Not Available [facility] 22:37:51 Influenz a caused by Influenz a A virus [id number] Completed 202105/04/2022 ALEKS GROSSNER carlos, [employer] 14:24:25 COVID-19 020362486 Completed 202105/04/2022 Problem Code: U07.1; Problem Code Type: ICD-10; ALEKS GROSSNER [employer] 14:24:25 Acute sinusiti s 13947665 Completed 202105/04/2022 Problem Code: J01.90; Problem Code Type: ICD-10; Kaelyn Sanchez, [employer] [address] [place] [address], [id number] [facility] [employer] 5 14:07:29 Myositis 20808619 Completed 202105/04/2022 Problem Code: M60.9; Problem Code Type: ICD-10; ALEKS GROSSNER [employer] 14:24:25 Dyspnea 237824875 Completed 202105/04/2022 Problem Code: R06.02; Problem Code Type: ICD-10; ALEKS GROSSNER [employer], [employer] 14:24:25 Finding of sensatio n of nose 294067969 Completed 202105/04/2022 Problem Code: R43.9; Problem Code Type: ICD-10; ALEKS GROSSNER [employer] 14:24:25 Exposure to SARS-CoV -2 Completed 202105/04/2022 Problem Code: Z20.822; Problem Code Type: ICD-10; ALEKS THEREAS null, [employer] 2 14:24:25 Noninfec tious gastroen teritis 14686350 Completed 202105/04/2022 ALEKS GROSSPAM gonzalez, [employer] 2 14:24:25 Umbilica l hernia 044148852 Active 2023 Problem Code: K42.9; Problem Code Type: ICD-10; Bia Santiago NP [address] [place] [address], [phone] , [employer] 4 14:40:56 Type 2 diabetes mellitus without complica tion 137033643 Active 2023 Kaelyn Sanchez APRN [address] [place] [address], [address] [place] [address] , [employer] 5 12:09:41 Essentia l hyperten artemio 52380225 Active 2023 Kaelyn Sanchez APRN [address] [place] [address], [address] [place] [address] , [employer] 5 11:42:00 Gastroes ophageal reflux disease without esophagi tis 482417041 Active 2024 Bia Santiago NP [address] [place] [address], [phone] , [employer] 5 14:14:09 Streptoc occal sore throat 32238403 Active 2024 Bia Santiago NP [address] [place] [address], [phone] , [employer] 5 14:41:39 Sore throat 874303933 Active 2024 Bia Santiago NP [address] [place] [address], [id number] , [employer] 5 14:41:40 Type 2 diabetes mellitus 47300301 Active 2024 Kaelyn Sanchez APRN [address] [place] [address], [address] , [employer] 5 14:14:00 Recurren t sinusiti s 826063577 Active 2024 Kaelyn Sanchez APRN [address] [place] [address], [address] [place] [address] , [employer] 5 14:18:29 Fatigue 34470215 Active 2024 Kaelyn Sanchez APRN [address] [place] [address], [address] [place] [address] , [employer] 5 11:49:34 Acquired hypothyr oidism 004995733 Active 2024 Kaelyn Sanchez APRN [address] [place] [address], [address] [place] [address] , [employer] 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 5 11:46:25 Problem Notes None recorded. Procedures Surgical History Date Name Laterality Status Provider Name and Address Organization Details Recorded Time 5 Skin Tag Removal completed Kaelyn Sanchez APRN [address] [place] [address], [address] [place] [address], [employer] 07/13/2024 16:37:13 4 Cerumen Removal completed Kaelyn Sanchez APRN [address] [place] [address], [address] [place] [address], [employer] 07/15/2023 10:09:28 Imaging Results None recorded. Procedure Notes None recorded. Medical Equipment None Reported. Allergies Allergen ID Allergen Name Allergen Category Reaction Reaction Severity Criticality Documentation Date Start Date Code Code System Note Provider Name and Address Organization Details Recorded Time 08215 hydrochlo rothiazid e medicatio n other Not available low 02/05/2023 5487 RxNorm GOUT Kaelyn Sanchez APRN [address] [place] [address], [id number], [employer] 3 15:34:21 Medications Name Sig Start [...] propionate 50 mcg/actuat ion nasal spray,susp ension [place] 1 spray into each nostril every day. [...] Allergy 205.5 mcg (0.15 %) nasal spray [place] 1 spray twice a day by intranas [...] Organization Details Last Updated DateTime 187.96 cm 53.6 kg/m2 242664. 17 g 97.9 [degF] 80 /min 96 % 96 % 118/81 mm[Hg] ROSA [employer] 5 13:58:02 Date Recorded Body height Body mass index (BMI) Body weight Body temperature Heart rate Oxygen saturation Oxygen saturation in Arterial blood by Pulse oximetry Systolic And Diastolic Provider Name and Address Organization Details Last Updated DateTime 5 187.96 cm 50.6 kg/m2 154038. 39 g 97.2 [degF] 86 /min 96 % 96 % 117/80 mm[Hg] ROSA [employer] 5 11:40:13 Date Recorded Body height Body mass index (BMI) Body weight Body temperature Heart rate Oxygen saturation Oxygen saturation in Arterial blood by Pulse oximetry Systolic And Diastolic Provider Name and Address Organization Details Last Updated DateTime 5 187.96 cm 52.6 kg/m2 193860. 15 g 97 [degF] 85 /min 95 % 95 % 138/82 mm[Hg] ROSA [employer] 5 11:31:47 Social History Question Answer Notes LastModified by Organizat ion Details LastModified Time Tobacco Smoking Status Former Smoker Mary gonzalez, [employer] 01/20/2024 16:04:43 Do You Have An Advance Directive? No [email or web address] Information not available 05/04/2022 Is Your Home Air Conditioned? Yes Information not available 11/21/2022 Do You Wear A Helmet When Biking? No [email or web address] Information not available 06/11/2024 Are You Blind Or Do You Have Difficulty Seeing? No [email or web address] Information not available 05/04/2022 Are You A Caregiver? No Information not available 02/13/2023 In The 14 Days Before Symptom Onset, Have You Had Close Contact With A Laboratory-confir med COVID-19 While That Case Was Ill? No [email or web address] Information not available 05/04/2022 In The 14 Days Before Symptom Onset, Have You Had Close Contact With A Person Who Is Under Investigation For COVID-19 While That Person Was Ill? No Information not available 05/04/2022 Have You Been To An Area Known To Be High Risk For COVID-19? No [email or web address] Information not available 05/04/2022 Are You Deaf Or Do You Have Serious Difficulty Hearing? No [email or web address] Information not available 05/04/2022 What Type Of Diet Are You Following? REGULAR [email or web address] Information not available 06/11/2024 Who Is Your Employer? [employer] [email or web address] Information not available 01/15/2024 Have There Been Any Changes To Your Family Or Social Situation? No [email or web address] Information no t available 02/13/2023 When Did You Quit Smoking? 1-5yearssincel [email or web address] Information not available 01/28/2024 Are There Any Guns Present In Your Home? Yes [email or web address] Information not available 05/04/2022 Which Of Your Hands Is Dominant? Right Information not available 12/19/2022 Do You Have A Medical Power Of Investment Underwriter? No [email or web address] Information not available 05/04/2022 What Was The Date Of Your Most Recent Tobacco Screening? 03/16/2025 Information not available 03/16/2025 What Is Your Current Pack Years? 10-19packyears Information not available 01/28/2024 Do You Have Any Pets? Yes Information not available 02/13/2023 What Is Your Relationship Status? [email or web address] Information not available 05/04/2022 Do You Use Your Seat Belt Or Car Seat Routinely? Yes [email or web address] Information not available 05/04/2022 Are You Sexually Active? Yes [email or web address] Information not available 06/11/2024 Do You Have Smoke And Carbon Monoxide Detectors In Your Home? Yes Information not available 11/21/2022 Are You Passively Exposed To Smoke? No Information no t available 11/21/2022 Are There Any Smokers In Your House? No Information not available 11/21/2022 Do You Participate In Social Media? Yes Information not available 06/11/2024 Do You Use Sunscreen Routinely? No [email or web address] Information not available 05/04/2022 Has Tobacco Cessation Counseling Been Provided? No [email or web address] Information not available 02/13/2023 Have You Recently Traveled Abroad? No [email or web address] Information not available 05/04/2022 Do You Have Difficulty Walking Or Climbing Stairs? No [email or web address] Information not available 05/04/2022 Are You Currently In School? No [email or web address] Information not available 05/04/2022 Do You Have Any Dietary Restrictions? No [email or web address] Information not available 06/11/2024 Sex: Male Functional Status Question Answer Note LastModified by Organizat ion Details LastModified Time Do you use any illicit or recreational drugs? No Information not available 02/13/2023 Do you or have you ever used any other forms of tobacco or nicotine? No [email or web address] Information not available 02/08/2024 What is your level of alcohol consumption? None [email or web address] Information not available 05/04/2022 Do you or have you ever used smokeless tobacco? Current snuff user [email or web address] Information not available 05/04/2022 Are you currently employed? Yes [email or web address] Information not available 02/13/2023 Do you have transportation difficulties? No [email or web address] Information not available 05/04/2022 Are you able to walk independently without assistance or assistive devices? YESWOREST [email or web address] Information not available 05/04/2022 Do you have difficulty doing errands alone? No [email or web address] Information not available 05/04/2022 Are you able to care for yourself independently? Yes [email or web address] Information not available 05/04/2022 Do you have difficulty dressing, bathing, grooming, or toileting? No [email or web address] Information not available 05/04/2022 Do you or have you ever used e-cigarettes or vape? Never used electronic cigarettes [email or web address] Information not available 02/13/2023 Mental Status Question Answer Note LastModified by Organizat ion Details LastModified Time Do you feel stressed (tense, restless, nervous, or anxious, or unable to sleep at night)? YE1193-0 [email or web address] Information not available 06/11/2024 Do you have difficulty concentrating, remembering or making decisions? No [email or web address] Information no t available 05/04/2022 Family History Relationship Description Onset Age of this Age Resolved Age Notes LastModified by Organization Details LastModified Time Sister Family history of breast cancer [email or web address] Not available 11/2022 14:20:18 Mother Family history of Hypertension [email or web address] Not available 02/13/2023 14:20:27 Mother Family history of diabetes mellitus type 2 [email or web address] Not available 11/2022 14:21:09 Father Family history of alcoholism [email or web address] Not available 14:20:41 Paternal Grandmother Family history of Anxiety state Not available 11/2022 14:20:51 Maternal Grandmother Family history of breast cancer [email or web address] Not available 11/2022 14:20:22 Medical History Condition Response Emergency room visit since last appointm ent. N Obesity Y Acid Reflux (GERD) Y Allergies/Hayfever N Hospitalizations N Acne N Diabetes Y Hypertension Y Immunizations Vaccine Type Date Status Note Provider Nam e and Address Organization Details Recorded Time Tdap 5 completed Not Available [employer] 02/13/2022 23:17:26 Tdap 1 completed ALEKS gonzalez, [employer]. 05/04/2022 14:34:20 Td (adult), 2 Lf tetanus toxoid, preservative free, adsorbed 4 completed ALEKS gonzalez, [employer]. 05/04/2022 14:34:20 Hep B, adolescent or pediatric 3 completed ALEKS CARDENAS null, [employer]. 05/04/2022 14:34:20 Hep B, adolescent or pediatric 2 completed ALEKS gonzalez, [employer]. 05/04/2022 14:34:20 Influenza, split virus, trivalent, preservative 0 completed ALEKS CARDENAS null, [employer] 05/04/2022 14:34:20 MMR 2 completed ALEKS gonzalez, [employer] 05/04/2022 14:34:20 Hep B, adolescent or pediatric 2 completed ALEKS GROSSNER carlos, [place] [employer] 05/04/2022 14:34:20 varicella 2 completed ALEKS THERESA carlos, [place] [employer] 05/04/2022 14:34:20 Influenza, split virus, trivalent, preservative 9 completed ALEKS gonzalez, [place] [employer] 05/04/2022 14:34:20 Past Encounters Encounter ID Performer Location Encounter Start Date Encounter Closed Date Diagnosis/Indication Diagnosis SNOMED-CT Code Diagnosis ICD10 Code Diagnosis IMO Codes Diagnosis [place] [id number] [place] [address] 05/04/2022 14:18:01 05/04/2022 14:55:54 Uncontrolled type 2 diabetes mellitus 550619173 E11.65 Continue current medication s, ADA diet and exercise emphasized . Essential hypertension 75869706 I10 [id number] [place] [address] 0 11/21/2022 15:32:46 11/21/2022 17:04:47 Type 2 diabetes mellitus without complication 570470897 E11.9 Has great A1c vontrol right now. Vitamin D deficiency 347 43706 E55.9 Essential hypertension 70474216 I10 DASH diet, exercise, continue weight loss efforts. [facility] 438555111 Z00.00 Body mass index 40+ - severely obese 022655383 Z68.42 Impacted c erumen of bilateral ears 6319895399 064648 H61.23 Allergic rhinitis 622877 04 J30.9 Restart allergy meds. Gastroesop hageal reflux disease without esophagitis 783820389 K21.9 Chronic post-traumatic stress disorder 861091683 F43.12 I have given him resources today to consider a medical marijuana card in [place]. [id number] Kaelyn Sanchez [address] 0 12/19/2022 16:24:24 12/19/2022 17:18:40 Type 2 diabetes mellitus without complication 765470919 E11.9 Reduce metformin to 500 mg 1 tablet daily with a meal. Instructed on importance of eating regular meals with protein. Pain in right foot 40469 96269 65020 M79.671 [place] on right 4th toe that is painful and he is diabetic. We will schedule him for diabetic foot exam. He was encouraged to wear supportive insoles and shoes with wide toe boxes. [id number] [place] [id number] 12/26/2022 14:15:45 12/26/2022 16:45:35 Pain in throat 529803168 R07.0 Acute sinusitis 41131385 J01.90 Patient likely has an acute bacterial sinusitis. Will treat as below. No signs of preseptal or orbital cellulitis , meningismu s, or neurologic changes concerning for intracrani al process. Instructed family to monitor patient closely and call office for any of these symptoms. Supportive care reviewed: raising HOB, humidifier use, saline nasal spray, rest, encourage PO fluids and monitor hydration status, infection control measures. Recommende d acetaminop hen/ibupro fen PRN pain, fever; reviewed appropriat e doses. Follow-up as below. He may RTW on 12/29/22. [id number] [place] [id number] 01/15/2023 09:02:39 01/15/2023 09:54:56 Gout 13184351 M10.9 Left ankle, RTW 01/17/2023. Low purine diet and increasing oral fluids was d/w pt today. [id number] Kaelyn Sanchez [address] [address] 02/05/2023 14:23:23 02/05/2023 16:09:49 Primary gout 37894891 M10.00 LEFT foot. Stop HCTZ, start daily allopurino l, give IM steroid today. Stop eating beef, pork and yeast breads. Take tart black calero juice supplement daily. RTW 8/31/23. Push water intake. [id number] LIO [place], [facility] [address] 02/13/2023 13:30:34 02/13/2023 14:56:23 Viral screening 928066382 Z11.59 Type 2 tracy betes mellitus 74528057 E11.9 Viral syndrome 505236021 B34.9 [id number] Kaelyn Sanchez [place] [address] 0 03/20/2023 12:46:03 03/20/2023 17:47:40 Uncontrolled type 2 diabetes mellitus 356580583 E11.65 Continue current medication s, ADA diet and exercise emphasized . Essential hypertension 90363449 I10 DASH diet, exercise, continue weight loss efforts. Reducible umbilical hernia 494701669 K42.9 He defers surgical consult for now. Weight loss and avoiding lifting was emphasized . Generalize d anxiety disorder 85794413 F41.1 Primary gout 22793478 M1 0.00 Improved with allopurino l.. Gastroesop hageal reflux disease without esophagitis 775941949 K21.9 Type 2 tracy betes mellitus without complication 001777618 E11.9 Reduce metformin to 500 mg 1 tablet daily with a meal. Instructed on importance of eating regular meals with protein. [id number] Kaelyn Sanchez [place] [address] 0 06/18/2023 11:22:03 06/18/2023 12:11:43 Allergic rhinitis 02620489 J30.9 Restart allergy meds. Type 2 tracy betes mellitus without complication 736705592 E11.9 No med changes today. DM diet and exercise again encouraged . Deficiency of vitamin D3 782211344 E55.9 Body mass index 40+ - severely obese 336418192 Z68.42 Acute sinusitis 13341639 J01.90 Patient likely has an acute bacterial sinusitis. Will treat as below.No signs of preseptal or orbital cellulitis , meningismu s, or neurologic changes concerning for intracrani al process. Instructed family to monitor patient closely and call office for any of these symptoms.S upportive care reviewed: raising HOB, humidifier use, saline nasal spray, rest, encourage PO fluids and monitor hydration status, infection control measures.R ecommended acetaminop hen/ibupro fen PRN pain, fever; reviewed appropriat e doses.Foll ow-up as below. Essential hypertension 72774319 I10 DASH diet, exercise, continue weight loss efforts. [id number] Kaelyn Sanchez [employer] [place] [address] 0 07/15/2023 09:47:18 07/15/2023 10:27:23 Acute sinusitis 31258821 J01.90 Patient likely has an acute bacterial sinusitis. Will treat as below.No signs of preseptal or orbital cellulitis , meningismu s, or neurologic changes concerning for intracrani al process. Instructed family to monitor patient closely and call office for any of these symptoms.S upportive care reviewed: raising HOB, humidifier use, saline nasal spray, rest, encourage PO fluids and monitor hydration status, infection control measures.R ecommended acetaminop hen/ibupro fen PRN pain, fever; reviewed appropriat e doses.Foll ow-up as below. Impacted c erumen in right ear 3844506229 948934 H61.21 [id number] Kaelyn Sanchez [place] [address] 0 07/23/2023 14:20:16 07/23/2023 15:01:11 Neoplasm of uncertain behavior of soft tissues 13986301 D48.19 Left anterior neck nodule. Reassuranc e given. Likely a benign lymph node but will obtain US. [id number] Kaelyn Sanchez [employer] [place] [address] 0 09/16/2023 14:05:19 09/16/2023 15:08:47 Type 2 diabetes mellitus without complication 578618957 E11.9 No med changes today. DM diet and exercise again encouraged . [id number] Bia Santiago NP [place] [address] 0 01/15/2024 13:57:58 01/15/2024 15:50:47 Abdominal pain 96061144 R10.9 External hemorrhoids 239 52168 K64.4 Umbilical hernia 3659081 07 K42.9 Gout 68089211 M10.9 [id number] Bia Santiago, JANET [place] [address] 0 01/20/2024 15:49:07 01/20/2024 16:44:47 Acute sinusitis 05736883 J01.90 [id number] Kaelyn Sanchez [place] [address] 0 01/28/2024 12:35:31 01/28/2024 14:06:44 Type 2 diabetes mellitus without complication 653530186 E11.9 No med changes today. DM diet and exercise again encouraged . Umbilical hernia 9806143 07 K42.9 He declines referral to surgeon at this time. D/w etiology of hernia, lifting precuation s, alarm sx. Constipation 12369624 K5 9.00 Needs refill on Miralax. Body mass index 40+ - severely obese 599193677 Z68.42 [id number] Suze John [place] [address] 0 02/08/2024 10:52:10 02/08/2024 11:56:27 Sore throat 986993442 J02.9 Fever 130465371 R50.9 Viral resp iratory infection 950733273 J06.9 Body mass index 40+ - severely obese 443992437 Z68.43 [id number] Kaelyn Sanchez [place] [address] 0 02/17/2024 14:17:52 02/17/2024 15:10:16 COVID-19 129688283 U07.1 Patient presented with symptoms of upper respirator y infection. Advised to drink plenty of fluids, run a cool-mist humidifier in room at night, gargle salt water for sore throat, and get plenty of rest. Patient should avoid over-exert ion and reduce exposure to irritants such as smoke, cold, dry air, and dust. Treatment currently involves symptomati c relief. Patient may take acetaminop hen or ibuprofen as directed to reduce fever and body aches. Antihistam ine and decongesta nt usage was discussed and recommenda tions made. Patient understood these instructio ns and will follow up in the office in 10 days to 2 weeks if symptoms not improving. [id number] [place] [address] 04/06/2024 09:37:44 04/06/2024 10:45:16 Sore throat 405240031 J02.9 Influenza caused by Influenza B virus 17267235 J10.1 RTW 04/10/24Pat ient presented with symptoms of upper respirator y infection. Advised to drink plenty of fluids, run a cool-mist humidifier in room at night, gargle salt water for sore throat, and get plenty of rest. Patient should avoid over-exert ion and reduce exposure to irritants such as smoke, cold, dry air, and dust. Treatment currently involves symptomati c relief. Patient may take acetaminop hen or ibuprofen as directed to reduce fever and body aches. Antihistam ine and decongesta nt usage was discussed and recommenda tions made. Patient understood these instructio ns and will follow up in the office in 10 days to 2 weeks if symptoms not improving. [id number] Suze Lopez [place] [address] 0 2024 08:43:58 2024 09:52:42 Sore throat 038007700 J02.9 Acute pharyngitis 555406 003 J02.9 Body mass index 40+ - severely obese 008723556 Z68.43 [id number] Kaelyn Sanchez [place] [address] 0 04/20/2024 16:30:29 04/20/2024 17:06:28 Primary gout 74946080 M10.00 Left ankle, start allopurino l due to recurrent flares. Type 2 tracy betes mellitus without complication 597480372 E11.9 Start Ozempic at 0.25 mg. DM diet and exercise again encouraged . [id number] Kaelyn Sanchez [employer] [place] [address] 0 05/18/2024 09:14:29 05/18/2024 10:14:23 Type 2 diabetes mellitus without complication 385538230 E11.9 Increase Ozempic to 0.5 mg weekly. DM diet and exercise again encouraged . Vitamin D deficiency 347 23219 E55.9 Essential hypertension 74270570 I10 DASH diet, exercise, continue weight loss efforts. [id number] Bai Santiago NP [place] [address] 0 06/11/2024 12:52:07 06/11/2024 14:35:52 Diarrhea 51024600 R19.7 Viral gastroenteritis 11 1624882 A08.4 Gastroesop hageal reflux disease without esophagitis 165906321 K21.9 [id number] Kaelyn Sanchez [place] [address] 0 07/10/2024 15:34:20 07/10/2024 16:00:45 Primary gout 58682623 M10.00 Left foot. Continue allopurino l and 4 oz tart dark calero juice daily. May take colchicine for next 3 days prn. Again low purine diet was d/w him at length. [id number] Kaelyn Sanchez APRN [place] [address] 0 07/13/2024 12:35:39 07/13/2024 13:43:36 Skin tag 719407162 L91.8 Left cheek. Wound care inst were given and explained. Monitor and any report s/s of infection. [id number] Kaelyn Sanchez APRN [place] [address] 0 09/14/2024 13:28:10 09/14/2024 14:47:29 Type 2 diabetes mellitus without complication 734204787 E11.9 DM diet and exercise again encouraged . Could not tolerate Ozempic due to nausea and GERD. Will try low dose Mounjaro. No changes to oral med regimen today. Will refer for DM Foot care consult. Essential hypertension 68226537 I10 DASH diet, exercise, continue weight loss efforts. Body mass index 40+ - severely obese 360947938 Z68.42 Allergic rhinitis 263816 04 J30.9 Flonase no longer effective, trial dante [id number] Bia PlattyJANET [place] [address] 0 09/17/2024 14:06:32 09/17/2024 15:21:04 Sore throat 190397846 J02.9 Streptococ kristina sore throat 50052341 J02.0 [id number] Kaelyn FamerJOSE [place] [address] 0 11/11/2024 13:43:18 11/11/2024 15:53:57 Gastroesophageal reflux disease without esophagitis 587979143 K21.9 Increase pepcid and prilosec. Type 2 tracy betes mellitus 85156898 E11.9 25879525 Restart Ozempic, use of med and potential side effects explained. He was instructed to eat smaller frequent low carb meals with adequate protein and remain upright for one hour after eating. Recurrent sinusitis 1956 26922 J32.9 021515 Patient likely has an acute bacterial sinusitis. Will treat as below. No signs of preseptal or orbital cellulitis , meningismu s, or neurologic changes concerning for intracrani al process. Instructed family to monitor patient closely and call office for any of these symptoms. Supportive care reviewed: raising HOB, humidifier use, saline nasal spray, rest, encourage PO fluids and monitor hydration status, infection control measures. Recommende d acetaminop hen/ibupro fen PRN pain, fever; reviewed appropriat e doses. Follow-up as below. [id number] Kaelyn Sanchez [employer] [place] [id number] 0 03/02/2025 11:13:12 03/02/2025 12:35:24 Type 2 diabetes mellitus without complication [id number] E11.9 Increase Ozempic 0.5 mg, DM diet and exercise encouraged . No other med changes today. Essential hypertension 56539512 I10 DASH diet, exercise, continue weight loss efforts. Vitamin D deficiency 347 05111 E55.9 98217 Body mass index 40+ - severely obese [id number] Z68.43 [id number] [facility] [id number] R53.83 [id number] [place] [id number] 0 03/16/2025 11:21:58 03/16/2025 12:45:34 Acquired hypothyroidism 630893502 E03.9 36267 Start Synthroid Male hypogonadism 881538 06 E29.1 [id number] Start biweekly testostero ne injections for 3 months, mich reviewed, UDS and PSA obtained. assisted controlled substance agreement obtained. Vitamin D deficiency 347 55138 E55.9 56833 Start ergocal weekly for 3 months. Long-term current use of drug therapy [id number] Z79.345 [id number] [place] [id number] 0 03/29/2025 09:42:14 03/29/2025 10:11:54 Male hypogonadism 87578547 E29.1 [id number] Start biweekly testostero ne injections for 3 months, mich reviewed, UDS and PSA obtained. assisted controlled substance agreement obtained. [id number] [place] [id number] 0 04/12/2025 13:28:29 04/12/2025 14:00:16 Male hypogonadism 47813403 E29.1 [id number] Start biweekly testostero ne injections for 3 months, mich reviewed, UDS and PSA obtained. [employer] controlled substance agreement obtained. Health Concerns Section Related Observation LastModified by Organization Detai ls LastModified Time None Recorded Concern Status LastModified by Organization Details LastModified Time None Recorded Advance Directives Directive N: Payers Insurance Date Sequence Insurance Name Policy Number Policy Gomez Covered Member ID Gomez Member ID Guarantor Name 12/12/2022 1 *SELF PAY* Varun Munoz 12/14/2022 SLIDING FEE SCHEDULE - DISCOUNT Bob Munoz 04/12/2025 1 [facility] (MEDICAID REPLACEMENT - HMO) Bob Munoz [id number] Bob Munoz 01/17/2023 1 UNSPECIFIED REMIT PAYOR Bob Munoz 04/12/2025 [facility]ICA[facility] WRAP BILLING (MEDICAID) Bob Munoz [id number] Bob Munoz 06/11/2024 1 [facility] [facility] (MEDICAID HMO) Bob Munoz [id number] Bob Munoz 04/26/2022 1 *SELF PAY* Ja salvador Munoz Notes Date Note Type Note Provider Name and Address Organization Details Recorded Time 5 text/html Diabetes F/UReported by PatientHPIFor context, patient reportsnot seeing eye doctor yearlyandnot checking feet regularlybut reportstaking aspirin daily,not missing doses of medications, andno side effects from medications. For associated symptoms, patient reportscalluses on feetbut reportsno weight gain,no weight loss,no dizziness,no sweats,no headaches,no confusion,no increased thirst,no increased appetite,no increased urination,no blurred vision, andno numbness of feet. For labs, patient reportslast a1c result: 7.9. For review finger sticks, (does not check glucose).Was unable to tolerate Ozempic initially due to GERD sx so he stopped med, but he would really like to have more success with weight loss and DM control so he is asking to restart med. He admits to eating large meals right before bed about 2 am.ROS as noted in the HPI He also complains of persistent sinus sx since September despite using claritin and flonase daily. Kaelyn Sanchez, [employer] [address] [place], [phone], [place] [email or web address] 11/11/2024 14:43:12 5 text/html ROS as noted in the HPI Chief ComplaintFollow-up for diabetes management and weight loss, fatigue and tiredness, request for testosterone level checkHistory of Present IllnessJasalvador Munoz returns for follow-up of diabetes management and weight loss, reporting continued progress since his last visit in November. He has lost an additional 23 pounds since November and reports his appetite is being curbed by his current Ozempic regimen. He is currently taking Ozempic 0.25 milligrams and has completed two pens at this dose. He reports that unless he eats something spicy, he is not experiencing the severe heartburn he had previously. The patient acknowledges that he self-medicates with THC for anxiety and notes that eating dinner late at night (before 12 o'clock) contributes to his challenges with weight management.The patient expresses interest in increasing his Ozempic dose to 0.5 milligrams, understanding that he may reach a plateau where the current dose will no longer curb his hunger effectively. He is concerned about potential gastric symptoms with the dose increase but is willing to try the higher dose.Additionally, the patient reports feeling tired all the time and describes feeling like he could lay down and go to sleep but cannot, while also staying up all night. He attributes this fatigue to potentially low testosterone levels and requests testing, hoping for treatment to boost his energy.Regarding his gout management, the patient reports he is not taking allopurinol and instead tries to watch what he eats. He had a recent mild flare-up for which he called and received colchicine (purple pills), taking one dose which resolved the episode. He notes that gout episodes have not been nearly as bad since losing weight. Kaelyn Sanchez APRN [address] [place], [address], [employer]. 03/02/2025 12:10:40 5 text/html ROS as noted in the HPI Chief ComplaintFatigueHistory of Present IllnessBob Munoz presents with fatigue and for lab review. He reports feeling very tired, stating I could go sleep right now. I feel tired. I'm so tired. The patient mentions difficulty losing weight despite his efforts, suggesting this may be related to his fatigue. Kaelyn Sanchez APRN [address] [place], [address], [employer]. 03/16/2025 15:57:10
--- OUTSIDE RECORDS SUMMARY | 2025-04-25 10:19 | XMS_ITS | Continuity of Care Document ---
Author Organization [place] - [employer], [place] [facility] Address [address] [place] [address] Assessment No assessment recorded. Plan of Treatment Reminders Order Date Submit Date Provider Last Modified By Organization Details Last Modified Time Details Appointments FOLLOW UP 30 2025 08:00A Anand Sanchez APRN Not available Not available Not available Lab TSH, ultra-sen sitive, serum 2024 025 [place] [facility] [address] [place], [address], 03/03/2025 13:08:27 vitamin D, 25-hydrox y, total, serum 2024 025 [place] [facility]), [facility] [place], [address], 03/03/2025 13:08:26 HbA1c (hemoglob in A1c), blood [email or web address] [facility], [address] [place], [address], 03/02/2025 11:44:41 lipid panel, serum 2024 025 [place] [facility] [address] [place], [address], 03/03/2025 13:08:24 albumin/c reatinine , mass ratio, urine 2024 025 [place] [facility] [address] [place], [address], 03/03/2025 13:08:25 CBC w/ auto diff 2024 025 [place] [facility] [address] [place], [address], 03/03/2025 13:08:24 CMP, serum or plasma 2024 025 [place] [facility] [address] [facility], [place], [address], 03/03/2025 13:08:23 testoster one, total, serum 2024 025 [place] [facility] [address] [facility], [place], [address], 03/03/2025 13:08:26 Referral None recorded. Procedures None recorded. Surgeries None recorded. Imaging None recorded. Medication Orders Ozempic 0.25 mg or 0.5 mg (2 mg/3 mL) subcutane ous pen injector 2024 025 [facility], [address] [place] [address], [address], 04/03/2025 09:37:17 Patient TargetsNo targets recorded. Patient InstructionsNo instructions recorded. Reason for Referral None Reported. Results Created Date Observation Date Name Description Value Unit Range Abnormal Flag Note LastModifiedBy Organization Detail LastModifiedTime 03/02/2003/03/2025 CMP14 +EGFR glucose 148 mg/dL 70-99 above high normal Not Available [facility] ([facility]) [address] [place], [address], 03/03/2025 13:08:23 03/02/20 25 03/03/2025 CMP14 +EGFR BUN 11 mg/dL 6-20 normal Not Available [facility] ([facility]) [address] [place], [address], 03/03/2025 13:08:23 03/02/20 25 03/03/2025 CMP14 +EGFR creatinine 1.13 mg/dL 0.76-1 .27 normal Not Available [facility] ([facility]) [address] [facility], [place], [address], 03/03/2025 13:08:23 03/02/20 25 03/03/2025 CMP14 +EGFR eGFR 87 mL/mi n/1.7 3 >59 normal Not Available [facility] ([facility]) [address] [facility], [place], [address], 03/03/2025 13:08:23 03/02/20 25 03/03/2025 CMP14 +EGFR BUN/creatini ne ratio 10 9-20 normal Not Available [facility] ([facility]) [address] [facility], [place], [address], 03/03/2025 13:08:23 03/02/20 25 03/03/2025 CMP14 +EGFR sodium 139 mmol/ L 134-14 4 normal Not Available [facility] ([facility]) [address] [place], [address], 03/03/2025 13:08:23 03/02/20 25 03/03/2025 CMP14 +EGFR potassium 4.6 mmol/ L 3.5-5. 2 normal Not Available [facility] ([facility]) [address] [place], [address], 03/03/2025 13:08:23 03/02/20 25 03/03/2025 CMP14 +EGFR chloride 102 mmol/ L 96-106 normal Not Available [facility] ([facility]) [address] [place], [address], 03/03/2025 13:08:23 03/02/20 25 03/03/2025 CMP14 +EGFR carbon dioxide, total 22 mmol/ L 20-29 normal Not Available [facility] ([facility]) [address] [facility], [place], [address], 03/03/2025 13:08:23 03/02/20 25 03/03/2025 CMP14 +EGFR calcium 9.0 mg/dL 8.7-10 .2 normal Not Available [facility] ([facility]) [address] [facility], [place], [address], 03/03/2025 13:08:23 03/02/20 25 03/03/2025 CMP14 +EGFR protein, total 6.9 g/dL 6.0-8. 5 normal Not Available [facility] ([facility]) [address] [facility], [place], [address], 03/03/2025 13:08:23 03/02/20 25 03/03/2025 CMP14 +EGFR albumin 4.1 g/dL 4.1-5. 1 normal Not Available [facility] ([facility]) [address] [facility], [place], [address], 03/03/2025 13:08:23 03/02/20 25 03/03/2025 CMP14 +EGFR globulin, total 2.8 g/dL 1.5-4. 5 Not Available [facility] ([facility]) [address] [facility], [place], [address], 03/03/2025 13:08:23 03/02/20 25 03/03/2025 CMP14 +EGFR bilirubin, total 0.3 mg/dL 0.0-1. 2 normal Not Available [facility] ([facility]) [address] [facility] [place], [address], 03/03/2025 13:08:23 03/02/20 25 03/03/2025 CMP14 +EGFR alkaline phosphatase 116 IU/L 47-123 normal Ple ase note refer ence inter ruperto phillip e Not Available [facility] ([facility]) [address] [facility], [place], [address], 03/03/2025 13:08:23 03/02/20 25 03/03/2025 CMP14 +EGFR AST (SGOT) 14 IU/L 0-40 normal Not Available [facility] ([facility]) [address] [place], [address], 03/03/2025 13:08:23 03/02/20 25 03/03/2025 CMP14 +EGFR ALT (SGPT) 18 IU/L 0-44 normal Not Available [facility] ([facility]) [address] [place], [address], 03/03/2025 13:08:23 03/02/20 25 03/03/2025 CBC WITH DIFFE RENTI AL/PL ATELE T WBC 7.4 x10e3 /uL 3.4-10 .8 normal Not Available [facility] ([facility]) [address] [place], [address], 03/03/2025 13:08:24 03/02/20 25 03/03/2025 CBC WITH DIFFE RENTI AL/PL ATELE T RBC 4.77 x10e6 /uL 4.14-5 .80 normal Not Available [facility] ([facility]) [address] [place], [address], 03/03/2025 13:08:24 03/02/20 25 03/03/2025 CBC WITH DIFFE RENTI AL/PL ATELE T hemoglobin 12.0 g/dL 13.0-1 7.7 below low normal Not Available [facility] ([facility]) [address] [place], [address], 03/03/2025 13:08:24 03/02/20 25 03/03/2025 CBC WITH DIFFE RENTI AL/PL ATELE T hematocrit 39.8 % 37.5-5 1.0 normal Not Available [facility] ([facility]) [address] [place], [address], 03/03/2025 13:08:24 03/02/20 25 03/03/2025 CBC WITH DIFFE RENTI AL/PL ATELE T MCV 83 fL 79-97 normal Not Available [facility] ([facility]) [address] [facility], [place], [address], 03/03/2025 13:08:24 03/02/20 25 03/03/2025 CBC WITH DIFFE RENTI AL/PL ATELE T MCH 25.2 pg 26.6-3 3.0 below low normal Not Available [facility] ([facility]) [address] [facility], [place], [address], 03/03/2025 13:08:24 03/02/20 25 03/03/2025 CBC WITH DIFFE RENTI AL/PL ATELE T MCHC 30.2 g/dL 31.5-3 5.7 below low normal Not Available [facility] ([facility]) [address] [facility], [place], [address], 03/03/2025 13:08:24 03/02/20 25 03/03/2025 CBC WITH DIFFE RENTI AL/PL ATELE T RDW 13.7 % 11.6-1 5.4 Not Available [facility] ([facility]) [address] [facility], [place], [address], 03/03/2025 13:08:24 03/02/20 25 03/03/2025 CBC WITH DIFFE RENTI AL/PL ATELE T platelets 252 x10e3 /uL 150-45 0 normal Not Available [facility] ([facility]) [address] [place], [address], 03/03/2025 13:08:24 03/02/20 25 03/03/2025 CBC WITH DIFFE RENTI AL/PL ATELE T neutrophils 60 % not estab. normal Not Available [facility] ([facility]) [address] [place], [address], 03/03/2025 13:08:24 03/02/20 25 03/03/2025 CBC WITH DIFFE RENTI AL/PL ATELE T lymphs 26 % not estab. normal Not Available [facility] ([facility]) [address] [facility], [place], [address], 03/03/2025 13:08:24 03/02/20 25 03/03/2025 CBC WITH DIFFE RENTI AL/PL ATELE T monocytes 7 % not estab. normal Not Available [facility] ([facility]) [address] [facility], [place], [address], 03/03/2025 13:08:24 03/02/20 25 03/03/2025 CBC WITH DIFFE RENTI AL/PL ATELE T eos 5 % not estab. normal Not Available [facility] ([facility]) [address] [facility], [place], [address], 03/03/2025 13:08:24 03/02/20 25 03/03/2025 CBC WITH DIFFE RENTI AL/PL ATELE T basos 1 % not estab. normal Not Available [facility] ([facility]) [address] [facility], [place], [address], 03/03/2025 13:08:24 03/02/20 25 03/03/2025 CBC WITH DIFFE RENTI AL/PL ATELE T immature cells MEDICAL RADIATION TECH Not Available [facility] ([facility]) [address] [facility], [place], [address], 03/03/2025 13:08:24 03/02/20 25 03/03/2025 CBC WITH DIFFE RENTI AL/PL ATELE T neutrophils (absolute) 4.5 x10e3 /uL 1.4-7. 0 normal Not Available [facility] ([facility]) [address] [facility], [place], [address], 03/03/2025 13:08:24 03/02/20 25 03/03/2025 CBC WITH DIFFE RENTI AL/PL ATELE T lymphs (absolute) 1.9 x10e3 /uL 0.7-3. 1 normal Not Available [facility] ([facility]) [address] [place], [address], 03/03/2025 13:08:24 20 25 03/03/2025 CBC WITH DIFFE RENTI AL/PL ATELE T monocytes(ab solute) 0.5 x10e3 /uL 0.1-0. 9 normal Not Available [facility] ([facility]) [address] [facility], [place], [address], 03/03/2025 13:08:24 03/02/20 25 03/03/2025 CBC WITH DIFFE RENTI AL/PL ATELE T eos (absolute) 0.4 x10e3 /uL 0.0-0. 4 normal Not Available [facility] ([facility]) [address] [place], [address], 03/03/2025 13:08:24 03/02/20 25 03/03/2025 CBC WITH DIFFE RENTI AL/PL ATELE T baso (absolute) 0.1 x10e3 /uL 0.0-0. 2 normal Not Available [facility] ([facility]) [address] [place], [address], 03/03/2025 13:08:24 03/02/20 25 03/03/2025 CBC WITH DIFFE RENTI AL/PL ATELE T immature granulocytes 1 % not estab. Not Available [facility] ([facility]) [address] [place], [address], 03/03/2025 13:08:24 03/02/20 25 03/03/2025 CBC WITH DIFFE RENTI AL/PL ATELE T immature grans (abs) 0.1 x10e3 /uL 0.0-0. 1 Not Available [facility] ([facility]) [address] [place], [address], 03/03/2025 13:08:24 03/02/20 25 03/03/2025 CBC WITH DIFFE RENTI AL/PL ATELE T NRBC MEDICAL RADIATION TECH Not Available [facility] ([facility]) [address] [facility], [place], [address], 03/03/2025 13:08:24 03/02/20 25 03/03/2025 CBC WITH DIFFE RENTI AL/PL ATELE T hematology comments: MEDICAL RADIATION TECH Not Available [facility] ([facility]) [address] [facility], [place], [address], 03/03/2025 13:08:24 03/02/20 25 03/03/2025 LIPID PANEL cholesterol, total 136 mg/dL 100-19 9 normal Not Available [facility] ([facility]) [address] [place], [address], 03/03/2025 13:08:24 03/02/20 25 03/03/2025 LIPID PANEL triglyceride s 210 mg/dL 0-149 above high normal Not Available [facility] ([facility]) [address] [place], [address], 03/03/2025 13:08:24 03/02/20 25 03/03/2025 LIPID PANEL HDL cholesterol 29 mg/dL >39 below low normal Not Available [facility] ([facility]) [address] [place], [address], 03/03/2025 13:08:24 03/02/20 25 03/03/2025 LIPID PANEL VLDL cholesterol kristina 35 mg/dL 5-40 Not Available [facility] ([facility]) [address] [place], [address], 03/03/2025 13:08:24 03/02/20 25 03/03/2025 LIPID PANEL LDL chol calc ([facility]) 72 mg/dL 0-99 Not Available [facility] ([facility]) [address] [place], [address], 03/03/2025 13:08:24 03/02/20 25 03/03/2025 LIPID PANEL LDL calc comment: MEDICAL RADIATION TECH Not Available [facility] ([facility]) [address] [facility], [place], [address], 03/03/2025 13:08:24 03/02/20 25 03/03/2025 ALBUM IN/CR EATIN INE RATIO ,URIN E creatinine, urine 148.7 mg/dL not estab. normal Not Available [facility] ([facility]) [address] [place], [address], 03/03/2025 13:08:25 03/02/20 25 03/03/2025 ALBUM IN/CR EATIN INE RATIO ,URIN E albumin, urine 8.5 ug/mL not estab. Not Available [facility] ([facility]) [address] [place], [address], 03/03/2025 13:08:25 03/02/20 25 03/03/2025 ALBUM IN/CR EATIN INE RATIO ,URIN E alb/creat ratio 6 mg/g_ creat 0-29 Kat l: 0 - 29 Moder ately incre ased: 30 - 300 Sever oleg incre ased: >300 Not Available [facility] ([facility]) [address] [place], [address], 03/03/2025 13:08:25 03/02/2003/03/2025 TESTO STERO NE testosterone 191 NG/dL 264-91 6 below low normal Adult male refer ence inter ruperto is based on a popul ation of healt hy nonob manjula males (BMI <30) betwe en 19 and 39 years old. Joy catherine et.al . JCEM 2017, 102;1 161-1 173. PMID: 49600 103. Not Available [facility] ([facility]) [address] [place], [address], 03/03/2025 13:08:25 03/02/20 25 03/03/2025 VITAM IN [...] 1. IOM (Inst itute of Medic ine). 2009. Jakuba ry refer ence ari es for calci um and D. Victorina mcgowan [place]: The [facility] . 2. Sulma javier [place], [place] ey [place], Elmer off-F errar i LERMA, et al. Evalu ation , treat ment, and preve ntion of vitam in D defic iency : an Endoc rine Socie ty clini kristina pract ice guide line. JCEM. 2010; 96(7) :1911 -30. Not Available [facility] ([facility]) [address] [place], [address], 03/03/2025 13:08:26 03/02/2003/03/2025 TSH RFX ON ABNOR MAL TO FREE T4 TSH 5.350 uIU/m L 0.450- 4.500 above high normal Not Available [facility] ([facility]) [address] [place], [address], 03/03/2025 13:08:27 03/02/2003/03/2025 TSH RFX ON ABNOR MAL TO FREE T4 T4,free (direct) 0.98 NG/dL 0.82-1 .77 normal Not Available [facility] ([facility]) [address] [place], [address], 03/03/2025 13:08:27 03/02/20 25 03/02/2025 HbA1c (hemo globi n A1c), blood HbA1c 6.3 Not Available [address], [place], [address], 03/02/2025 11:42:14 Result Notes None recorded. Problems Name Problem SNOMED Code Status Onset Date Resolution Date Notes Provider Name and Address Organization Details Recorded Time Hyperten sive disorder 40458951 Completed 201601/24/2017 Problem Code: I10; Problem Code Type: ICD-10; Not Available [facility] 2 22:37:50 Pain in right knee Completed 201602/23/2017 Problem Code: M25.561; Problem Code Type: ICD-10; Not Available [facility] 22:37:52 Benign essentia l hyperten artemio 0881571 Completed 201609/20/2017 Problem Code: 401.1; Problem Code Type: ICD-9; Not Available [facility] 2 22:37:57 Knee pain Completed 201602/23/2017 Problem Code: 719.46; Problem Code Type: ICD-9; Not Available [facility] 22:37:59 Severe obesity [id number] 104 Completed 201609/20/2017 Problem Code: E66.01; Problem Code Type: ICD-10; Not Available [facility] 2 22:37:50 Generali zed anxiety disorder 35141257 Completed 201609/20/2017 Problem Code: F41.1; Problem Code Type: ICD-10; Not Available [facility] 2 22:37:50 Morbid obesity 977831510 Completed 201609/20/2017 Problem Code: 278.01; Problem Code Type: ICD-9; Not Available [facility] 22:37:57 Acute laryngop haryngit is 86342608 Completed 201709/20/2017 Problem Code: J06.0; Problem Code Type: ICD-10; Not Available [facility] 2 22:37:51 Cough 66417944 Completed 201709/20/2017 Problem Code: R05; Problem Code Type: ICD-10; Not Available [facility] 2 22:37:52 Acute upper respirat ory infectio n of multiple sites Completed 201709/20/2017 Problem Code: 465.8; Problem Code Type: ICD-9; Not Available [facility] 2 22:37:58 Body mass index 40+ - severely obese 818303207 Completed 201706/06/2021 Problem Code: V85.43; Problem Code Type: ICD-9; Not Available [facility] 2 22:37:59 Body mass index 30+ - obesity 646173803 Completed 201708/09/2019 Problem Code: Z68.43; Problem Code Type: ICD-10; Not Available [facility] 2 22:38:00 Residual hemorrho idal skin tags 61196723 Completed 201708/09/2019 Problem Code: K64.4; Problem Code Type: ICD-10; Not Available [facility] 2 22:37:52 Heartbur n 30449829 Completed 201712/20/2017 Problem Code: R12; Problem Code Type: ICD-10; Not Available [facility] 2 22:37:53 Body mass index 30+ - obesity 675180852 Completed 201708/09/2019 Problem Code: Z68.43; Problem Code Type: ICD-10; Not Available [facility] 2 22:37:56 External hemorrho ids 94437010 Completed 201706/06/2021 Problem Code: 455.3; Problem Code Type: ICD-9; Kaelyn Sanchez APRN [address] [place] [address], [address] , [facility] [employer] 5 14:07:34 Body mass index 40+ - severely obese 939657781 Completed 201706/06/2021 Problem Code: V85.43; Problem Code Type: ICD-9; Not Available [facility] 2 22:38:01 Allergic rhinitis caused by pollen 61552782 Completed 201704/12/2018 Problem Code: J30.1; Problem Code Type: ICD-10; Not Available [facility] 22:37:51 Body mass index 30+ - obesity 381852009 Completed 201708/09/2019 Problem Code: Z68.43; Problem Code Type: ICD-10; Not Available [facility] 22:37:56 Body mass index 40+ - severely obese 147788137 Completed 201706/06/2021 Problem Code: V85.43; Problem Code Type: ICD-9; Not Available [facility] 22:38:01 Acute frontal sinusiti s 85434570 Completed 201903/07/2020 Problem Code: J01.10; Problem Code Type: ICD-10; Not Available [facility] 22:37:50 Acute bronchit is 42653982 Completed 201903/07/2020 Problem Code: J20.9; Problem Code Type: ICD-10; ALEKS gonzalez [employer] 2 14:24:25 Wheezing 03877962 Completed 201905/04/2022 Problem Code: R06.2; Problem Code Type: ICD-10; ALEKS gonzalez [employer] 2 14:24:25 General examinat ion of patient Completed 201902/20/2021 ALEKS gonzalez [employer] 2 14:24:25 Body mass index 30+ - obesity 397294146 Completed 201901/23/2021 Problem Code: Z68.43; Problem Code Type: ICD-10; Not Available [facility] 22:37:56 Allergic rhinitis 56438779 Active 2019 Problem Code: J30.9; Problem Code Type: ICD-10; Not Available [facility] 2 22:37:51 Umbilica l hernia 854633631 Completed 201907/15/2020 Problem Code: K42.9; Problem Code Type: ICD-10; Bia Jack, JANET [address] [place], [address] , [employer] 4 14:40:56 Body mass index 30+ - obesity 511469788 Active 2019 Problem Code: Z68.43; Problem Code Type: ICD-10; Not Available [facility] 22:37:55 Acute bronchit is 45966427 Completed 202005/04/2022 Problem Code: J20.9; Problem Code Type: ICD-10; ALEKS gonzalez, [employer] 14:24:25 Dizzines s and giddines s 215978722 Completed 202005/04/2022 Problem Code: R42; Problem Code Type: ICD-10; ALEKS gonzalez, [employer] 14:24:25 Vitamin D deficien cy 99500612 Active 2020 Problem Code: E55.9; Problem Code Type: ICD-10; Kaelyn Sanchez APRN [address] [place], [address] , [employer] 5 11:43:28 Tobacco dependen ce caused by chewing tobacco 72639006591 399835 Active 2020 Problem Code: F17.220; Problem Code Type: ICD-10; Not Available [facility] 2 22:37:50 General examinat ion of patient Completed 202005/04/2022 ALEKSMERRITT gonzalez, [employer] 14:24:25 Body mass index 30+ - obesity 666448112 Completed 202002/20/2021 Problem Code: Z68.43; Problem Code Type: ICD-10; Not Available [facility] 2 22:37:56 Acute sinusiti s 86162381 Completed 202006/06/2021 Problem Code: J01.90; Problem Code Type: ICD-10; Kaelyn Sanchez APRN [address] [place], [address] , [employer] 5 14:07:29 COVID-19 027315155 Completed 202006/06/2021 Problem Code: U07.1; Problem Code Type: ICD-10; ALEKS gonzalez, [employer] 2 14:24:25 COVID-19 060205911 Completed 202006/06/2021 Problem Code: U07.1; Problem Code Type: ICD-10; ALEKS gonzalez, [employer] 14:24:25 Acute tonsilli tis caused by Streptoc occus 92481519433 230335 Completed 202007/20/2021 Problem Code: J03.00; Problem Code Type: ICD-10; Not Available [facility] 22:37:51 Influenz a caused by Influenz a A virus 322359613 Completed 202105/04/2022 ALEKS gonzalez, [employer] 14:24:25 COVID-19 596119926 Completed 202105/04/2022 Problem Code: U07.1; Problem Code Type: ICD-10; ALEKS gonzalez, [employer] 14:24:25 Acute sinusiti s 69998672 Completed 202105/04/2022 Problem Code: J01.90; Problem Code Type: ICD-10; Kaelyn Sanchez APRN [address] [place], [address] , [employer] 5 14:07:29 Myositis 30808476 Completed 202105/04/2022 Problem Code: M60.9; Problem Code Type: ICD-10; ALEKS gonzalez, [employer] 2 14:24:25 Dyspnea 484840265 Completed 202105/04/2022 Problem Code: R06.02; Problem Code Type: ICD-10; ALEKS gonzalez, [employer] 2 14:24:25 Finding of sensatio n of nose 587741655 Completed 202105/04/2022 Problem Code: R43.9; Problem Code Type: ICD-10; ALEKS gonzalez, [employer] 2 14:24:25 Exposure to SARS-CoV -2 Completed 202105/04/2022 Problem Code: Z20.822; Problem Code Type: ICD-10; ALEKS gonzalez, [employer] 2 14:24:25 Noninfec tious gastroen teritis 43099801 Completed 202105/04/2022 ALEKS gonzalez, [employer] 2 14:24:25 Umbilica l hernia 871348164 Active 2023 Problem Code: K42.9; Problem Code Type: ICD-10; Bia Santiago NP [address] [place] [address], [address] , [employer] 4 14:40:56 Type 2 diabetes mellitus without complica tion 000938677 Active 2023 Kaelyn Sanchez APRN [address] [place] [address], [address] [place] [address] , [employer] 5 12:09:41 Essentia l hyperten artemio 64082292 Active 2023 Kaelyn Sanchez APRN [address] [place] [address], [address] , [employer] 5 11:42:00 Gastroes ophageal reflux disease without esophagi tis 608153555 Active 2024 Bia Santiago NP [address] [place] [address], [address] , [employer] 5 14:14:09 Streptoc occal sore throat 85538277 Active 2024 Bia Santiago NP [address] [place] [address], [address] , [employer] 14:41:39 Sore throat 549981984 Active 2024 Bia Santiago NP [address] [place] [address], [address] , [employer] 14:41:40 Type 2 diabetes mellitus 43288752 Active 2024 Kaelyn Sanchez APRN [address] [place] [address], [address] , [employer] 14:14:00 Recurren t sinusiti s 762485243 Active 2024 Kaelyn Sanchez APRN [address] [place] [address], [address] , [employer] 14:18:29 Fatigue 94472453 Active 2024 Kaelyn Sanchez APRN [address] [place] [address], [address] , [employer] 11:49:34 Acquired hypothyr oidism 213527552 Active 2024 Kaelyn Sanchez APRN [address] [place] [address], [address] , [employer] 11:46:15 Male hypogona dism 36717283 Active 2024 Kaelyn Sanchez APRN [address] [place] [address], [address] , [employer] 11:46:25 Problem Notes None recorded. Procedures Surgical History Date Name Laterality Status Provider Name and Address Organization Details Recorded Time 5 Skin Tag Removal completed Kaelyn Sanchez APRN [address] [place] [address], [address], [employer] 07/13/2024 16:37:13 4 Cerumen Removal completed Kaelyn Sanchez APRN [address] [place] [address], [address], [facility] [employer] 07/15/2023 10:09:28 Imaging Results None recorded. Procedure Notes None recorded. Medical Equipment None Reported. Allergies Allergen ID Allergen Name Allergen Category Reaction Reaction Severity Criticality Documentation Date Start Date Code Code System Note Provider Name and Address Organization Details Recorded Time 71029 hydrochlo rothiazid e medicatio n other Not available low 02/05/2023 5487 RxNorm GOUT Kaelyn Daniel, [employer] [address] [place], [address], [facility] [employer] 3 15:34:21 Medications Name Sig Start [...] propionate 50 mcg/actuat ion nasal spray,susp ension Moran 1 spray into each nostril every day. [...] Allergy 205.5 mcg (0.15 %) nasal spray Moran 1 spray twice a day by intranas [...] Updated DateTime 5 187.96 cm 50.6 kg/m2 889009. 39 g 97.2 [degF] 86 /min 96 % 96 % 117/80 mm[Hg] ROSA WAL[employer] 11:40:13 Social History Question Answer Notes LastModified by Organizat ion Details LastModified Time Tobacco Smoking Status Former Smoker Mary gonzalez [employer] 01/20/2024 16:04:43 Do You Have An Advance Directive? No [email or web address] Information not available 05/04/2022 Is Your Home Air Conditioned? Yes Information not available 11/21/2022 Do You Wear A Helmet When Biking? No [email or web address] Information not available 06/11/2024 Are You Blind Or Do You Have Difficulty Seeing? No [email or web address] Information not available 05/04/2022 Are You A Caregiver? No [email or web address] Information not available 02/13/2023 In The 14 Days Before Symptom Onset, Have You Had Close Contact With A Laboratory-confir med COVID-19 While That Case Was Ill? No [email or web address] Information not available 05/04/2022 In The 14 Days Before Symptom Onset, Have You Had Close Contact With A Person Who Is Under Investigation For COVID-19 While That Person Was Ill? No [email or web address] Information not available 05/04/2022 Have You Been To An Area Known To Be High Risk For COVID-19? No [email or web address] Information not available 05/04/2022 Are You Deaf Or Do You Have Serious Difficulty Hearing? No [email or web address] Information not available 05/04/2022 What Type Of Diet Are You Following? REGULAR [email or web address] Information not available 06/11/2024 Who Is Your Employer? [employer] Information not available 01/15/2024 Have There Been Any Changes To Your Family Or Social Situation? No [email or web address] Information no t available 02/13/2023 When Did You Quit Smoking? 1-5yearssincel [email or web address] Information not available 01/28/2024 Are There Any Guns Present In Your Home? Yes [email or web address] Information not available 05/04/2022 Which Of Your Hands Is Dominant? Right Information not available 12/19/2022 Do You Have A Medical Power Of Director Of Collections? No Information not available 05/04/2022 What Was The Date Of Your Most Recent Tobacco Screening? 03/16/2025 Information not available 03/16/2025 What Is Your Current Pack Years? [email or web address] Information not available 01/28/2024 Do You Have Any Pets? Yes Information not available 02/13/2023 What Is Your Relationship Status? [email or web address] Information not available 05/04/2022 Do You Use Your Seat Belt Or Car Seat Routinely? Yes [email or web address] Information not available 05/04/2022 Are You Sexually Active? Yes [email or web address] Information not available 06/11/2024 Do You Have Smoke And Carbon Monoxide Detectors In Your Home? Yes Information not available 11/21/2022 Are You Passively Exposed To Smoke? No Information no t available 11/21/2022 Are There Any Smokers In Your House? No Information not available 11/21/2022 Do You Participate In Social Media? Yes [email or web address] Information not available 06/11/2024 Do You Use Sunscreen Routinely? No [email or web address] Information not available 05/04/2022 Has Tobacco Cessation Counseling Been Provided? No [email or web address] Information not available 02/13/2023 Have You Recently Traveled Abroad? No [email or web address] Information not available 05/04/2022 Do You Have Difficulty Walking Or Climbing Stairs? No [email or web address] Information not available 05/04/2022 Are You Currently In School? No [email or web address] Information not available 05/04/2022 Do You Have Any Dietary Restrictions? No [email or web address] Information not available 06/11/2024 Sex: Male Functional Status Question Answer Note LastModified by Organizat ion Details LastModified Time Do you use any illicit or recreational drugs? No [email or web address] Information not available 02/13/2023 Do you or have you ever used any other forms of tobacco or nicotine? No drobirds Information not available 02/08/2024 What is your level of alcohol consumption? None [email or web address] Information not available 05/04/2022 Do you or have you ever used smokeless tobacco? Current snuff user [email or web address] Information not available 05/04/2022 Are you currently employed? Yes [email or web address] Information not available 02/13/2023 Do you have transportation difficulties? No [email or web address] Information not available 05/04/2022 Are you able to walk independently without assistance or assistive devices? YESWOREST [email or web address] Information not available 05/04/2022 Do you have difficulty doing errands alone? No Information not available 05/04/2022 Are you able to care for yourself independently? Yes [email or web address] Information not available 05/04/2022 Do you have difficulty dressing, bathing, grooming, or toileting? No Information not available 05/04/2022 Do you or have you ever used e-cigarettes or vape? Never used electronic cigarettes [email or web address] Information not available 02/13/2023 Mental Status Question Answer Note LastModified by Organizat ion Details LastModified Time Do you feel stressed (tense, restless, nervous, or anxious, or unable to sleep at night)? [id number] Information not available 06/11/2024 Do you have difficulty concentrating, remembering or making decisions? No [email or web address] Information no t available 05/04/2022 Family History Relationship Description Onset Age of this Age Resolved Age Notes LastModified by Organization Details LastModified Time Sister Family history of breast cancer [email or web address] Not available 11/2022 14:20:18 Mother Family history of Hypertension [email or web address] Not available 02/13/2023 14:20:27 Mother Family history of diabetes mellitus type 2 [email or web address] Not available 11/2022 14:21:09 Father Family history of alcoholism [email or web address] Not available 14:20:41 Paternal Grandmother Family history of Anxiety state [email or web address] Not available 11/2022 14:20:51 Maternal Grandmother Family history of breast cancer [email or web address] Not available 11/2022 14:20:22 Medical History Condition Response Emergency room visit since last appointm ent. N Obesity Y Acid Reflux (GERD) Y Allergies/Hayfever N Hospitalizations N Acne N Diabetes Y Hypertension Y Immunizations Vaccine Type Date Status Note Provider Nam e and Address Organization Details Recorded Time Tdap 5 completed Not Available [facility] 02/13/2022 23:17:26 Tdap 1 completed ALEKS CARDENAS null, [employer] 05/04/2022 14:34:20 Td (adult), 2 Lf tetanus toxoid, preservative free, adsorbed 4 completed ALEKSMERRITT GROSSNER null, [employer] 05/04/2022 14:34:20 Hep B, adolescent or pediatric 3 completed ALEKS THERESA null, [employer] 05/04/2022 14:34:20 Hep B, adolescent or pediatric 2 completed ALEKS THERESA null, [email or web address] 05/04/2022 14:34:20 Influenza, split virus, trivalent, preservative 0 completed ALEKSMERRITT CARDENAS null, [employer] 05/04/2022 14:34:20 MMR 2 completed ALEKS CARDENAS null, [employer] 05/04/2022 14:34:20 Hep B, adolescent or pediatric 2 completed ALEKS CARDENAS null, [email or web address] 05/04/2022 14:34:20 varicella 2 completed ALEKS CARDENAS null, [employer] 05/04/2022 14:34:20 Influenza, split virus, trivalent, preservative 9 completed ALEKS CARDENAS [facility], [facility] 05/04/2022 14:34:20 Past Encounters Encounter ID Performer Location Encounter Start Date Encounter Closed Date Diagnosis/Indication Diagnosis SNOMED-CT Code Diagnosis ICD10 Code Diagnosis IMO Codes Diagnosis Note [id number] Kaelyn Sanchez [address] [address] 03/02/2025 11:13:12 03/02/2025 12:35:24 Type 2 diabetes mellitus without complication 561415794 E11.9 Increase Ozempic 0.5 mg, DM diet and exercise encouraged . No other med changes today. Essential hypertension 05724405 I10 DASH diet, exercise, continue weight loss efforts. Vitamin D deficiency 347 40285 E55.9 87572 Body mass index 40+ - severely obese 169484563 Z68.43 [id number] Fatigue 43112330 R53.83 [id number] Health Concerns Section Related Observation LastModified by Organization Detai ls LastModified Time None Recorded Concern Status LastModified by Organization Details LastModified Time None Recorded Payers Encounter Date Sequence Insurance Name Policy Number Policy Gomez Covered Member ID Gomez Member ID Guarantor Name 03/02/2025 1 [facility] (MEDICAID REPLACEMENT - HMO) Bob Munoz [id number] Bob Munoz Notes Date Note Type Note Provider Name and Address Organization Details Recorded Time 03/02/2025 text/html ROS as noted in the HPI Chief ComplaintFollow-up for diabetes management and weight loss, fatigue and tiredness, request for testosterone level checkHistory of Present IllnessBob Munoz returns for follow-up of diabetes management [...] since losing weight. Kaelyn Sanchez APRN [address] [facility], [place], [address], [facility] [employer] 03/02/2025 12:10:40
[2025-04-25 10:23] VITALS: BP 127/78; PULSE 78; RESP 20; TEMP 36.8; O2SAT 97; BMI 48.7
--- NOTE | 2025-04-25 10:27 | HMH.EDGENADL ---
Discharge Plan Disposition Patient Disposition: Home, Self-Care Prescriptions Prescriptions: No Action losartan 50 mg tablet 50 mg PO DAILY Patient Comments: TAKE ONE TABLET BY MOUTH EVERY DAY metformin 500 mg tablet 500 mg PO DAILY aspirin 81 mg tablet,delayed release (DR/EC) 81 mg PO DAILY famotidine 20 mg tablet 20 mg PO BID Patient Comments: TAKE ONE TABLET BY MOUTH TWICE DAILY NEEDED metoprolol tartrate 50 mg tablet 50 mg PO BID Patient Comments: TAKE ONE TABLET BY MOUTH TWICE DAILY WITH A MEAL omeprazole 20 mg capsule,delayed release(DR/EC) 20 mg PO BID Patient Comments: TAKE ONE CAPSULE BY MOUTH TWICE DAILY FOR 7 DAYS then take 1 capsule once daily allopurinol 300 mg tablet 300 mg PO DAILY Patient Comments: TAKE ONE TABLET BY MOUTH ONCE DAILY FOR GOUT fluticasone propionate 50 mcg/actuation spray,suspension 1 spray INTRANASAL DAILY Patient Comments: [place] 1 spray into each nostril every day. loratadine 10 mg tablet 10 mg PO DAILY Patient Comments: TAKE ONE TABLET BY MOUTH EVERY DAY for allergies Ozempic 0.25 mg or 0.5 mg (2 mg/3 mL) pen injector 0.25 mg SQ WEEKLY Patient Comments: INJECT 0.5 MG WEEKLY SUBCUTANEOUSLY FOR DIABETES Referrals Follow up/Referrals: Kaelyn Sanchez [Primary Care Provider, Medical] - See instructions Activity Restrictions/Add. Instructions Additional Instructions/Restrictions: Follow-up with your primary care doctor this week if symptoms do not improve. You can take 600 mg of ibuprofen every 6-8 hours as needed to help with your symptoms. You received a steroid shot and a Toradol shot here in the emergency department. The steroid shot can make your blood sugar rise, I do encourage you to monitor closely over the next several days. If you develop any new or worsening symptoms, or if you become concerned for your help for any reason, return to the emergency department for evaluation. Clinical Impressions Clinical Impression: Gout flare Print Language Print Language: Ukrainian Discharge ED Provider: Shashank Kelly Adult HPI General Chief complaint: PAIN Stated complaint: Right Foot Pain Time Seen by Provider: 04/25/25 10:17 History of Present Illness HPI narrative: Bob Munoz is a 35-year-old male with a history of diabetes mellitus, gout who presents to the emergency department for complaints of a gout flare. Patient states over the last 2 days, he has had increased pain and swelling to his right lateral ankle, which is where he typically gets gout. He states that this feels similar to previous gout flares that he typically gets injections of Toradol and steroids for through his PCP. He states that he has been taking colchicine at home and is prescribed allopurinol. He took a dose of colchicine yesterday, however did not improve symptoms, which worsened today. He denies any fevers. He denies any trauma to the area. He has been ambulatory but it hurts to walk. Related Data Home Medications ?Medication ?Instructions ?Recorded ?Confirmed allopurinol 300 mg tablet 300 mg PO DAILY 07/10/24 07/10/24 aspirin 81 mg tablet,delayed 81 mg PO DAILY 07/10/24 07/10/24 release famotidine 20 mg tablet 20 mg PO BID 07/10/24 07/10/24 fluticasone propionate 50 1 spray intranasal DAILY 07/10/24 07/10/24 mcg/actuation nasal spray,suspension loratadine 10 mg tablet 10 mg PO DAILY 07/10/24 07/10/24 losartan 50 mg tablet 50 mg PO DAILY 07/10/24 07/10/24 metformin 500 mg tablet 500 mg PO DAILY 07/10/24 07/10/24 metoprolol tartrate 50 mg tablet 50 mg PO BID 07/10/24 07/10/24 omeprazole 20 mg capsule,delayed 20 mg PO BID 07/10/24 07/10/24 release semaglutide 0.25 mg or 0.5 mg (2 0.25 mg SQ WEEKLY 07/10/24 07/10/24 mg/3 mL) subcutaneous pen injector (Ozempic) Allergies Allergy/AdvReac Type Severity Reaction Status Date / Time No Known Allergies Allergy Verified 07/25/22 10:43 [facility] Disclaimer: The information contained in this section may have been updated after the patient was seen, as this information can be updated by other users. Medical History (Updated 04/25/25 @ 10:26 by Shashank Kelly MD) Anxiety Diabetes mellitus, type 2 Hypertension Social History Smoking Status: Current every day smoker alcohol intake: current current occupational status: employed Travel in the last 8 weeks?: None Have you lived/traveled outside [place] in past 30 days?: No Contact w/someone who lives/traveled outside US past 30 days?: No Exposure to someone with infectious disease in past 14 days?: No Do you have a fever (greater than 100.4 F or 38 C)?: No Have you tested positive for COVID-19?: No Exposed to someone with COVID-19 in past 14 days?: No Do you have a sore throat?: No Do you have a cough?: No Do you have any weakness?: No Do you have any diarrhea?: No Are you experiencing any unusual bleeding?: No Do you have any muscle aches/pain?: No Do you have any abdominal pain?: No Are you experiencing loss of taste or smell?: No Other Medical History Have you received the Flu Vaccine for this season: No Have you received the Pneumonia Vaccine: No ROS Obtained: Yes Systems reviewed as appropriate & no additional complaints except as documented Physical Exam General General appearance: alert, in no apparent distress and obese Head Head exam: atraumatic Eye Eye exam: Present normal appearance ENT ENT exam: Present normal external ear exam Neck Neck exam: Present full ROM Chest Chest inspection: Present symmetric chest wall rise Respiratory Respiratory exam: Present normal lung sounds bilaterally; Absent respiratory distress Cardiovascular Cardiovascular exam: Present regular rate and normal rhythm Abdominal Exam Abdominal exam: Present soft exam: Present deferred Extremities Exam Extremities exam: Present normal inspection Expanded Lower Extremity Exam Right: Ankle image:  1. Mild swelling, warmth. 2+ DP pulses and PT pulses. Full range of motion at the ankles with dorsiflexion and plantarflexion. Sensation intact distally. Less than 2 send capillary refill Back Exam Back exam: Present normal inspection Neurological Exam Neurological exam: Present alert and oriented X3 Psychiatric Psychiatric exam: Present normal affect Skin Skin exam: Present warm and dry Medical Decision Making Medical Records Screening: Per USPSTF and CDC recommendations, given the prevalence of disease in our region, it is our hospital?s policy to screen for HIV and viral Hepatitis for all patients aged 18 and over and those with ongoing risk factors. [place] Inquiry Pt receiving controlled substance: No Vital Signs: 04/25/25 10:23 04/25/25 10:34 Temperature 98.3 F 98.2 F Temperature Source Oral Pulse Rate 86 Pulse Rate [Left Radial] 78 Respiratory Rate 20 20 Blood Pressure 133/77 Blood Pressure [Right Arm] 127/78 Blood Pressure Mean [Right Arm] 94 02 Sat by Pulse Oximetry 97 Oxygen Delivery Method Room Air Room Air Orders (Tests/Meds): ED MEDICATIONS Discontinued Medications Generic Name Dose Route Start Last Admin Trade Name Dayna PRN Reason Stop Dose Admin Dexamethasone Sodium Phosphate 4 mg 04/25/25 10:24 04/25/25 10:30 Dexamethasone 4mg/Ml 1ml Vial IM 04/25/25 10:25 4 mg ONCE ONE Administration Ketorolac Tromethamine 15 mg 04/25/25 10:24 04/25/25 10:30 Ketorolac 15mg/Ml Vial IM 04/25/25 10:25 15 mg ONCE ONE Administration Medical Decision Narrative: Bob Munoz is a 35-year-old male with a history of diabetes mellitus, gout who presents to the emergency department for complaints of a gout flare. Patient states over the last 2 days, he has had increased pain and swelling to his right lateral ankle, which is where he typically gets gout. He states that this feels similar to previous gout flares that he typically gets injections of Toradol and steroids for through his PCP. He states that he has been taking colchicine at home and is prescribed allopurinol. He took a dose of colchicine yesterday, however did not improve symptoms, which worsened today. He denies any fevers. He denies any trauma to the area. He has been ambulatory but it hurts to walk. On arrival, patient is hemodynamically stable, afebrile, breathing comfortably on room air with appropriate oxygen saturation. Physical exam, stated above, revealed an overall well-appearing male in no distress. He has some mild swelling and warmth to the right lateral malleoli or area and is slightly tender. He is neuro vastly intact distally with full range of motion at the ankle with dorsiflexion and plantarflexion. Less than two second capillary refill. 2+ DP and PT pulses. I considered obtaining x-rays as well as lab work, however patient states that this is where he has had gout flares in the past and has no systemic signs of infection and I have low concern for septic arthritis or fracture at this time. Patient states that he has had injections in the past to treat his gout flares that included Toradol and a steroid. Will provide patient with 50 mg of IM Toradol as well as 4 mg of IM dexamethasone. I did encourage him to follow-up with his primary care doctor this week for reevaluation and to ensure that symptoms are improving. Also given strict return precautions for any new or worsening symptoms. All questions were answered. He demonstrated understanding and was in agreement this plan. He was then discharged from the emergency department in stable condition peer Critical Care Critical Care Time Critical Care Time: No
[2025-04-25] MEDS: KETOROLAC 15MG/ML VIAL 15 MG IM (10:30)
[2025-04-25] MEDS: DEXAMETHASONE 4MG/ML 1ML VIAL 4 MG IM (10:30)
[2025-04-25 10:34] VITALS: BP 133/77; PULSE 86; RESP 20; TEMP 36.8; O2SAT 98
== END 2025-04-25 10:36 | disposition home or self-care (01) ==
PROVIDERS: Emergency Provider Student in an Organized Health Care Education/Training Program; PCP Nurse Practitioner Family
DX: M10.9 Gout, unspecified (principal)
CPT/HCPCS: 96372; 99283; J1100; J1885